=== PATIENT | female | born 1985 | race Caucasian/White ===

== ENCOUNTER → 2024-07-22 | Outpatient (CLI) | payer MEDICAID, SELFPAY ==
[2024-07-22 12:39] LABS: Absolute Lymphocyte Count 2.42 X10^3/uL (0.83-4.51); Absolute Neutrophil Count 2.6 X10^3/uL (2.0-7.7); Basophil# 0.07 X10^3/uL; Basophil% 1.3 % (0-1); Eosinophil# 0.11 X10^3/uL; Hematocrit 40.1 % (37-47); Hemoglobin 13.3 g/dL (12.0-15.0); Lymphocyte # 2.42 X10^3/ul (0.83-4.51); Lymphocyte % 43.4 % (19-41); Mean Corp Hgb Conc 33.2 g/dL (32-36); Mean Corpuscular Hgb 30.5 pg (27.0-32.0); Mean Platelet Vol. 9.9 fl (6.2-12.0); Monocyte# 0.41 X10^3/uL; Monocyte% 7.3 % (0-10); NRBC Flagged by Analyzer 0 % (0-5); Neutrophil # 2.55 X10^3/uL (2.7-7.7); Neutrophil % 45.6 % (47-70); Platelet Count 255 K/mm3 (150-450); RBC Distribution Width SD 40.8 fl (35.1-43.9); Red Blood Count 4.36 M/mm3 (4.2-5.4); White Blood Count 5.6 K/mm3 (4.4-11.0)
[2024-07-22 13:00] LABS: Vitamin D,25 Hydroxy 4.6 ng/mL
[2024-07-22 13:04] LABS: ALB/GLOB Ratio 1.2 RATIO (0.9-2.4); AST(SGOT) 15 U/L (15-37); Alanine Aminotransfer ALT/SGPT 30 U/L (13-56); Albumin, Serum 3.6 g/dL (3.2-5.0); Alkaline Phosphatase 53 U/L (45-117); Anion Gap 3 (5-15); BUN 9 mg/dL (7-18); Calcium,Total 8.6 mg/dL (8.5-10.1); Chloride 108 mmol/L (98-107); Creatinine, Serum 0.69 mg/dL (0.55-1.02); EST Glomerular Filtration Rate 99 mL/min (>60); Est Glom Filt Rate - Afr Amer 120 mL/min (>60); Ferritin 17 ng/mL (8-252); Globulin 3.1 g/dL (2.2-4.2); Glucose 78 mg/dL (74-106); Iron 36 ug/dL (50-170); Iron Binding Capacity,Total 284 ug/dL (250-450); PERCENT IRON SATURATION 12.7 % (15.0-55.0); Potassium 3.7 mmol/L (3.5-5.1); Protein, Total 6.7 g/dL (6.4-8.2); Sodium Level 136 mmol/L (136-145)
== END | disposition home or self-care (01) ==
PROVIDERS: PCP Family Medicine; Referring Provider Family Medicine; Visit Provider Family Medicine
DX: R63.6 Underweight (principal); K31.89 Other diseases of stomach and duodenum; N92.0 Excessive and frequent menstruation with regular cycle; Z13.1 Encounter for screening for diabetes mellitus
CPT/HCPCS: 36415; 80053; 82306; 82728; 83540; 83550; 84443; 85025

== ENCOUNTER → 2024-08-31 | Outpatient (CLI) | payer MEDICAID, SELFPAY | END | disposition home or self-care (01) | PROVIDERS: PCP Family Medicine; Referring Provider Family Medicine; Visit Provider Family Medicine | DX: E03.8 Other specified hypothyroidism (principal) | CPT/HCPCS: 36415; 84443 ==

== ENCOUNTER → 2024-09-24 | Outpatient (CLI) | payer MEDICAID, SELFPAY ==
--- NOTE | 2024-09-24 13:56 | VDUE_ITS ---
Reason For Study Reason For Study: Left hand pain Left Proximal Left jugular vein is spontaneous, widely patent, phasic, with no intraluminal echogenicity noted. Left subclavian vein is spontaneous, widely patent, phasic, with no intraluminal echogenicity noted. Left Arm Left axillary vein is spontaneous, patent, phasic, competent, compressible and demonstrates augmentation. Left brachial vein is compressible. Left cephalic vein is compressible. Left basilic vein is compressible. Left Lower Arm Left radial vein is compressible. Left ulnar vein is compressible. Superficial palmar arch vein noted that measures 0.11 x 0.12 cm is INCOMPETENT for greater than 0.5 seconds. Superficial palmar arch artery measures 0.12 x 0.13 cm, with a velocity of 27.8 cm/sec. VL/Venous Duplex US, Unilateral Interpretation Summary Deep veins of the left upper extremity are patent and compressible segmentally. There is no evidence of deep vein thrombosis. Superficial veins of the left upper extremity are patent and compressible segme ntally. There is no evidence of superficial vein thrombosis. Reflux noted in superficial vein on palmar surface Ordering Physician: Shayla Kauffman Referring Physician: Yokasta Miller Performed By: Yvette Sloan RVT ???
== END | disposition home or self-care (01) ==
LOC: CVS 13:52
PROVIDERS: PCP Family Medicine; Referring Provider Physician Assistant; Visit Provider Physician Assistant
DX: M79.642 Pain in left hand (principal); R22.32 Localized swelling, mass and lump, left upper limb
CPT/HCPCS: 93971

== ENCOUNTER 2025-01-18 11:03 | Outpatient (CLI) | payer MEDICAID, SELFPAY ==
[2025-01-18 13:33] LABS: Cholesterol 173 mg/dL (<=200); High Density Lipoprotein 63 mg/dL; Low Density Lipoprotein Calc. 93 mg/dL; Triglycerides 83 mg/dL; Very Low Density Lipoprotein 17 mg/dL (5-40); Vitamin D,25 Hydroxy 19.2 ng/mL (30-100); cholesterol:hdl ratio screen 2.74
--- OUTSIDE RECORDS SUMMARY | 2025-01-18 22:16 | XMS RPT_ITS | CCD ---
Author Organization [facility] Care Team Providers Care Testboard Operator Name Role Phone Latrice Horner Primary Care Provider [phone] Janell, Ms. Armin Mejia Attending Chloe Maciel, Ms. Armin Mejia Attending Chloe Horner MD, [facility] Primary Care Provider MICHAEL HERNANDEZ Attending Unavailable [facility] Evens RAIN, [facility] Primary Care Provider [phone] Maico RAIN, [facility] Primary Care Provider [phone] Shayla Kauffman Attending Unavailable Maico, Chalon Referring Unavailable Maico, Chalon Primary Care Unavailable Maico, Chalon Primary Care Unavailable Maico, Yokasta Attending Unavailable Maico, Chalon Referring Unavailable Maico, Ginnyon Attending Unavailable Maico, Chalon Referring Unavailable Maico, Chalon Primary Care Unavailable Neptali Murray Consulting Unavailabl e Kauffman, Shayla Attending Unavailable Kauffman, Shayla Referring Unavailable Maico, Chalon Primary Care Unavailable Brent Samuel Attending Unavailable Kauffman, Shayla Referring Unavailable Maico, Chalon Primary Care Unavailable Maico, Chalon Primary Care Unavailable Cassy Rosen Attending Unavailable Maico, Chalon Referring Unavailable NEPTALI MURRAY Attending Unavailabl e MAICO, CHALON Primary Care Unavailable NEPTALI MURRAY Referring Unavailabl e MAICO, CHALON Primary Care Unavailable NEPTALI MURRAY Attending Unavailabl e SELF Referring Unavailable MAICO, CHALON Primary Care Unavailable Allergies Allergy Classification Reported Allergen(s) Allergy Type Date of Onset Reaction(s) Facility (12 sources) Cefadroxil; Translations: [CEFADROXIL] Drug Allergy 6 Hives, Itching, Unknown [facility] [place] (1 source) Azithromycin Drug Allergy 5 [facility] Medications Current Medications Medication Drug Class(es) Dates Sig (Normalized) Sig (Original) 24 hr buPROPion hydrochloride 300 mg extended release oral tablet (1 source) Aminoketone Start: 0 take 1 tablet by mouth once daily in the morning buPROPion (WELLBUTRIN XL) 300 MG extended release tablet Indications: Adjustment reaction with anxiety and depression Take 1 tablet by mouth every morning 30 tablet 13 09/23/2019 Active citalopram 20 mg oral tablet (5 sources) Serotonin Reuptake Inhibitor Start: 2 End: 4 take 1 tablet by mouth once daily citalopram (CeleXA) 20 MG tablet Indications: Adjustment reaction with anxiety and depression Take 1 tablet (20 mg) by mouth daily. 90 tablet 3 08/26/2022 08/26/2023 Active clonazePAM 0.5 mg oral tablet (1 source) Benzodiazepine take 0.25 mg by mouth every twelve hours as needed clonazePAM (KLONOPIN) 0.5 mg tablet Take 0.25 mg by mouth two times a day as needed for anxiety. Active diphenhydrAMINE hydrochloride 25 mg oral capsule (4 sources) Histamine-1 Receptor Antagonist diphenhydrAMINE (BENADryl) 25 MG capsule Take 25 mg by mouth. 0 Active ibuprofen 200 mg oral tablet (4 sources) Nonsteroidal Anti-inflammatory Drug take 1 tablet by mouth every six hours as needed ibuprofen 200 MG tablet Take 200 mg by mouth every 6 hours as needed. 0 Active Magnesium Oxide (4 sources) magnesium oxide (Mag-Ox) 400 mg tablet 400 mg as needed. 0 Active methylPREDNISolone 4 mg oral tablet (1 source) Corticosteroid Start: 0 methylPREDNISolone (MEDROL DOSEPACK) 4 MG tablet Indications: Hand pain, left , Thumb pain, left Take by mouth. 1 kit 0 01/03/2020 Active Completed/Discontinued Medications Medication Drug Class(es) Dates Sig (Normalized) Sig (Original) lamoTRIgine 200 mg oral tablet (14 sources) Mood Stabilizer, Anti-epileptic Agent Start: 06-28-2022 End: 09-23-2023 take 1 tablet by mouth once daily lamoTRIgine (LaMICtal) 200 MG tablet Indications: Adjustment reaction with anxiety and depression Take 1 tablet (200 mg) by mouth daily. 90 tablet 3 08/26/2022 09/26/2022 Discontinued Start: 09-23-2019 take 1 tablet by mandy once daily lamoTRIgine (LAMICTAL) 200 MG tablet Indications: Adjustment reaction with anxiety and depression Take 1 tablet by mouth daily 30 tablet 13 09/23/2019 Active LAMOTRIGINE (PINEDO ICTAL ODT ORAL) Take by mouth. Active Problems Active Problems Problem Classification Problem Date Documented Da te Episodic/Chronic Adjustment disorders (11 sources) Adjustment disorder with mixed anxiety and depressed mood; Translations: [Adjustment disorder with mixed anxiety and depressed mood] Onset: 12-06-2015 12-06-2015 Chronic Other aftercare (3 sources) Other intermodal customer service (current) drug therapy; Translations: [Other intermodal customer service (current) drug therapy] Onset: 01-20-2023 Episodic Other connective tissue disease (1 source) Pain in left hand; Translations: [Pain in left hand] Onset: 10-06-2024 Episodic Other connective tissue disease (1 source) Pain of left hand; Translations: [Pain in left hand] 12-10-2024 Episodic Other connective tissue disease (1 source) Pain of left hand; Translations: [Hand pain, left] Other connective tissue disease (1 source) Pain in left thumb; Translations: [Thumb pain, left] Other nutritional; endocrine; and metabolic disorders (1 source) Underweight; Translations: [Underweight] Onset: 09-06-2024 Episodic Other skin disorders (3 sources) Mass of hand; Translations: [Localized swelling, mass and lump, left upper limb] 09-18-2024 Episodic Other skin disorders (2 sources) Disorder of left upper extremity; Translations: [Localized swelling, mass and lump, left upper limb] 10-07-2024 Episodic Other skin disorders (1 source) Localized swelling, mass and lump, left upper limb; Translations: [Localized swelling, mass, or lump of left upper extremity] Onset: 11-01-2024 Episodic Thyroid disorders (1 source) Other specified hypothyroidism; Translations: [Other specified hypothyroidism] Onset: 09-15-2024 Chronic Unclassified (1 source) New Onset: 09-17-2024 Past or Other Problems Problem Classification Problem Date Documented Da te Episodic/Chronic Blindness and vision defects (6 sources) Myopia; Translations: [Myopia, unspecified eye] Onset: 12-04-2015 12-04-2015 Episodic Unclassified (2 sources) Disorder of left upper extremity 10-07-2024 Results Test Name Value Interpretation Reference Range Leroy Avila 12-10-2024 CNOV Office Visit (AGHWW1 ) SHANNON DUNN ([id number]) 1985 F Date Time Provider Department 12/10/24 1:00 PM NEPTALI MURRAY AGHWW1 During your visit today, we recorded the following information about you: Respiration Weight Height 20/minute 47.2 kg 1.6 m Neptali Murray MD 12/10/2024 4:06 PM Signed Hand Clinic Follow-up Note Prior Hx: 2019 L thenar mass arose 09/24/24 U/S LUE-no DVT, reflux noted in superficial vein on palmar surface 11/06/24 MRI L hand-no obvious soft tissue mass Interval Hx: Mona is a 39-year-old female presenting for evaluation of a left thenar mass. Left Thenar Mass: - Persistent left thenar mass with no change in symptoms. - Describes a pressure pain rather than sharp or stabbing pain. - Aggravated by using the hand, particularly the thumb; worsens with activities such as playing guitar, video games, and floor exercises. - Experiences a pulling sensation at night, affecting sleep. - Notable swelling and pain when holding objects, such as washing dishes. - Avoids using the left hand due to discomfort. - Ultrasound on 09/24/2024 showed no DVT, but noted reflux in a superficial vein. - MRI on 11/06/2024 showed no obvious mass. Exam: - Musculoskeletal: - Left Hand: - Skin intact, able to make a full fist. - No tenderness over the CMC joint, radial styloid, or FCR tendon. - No triggering of the thumb. - No pain with resistive wrist flexion. - Prominent vein over the proximal portion of the thenar eminence, not present on the contralateral side. - Tenderness over the prominent vein on the thenar eminence. Imaging: Imaging: - (11/06/2024) MRI of the left hand: No obvious mass or uptake. - (09/24/2024) Ultrasound of the left hand: No evidence of deep venous thrombosis; mild reflux in the superficial vein. Assessment/Plan: (M79.642) Pain in left hand New and/or prior imaging was reviewed with the pt 1. Pain in left hand (M79.642) - Persistent pain and swelling in the left thenar region, exacerbated by hand use and thumb motion; described as a pressure pain with a pulling sensation at night. - Ultrasound on 09/24/2024 showed no DVT, but noted reflux in a superficial vein. MRI on 11/06/2024 showed no obvious mass. - Physical exam reveals intact skin, full fist formation, no tenderness over CMC, radial styloid, or FCR tendon. No triggering of the thumb. Prominent vein observed over the proximal portion of the thenar eminence, not present on the contralateral side. Tenderness noted upon palpation of the prominent vein. - Discussed potential surgical intervention to ligate and excise the prominent vein, but also considered referral to vascular surgery for further evaluation and potential alternative treatments such as coiling. - Patient agrees with the plan to consult vascular surgery. - Referral to vascular surgery initiated for further evaluation and management. I was very colin with the patient and explained that I have never seen a vein like this in the hand that causes pain with pressure, it is possible, but I cannot guarantee that this is her pain generator That being said on exam, the vein is definitely there and it is more prominent than the contralateral side I do want her to get a second opinion from vascular surgery before we do surgery on the hand ourselves If she does want surgery, at this point it has been 5 years and she has had multiple test, I do think it is reasonable to make a Verna incision over the thenar eminence and ligate the prominent veins, I did explain that this would give her a scar which also may be painful, and I told her that I cannot guarantee that this is going to solve her problem, I would only do the surgery if it was a last resort for her because she cannot get relief from anything else and with the expressed understanding that she knows this may not make her better Return to clinic after vascular Will continue to monitor patient for Pain in left hand, patient to schedule visit as per follow up discussed. Medical Decision Making: Problems: Moderate: 1+ chronic illnesses with change Data: Unique test result(s) reviewed: 2 Risk: Moderate: Moderate risk from testing/treatment Medical Decision Making Level: 4 - Moderate Neptali Murray MD Hand Surgery *The above reflects my independent exam and review. I saw and examined the patient myself personally. Parts of the HPI, ROS, exam, and impression/plan may have been copied from my previous clinical note and remain pertinent. Current changes have been made and documented today. Other parts or date were deleted if not relevant for today. Plan as outlined.* *This note was produced using speech recognition software and may contain errors related to that system including but not limited to punctuation, spelling, grammar, gender, and words (more content not included)... Normal [facility] MRI HAND WO IVCON LTon 11-01 MRI HAND WO IVCON LT * * *Final Report* * * DATE OF EXAM: Nov 01 2024 5:25PM AWM 0200 - MRI HAND WO IVCON LT / PROCEDURE REASON: Localized swelling, mass, or lump of left upper extremity * * * * Physician Interpretation * * * * EXAM: MRI HAND WO IVCON LT HISTORY: Localized swelling, mass, or lump of left upper extremity . Pain on palm at 1st MCP and CMC joint, worsening since 2019, no known injuries TECHNIQUE: MRI HAND WO IVCON LT. Multiplanar multisequence imaging of the left hand was performed without contrast material. COMPARISON: X-ray 09/17/2024. RESULT: Osseous structures: No fracture, stress reaction, avascular necrosis, or focal osseous lesion identified. Joints: Small distal radial ulnar joint effusion. Mild osteoarthropathy of the radial side of the wrist with small osteophytes and some cartilage thinning. There is subchondral cyst within the third metacarpal head 0.5 cm. Mild metacarpal phalangeal and interphalangeal cartilage thinning. Ligaments: No evidence of tear. Tendons: Flexor tendons: No evidence of tear. Trace amount of flexor pollicis tendon tenosynovitis at the proximal phalanx series 3 image 9. Extensor tendons: Normal. No tear. No evidence of tenosynovitis. Abductor/adductor: No evidence of tear or tenosynovitis. Nerves: Normal signal and size of the median nerve within the carpal tunnel. Normal signal and size of the ulnar nerve within Guyon's canal. Soft tissues: Trace amount of superficial susceptibility artifact seen along the thumb at the distal phalanx, palmar aspect series 4 image 7. Findings can be seen with previous trauma, surgery or foreign body or could be along the skin surface. No foreign body seen on the comparison x-ray. No soft tissue mass or cyst. IMPRESSION: 1. Mild osteoarthropathy wrist and hand. 2. Trace susceptibility artifact seen along the distal thumb, palmar aspect. Findings can be seen with previous trauma, surgery or foreign body. No foreign body is seen on the comparison x-ray. This could also represent contamination on the skin surface. This is of doubtful clinical significance. 3. Trace flexor pollicis tendon tenosynovitis at the proximal phalanx. 4. No noncontrast MRI evidence of osseous or soft tissue mass or other acute finding. Environmental Health And Safety Intern: [facility] Transcribe Date/Time: Nov 06 2024 10:24A Dictated by : GUILLERMINA YANCEY MD This examination was interpreted and the report reviewed and electronically signed by: GUILLERMINA YANCEY MD on Nov 06 2024 10:31AM EST [id number] Normal [facility] Venous Duplex US, Unilateral on 09-24-2024 Venous Duplex US, Unilateral [facility] [address] [place] [address] Venous Duplex US, Unilateral 09/24/24 1357 MR#: [id number] Acct: [id number] Name: SHANNON DUNN Rep #: [id number] : 1985 39 From: Brent Samuel MD Attending Dr: ROJELIO Bryan Status: REG CLI Ordering Dr: Shayla Kauffman Date: 09/24/24 Location: [facility] Sex: F C Admitted: Reason For Study Reason For Study: Left hand pain Left Proximal Left jugular vein is spontaneous, widely patent, phasic, with no intraluminal echogenicity noted. Left subclavian vein is spontaneous, widely patent, phasic, with no intraluminal echogenicity noted. Left Arm Left axillary vein is spontaneous, patent, phasic, competent, compressible and demonstrates augmentation. Left brachial vein is compressible. Left cephalic vein is compressible. Left basilic vein is compressible. Left Lower Arm Left radial vein is compressible. Left ulnar vein is compressible. Superficial palmar arch vein noted that measures 0.11 x 0.12 cm is INCOMPETENT for greater than 0.5 seconds. Superficial palmar arch artery measures 0.12 x 0.13 cm, with a velocity of 27.8 cm/sec. VL/Venous Duplex US, Unilateral Interpretation Summary Deep veins of the left upper extremity are patent and compressible segmentally. There is no evidence of deep vein thrombosis. Superficial veins of the left upper extremity are patent and compressible segmentally. There is no evidence of superficial vein thrombosis. Reflux noted in superficial vein on palmar surface Ordering Physician: Shayla Kauffman Referring Physician: Yokasta Miller Performed By: Yvette Sloan Luca ??? 09/28/24 0814 Date Brent Samuel MD CC: ROJELIO Bryan; Dr. Yokasta Millre MD Date Dictated: 09/24/24 1357 Date Transcribed: 09/28/24813 Environmental Health And Safety [facility] (AGHWW1 ) SHANNON DUNN ([id number]) 1985 F Date Time Provider Department 09/17/24 11:00 AM NEPTALI MURRAY AGHWW1 During your visit today, we recorded the following information about you: Temperature Weight Height 98.3 degrees 47.2 kg 1.6 m Adrian Guillory Tech 09/18/2024 11:59 AM Signed REVIEW OF SYSTEMS: GENERAL: Well developed, well nourished. No acute distress PAIN: Negative for pain, history of chronic pain or current treatment for chronic pain conditions CARDIOVASCULAR: Negative for chest pain, leg swelling and palpations. MSK: Negative for joint swelling SKIN: Negative for lesions, rash, itching, metal sensitivity NEURO: Numbness/tingling of extremties ENDOCRINE: Negative for diabetic associated symptoms HEMATOLOGY: Negative for excessive bleeding, clots, bleeding disorders. Neptali Murray MD 09/18/2024 11:59 AM Signed Hand Surgery New Pt Note HPI: 39-year-old female [id number] not working No diabetes, no smoking She thinks that in 2019 this thenar mass arose and it has been worked up at [facility] Never had an MRI Never had an injury Initially did not cause any other pain Now she has a hard time doing some ADLs and playing the guitar and she gets some swelling and tightness it is hard to put pressure over this area No evidence of any other lumps or bumps in the body PMH: History reviewed. No pertinent past medical history. ALLERGIES Allergen Reactions Duracef [Cefadroxil] Unknown Social History Tobacco Use Smoking status: Former Types: Cigarettes Smokeless tobacco: Never Substance Use Topics Alcohol use: Not Currently Drug use: Never Review of Systems: 12 point review of systems was performed and found to be non-contributory Exam: Left hand Skin intact Full finger flexion/extension, FPL/EPL intact SILT m/r/u Fingers wwp It is hard to feel, but there seems to be a 2 x 1 cm mass over the ulnar aspect of the thenar eminence, it almost feels like a vein that is being rolled over, this is not present on the contralateral side though and can feel something, she is slightly tender to palpation when I push year Imaging: XR 3 views left hand No obvious bony pathology Assessment/Plan: (R22.32) Mass of left hand (primary encounter diagnosis) New and/or prior imaging was reviewed with the pt Unclear exactly what this is, it could just be a prominent vein, could be a clotted vein, she is scheduled for vein ultrasound at [facility] and I think she should get this I told her that after she sends me these results, we can decide if this is something that needs a procedure or if I want to get an MRI to obtain more information Return to clinic after she gets the pain ultrasound Will continue to monitor patient for Mass of left hand (primary encounter diagnosis), patient to schedule visit as per follow up discussed. Medical Decision Making: Problems: Moderate: New problem with uncertain prognosis Data: Unique test(s) ordered: 1 Risk: Low: Low risk from testing/treatment Medical Decision Making Level: 3 - Low Neptali Murray MD Hand Surgery *The above reflects my independent exam and review. I saw and examined the patient myself personally. Parts of the HPI, ROS, exam, and impression/plan may have been copied from my previous clinical note and remain pertinent. Current changes have been made and documented today. Other parts or date were deleted if not relevant for today. Plan as outlined. *This note was produced using speech recognition software and may contain errors related to that system including but not limited to punctuation, spelling, grammar, gender, and words or phrases that may be inappropriate.* Allergies As of Date: 09/17/2024 Noted Allergy Reaction DURACEF (CEFADROXIL) 12/04/2015 16 - Unknown Date Reviewed: 09/17/2024 Reviewed by: Adrian Guillory Tech - Fully Assessed Reason for Visit: New [293817] Pain [78] Primary Visit Diagnosis:Mass of left hand [R22.32] Order(s):XR HAND GENERAL 3V PA/LAT/OBL LEFT [[id number]] Order #: [id number] Prescriptions as of 09/18/2024 - LAMOTRIGINE (LAMICTAL ODT ORAL) Take by mouth. Problem List As Of Date 09/17/2024 Noted Resolved Myopia [H52.10] 12/04/2015 Letter Text Encounter Status:Closed by NEPTALI MURRAY on 09/18/24 [facility] 09-09-2024 CNPN Telephone (AGPOB1) SHANNON DUNN ([id number]) 1985 F Date Time Provider Department 09/09/24 NEPTALI MURRAY AGPOB1 During your visit today, we recorded the following information about you: Jolly Merino 09/09/2024 2:26 PM Signed ----- Message from Shayla Segovia sent at 09/09/2024 12:52 PM EST ----- Regarding: Orthopedics / Hand: RFV Not Found / RFV Not Found In Schd Tool // an artery is budging out of left hand palm causing swelling between palm and left thumb Orthopedics / Hand: RFV Not Found / RFV Not Found In Schd Tool // an artery is budging out of left hand palm causing swelling between palm and left thumb Patient has been identified by name and Date of (Y/N): yes Patient: Shannon Dunn Date of : 1985 Previous Provider Seen: n/a Body Part(s) Identified: left hand Diagnosis/Reason For Visit: artery issue Reason for the call/escalation: Dx not in tool If reason for call/escalation is discharge from ED/ER or Hospital, which facility was the patient seen at: patient saw vascular surgeon who referred her to ortho hand doctor Was an appointment scheduled (Y/N): no Person calling if other than patient: no Return call to if other than patient: no Best contact number: [phone] Thank you, Shayla Gunderson September 09, 2024 12:55 PM Jolly Merino 09/09/2024 2:26 PM Signed APPT ,MADE Allergies As of Date: 09/09/2024 Noted Allergy Reaction DURACEF (CEFADROXIL) 12/04/2015 16 - Unknown Date Reviewed: 12/04/2015 Reviewed by: Rochelle Sanchez - Fully Assessed Reason for Visit: Consult [502] Prescriptions as of 09/09/2024 - LAMOTRIGINE (LAMICTAL ODT ORAL) Take by mouth. 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 [address] [place] [address] OFFICE VISIT Date of Service: 08/31/24 MR#: [id number] Acct: [id number] Name: SHANNON DUNN Rep #: [id number] : 1985 Provider: ROJELIO Bryan Age/Sex: 39/F Location: [facility] Status: Signed Intake Vital Signs 08/05/24 10:10 08/31/24 08:40 Height 5 ft 3 in Weight: 104 lb BP 102/62 Blood Pressure Location Lt brachial Position Sitting Respiration 16 Pulse 85 Pulse Source Monitor Temp 97.7 F L Temp Source Temporal Pulse Oximetry (%) 100 Oxygen Delivery Method room air Intake Visit Reasons: Varicose Veins w/ Complications Chief Complaint: abdominal pain Is patient in pain?: No Allergies azithromycin Allergy (Intermediate, Verified 08/31/24 08:42) Rash Medications ???Medication ???Instructions ???Recorded ???Confirmed ???Type clonazepam 2 mg tablet (Klonopin) 2 mg PO QDAY 08/02/24 History lamotrigine 200 mg tablet 200 mg PO QDAY 08/02/24 History (Lamictal) trazodone 50 mg tablet 50 mg PO QDAY 08/02/24 History cholecalciferol (vitamin D3) 1,250 1,250 mcg PO QWEEK 08/05/24 08/05/24 History mcg (50,000 unit) oral wafer Is last menstrual period known: Yes Post menopausal: No Patient : No Have you fallen in the past year?: No PFSH Medical History Stomach irritation Varicose veins with complications Insomnia Bipolar 2 disorder Low weight Family History Grandfather CAD (coronary artery disease) Uncle CAD (coronary artery disease) Cancer Grandmother Hypertension CAD (coronary artery disease) Uncle Diabetes Aunt Diabetes Social History Smoking Status: Never smoker alcohol intake: never HPI HPI HPI: SHANNON DUNN, is a 39 F who presents to the office today for evaluation of L hand pain and swelling with associated prominent/visible vein as referred from her PCP. She reports that she has had this visible vein in the area of her L thenar eminence for about 5 years. Over the last year she has had increasing pain and focal swelling through this area to the point where she cannot apply much pressure to the area and avoids using her hand. This has led her to stop playing guitar and participating in other activities she enjoys, she feels she notes some weakness in this hand as well. She can sometimes see pulsation in this vein. She has not had specific injury to the area and no prior surgeries. She denies any traumatic blood draws or prior IVs in the LUE. She denies any injury/surgery to the rest of her LUE. No prior medports/PICCs, radiation. She was seen by an museum informatics specialist in 2019, at that time reports it was mostly just the visible vein without many symptoms and reports she had a normal XR. She states they consider further testing including contrast but this was never completed. She reports applying heat makes it worse, ice helps some with swelling but not with the pain, and tylenol does not seem to offer much benefit. She denies any other painful varicosities, prior VTE/SVT. ROS General General: Yes fatigue; No weight change, appetite, colon cancer, breast cancer or weakness HEENT HEENT: No difficulty swallowing, eye injury, eye surgery, swollen glands or hoarseness Endo Endocrine: No thyroid disease, diabetes mellitus, thyroid cancer, Hair loss, heat intolerance or cold intolerance Skin Skin: No rash or changing moles Musc Musculoskeletal: No back problems, arthritis, rheumatoid arthritis, gout or joint pain Cardio Cardiovascular: No murmur, pacemaker, heart disease, atrial fibrillation, high blood pressure, heart attack, heart stent, palpitations, shortness of breat with exertion or chest pain Psych Psychiatric: Yes depression and anxiety; No hearing voices Resp Respiratory: No shortness of breath, No sleep apnea, No cough, No COPD, No asthma, No emphysema and No wheezing Gastro Gastrointestinal: Yes abdominal pain, Yes nausea or vomiting, Yes diarrhea, No constipation, No blood in stool, Yes acid reflux, No hemorrhoids, No ulcers, No gallbladder problem and No black,tarry stools Rafa Hematologic: No blood thinners, No blood disorders, No bleeding, No anemia and No blood clots Neuro Neurologic: No system reviewed and no additional complaints, except as documented, No as per HPI, No abnormal gait, No abnormal hearing, No abnormal movements, No abnormal speech, No behavioral changes, Yes burning sensations, No confusion, No convulsions, No disequilibrium, No dizziness, No localized weakness, No frequent falls, No headache(s), No lack of coordination, No loss of vision, No memory loss, No numbnes (more content not included)... Normal [facility] Thyroid Stim Hormone (TSH)on 08-31-2024 TSH 4.020 uIU/mL High 0.358-3.740 [facility] Comment on above: Order Comment: Order Date: 08/09/24 Order Info: 3016-3 - TSH Performed By: #### L 501.9520 #### [facility] [address] [place], [address] Gastroenterology Visit Repor ton 08-05-2024 Gastroenterology Visit Report [facility] [address] [place] [address] OFFICE VISIT Date of Service: 08/05/24 MR#: [id number] Acct: [id number] Name: SHNANON DUNN Rep #: [id number] : 1985 Provider: ROJELIO Kirkpatrick Age/Sex: 39/F Location: [facility] Status: Signed Intake Vital Signs 08/05/24 10:10 Height 5 ft 3 in Weight: 107 lb 2 oz BMI 18.9 Intake Visit Reasons: LOW WEIGHT Chief Complaint: abdominal pain Allergies azithromycin Allergy (Intermediate, Verified 08/02/24 16:28) Rash Medications ???Medication ???Instructions ???Recorded ???Confirmed ???Type clonazepam 2 mg tablet (Klonopin) 2 mg PO QDAY 08/02/24 History lamotrigine 200 mg tablet 200 mg PO QDAY 08/02/24 History (Lamictal) trazodone 50 mg tablet 50 mg PO QDAY 08/02/24 History cholecalciferol (vitamin D3) 1,250 1,250 mcg PO QWEEK 08/05/24 08/05/24 History mcg (50,000 unit) oral wafer omeprazole 40 mg capsule,delayed 40 mg PO QDAY #90 caps 08/05/24 08/05/24 Rx release Have you fallen in the past year?: No Nurse's Note: 08.05.24 Pt here to establish care with [facility] for N/V/C. Reports foods that are acidic, dairy, and greasy make her N/V. Reports a BM weekly. Denies blood in stools, abdominal pain and diarrhea. She has no prior hx of EGD or colonoscopy. [facility] Medical History Stomach irritation Varicose veins with complications Insomnia Bipolar 2 disorder Low weight Family History Grandfather CAD (coronary artery disease) Uncle CAD (coronary artery disease) Cancer Grandmother Hypertension CAD (coronary artery disease) Uncle Diabetes Aunt Diabetes Social History Smoking Status: Never smoker alcohol intake: never HPI HPI Chief Complaint: abdominal pain Details: SHANNON DUNN, is a 39 F who presents to the office today for establishment with [facility]. Pt was referred here to us for 10lbs weight loss over the past 2 years, epigastric pain and n/v. She tells me that this started around two years ago and slowly worsened. She will eat and then have n/v and epigastric burning. SHe has cut out gluten, coffee, dairy and greasy foods which does seem to help. She is nauseas around 3x per week and will vomit at least twice a week. She has not tried any medications at this time. Pt has never had an EGD and still has her gallbladder. ROS Const Constitutional: Positive for fatigue; No fever(s) or weight change ENT ENT: No difficulty swallowing Gastro GI: Positive for abdominal pain, constipation, heartburn, nausea/dyspepsia and vomiting; No belching, bloating, change in bowel habits, change in stool character, coffee ground emesis, cramping, diarrhea, difficulty swallowing, feeling full early, excessive flatus, incontinent of stools, Vomiting blood/hematemesis, Blood in stool, loose stools, Black,tarry stools, pain with swallowing or other Musc Musculoskeletal: No joint pain Skin Skin: Positive for dry skin; No yellowing of the eye or itchy eyes Psych Psychiatric: Positive for anxiety and Positive for depression Endo Endocrine: Positive for fatigue; No weight change Aller/Imm Allergy/Immunologic: No itchy eyes Rafa/Lymp Hematologic/Lymphatic: No easy bleeding or easy bruising Exam Const General: cooperative and comfortable Nutritional Appearance: average body habitus and thin HENMT Head: normal to inspection Ears: hearing grossly normal bilaterally Nose: external nose normal Face and sinus: normal facial exam Eyes General: appearance normal, both eyes and all related structures Neck Neck: normal visual inspection Chest Chest palpation inspection: normal inspection of the chest and normal palpation of entire chest wall Resp Effort Inspection: normal respiratory effort Auscultation: Bilateral: Clear to Auscultation Cardio Palpation: normal PMI Rate: regular rate Rhythm: regular rhythm GI Inspection: normal to inspection Auscultation: normal bowel sounds Percussion: normal to percussion Palpation: no hepatosplenomegaly Skin General: no rashes or lesions noted Neuro General: patient alert Extrem General: normal to inspection Psych Affect: normal affect Assessment and Plan Assessment and Plan (1) Epigastric pain: Status: Acute Plan: This is a 39 yo female pt established care for epigastric pain, n/v and 10 lbs weight loss over the past two years. She has never had an EGD. SHe does feel like the pain is coming from her stomach and esophagus. Will trial omeprazole 40 mg once a day for three months. If she continues to have symptoms, will order an EGD. She would like to try medications first. She was advised if her sy (more content not included)... Normal [facility] Miscellaneous Lab Procedureo n 08-03-2024 [facility] LAB TEST Normal [facility] Comment on above: Order Comment: VIT K #[id number] PLASMA PFL RF Result Comment: TEST RESULTS LIMITS Vitamin K1 0.23 ng/mL 0.10-2.20 TEST[facility] PERFOR[facility] AT [facility]. ORIGINAL REPORT ON FILE IN LAB CONTAINS ADDITIONAL TEST SITE INFORMATION. Performed By: #### L 801.1541 #### [facility] [address] [place], [address] CBC W/Diff, Automatedon 07-04 Absolute Lymph 2.42 X10 3/uL Normal 0.83-4.51 [facility] Comment on above: Order Comment: Order Date: 07/22/24 Order Info: 0184-1 - CBCD Performed By: #### L 503.6550, L506.1000, L503.6030, L501.9520, L100.0100, L500.4050 #### [facility] [address] [place], [address] Absolute Neut 2.6 X10 3/uL Normal 2.0-7.7 [facility] Comment on above: Order Comment: Order Date: 07/22/24 Order Info: 0184-1 - CBCD Performed By: #### L 503.6550, L506.1000, L503.6030, L501.9520, L100.0100, L500.4050 #### [facility] [address] [place], [address] Basophils/100 WBC (Bld) 1.3 % High 0-1 [facility] Comment on above: Order Comment: Order Date: 07/22/24 Order Info: 0184- - CBCD Performed By: #### L 503.6550, L506.1000, L503.6030, L501.9520, L100.0100, L500.4050 #### [facility] [address] [place], [address] Eosinophils/100 WBC (Bld) 2.0 % Normal 0-5 [facility] Comment on above: Order Comment: Order Date: 07/22/24 Order Info: 018- - CBCD Performed By: #### L 503.6550, L506.1000, L503.6030, L501.9520, L100.0100, L500.4050 #### [facility] [address] [place], [address] Erythrocyte distribution width (RBC) [Ratio] 12.0 % Normal 11.6-14.6 [facility] Comment on above: Order Comment: Order Date: 07/22/24 Order Info: 0184- - CBCD Performed By: #### L 503.6550, L506.1000, L503.6030, L501.9520, L100.0100, L500.4050 #### [facility] [address] [place], [address] Hematocrit (Bld) [Volume fraction] 40.1 % Normal 37-47 [facility] Comment on above: Order Comment: Order Date: 07/22/24 Order Info: 0184- - CBCD Performed By: #### L 503.6550, L506.1000, L503.6030, L501.9520, L100.0100, L500.4050 #### [facility] [address] [place], [address] Hemoglobin (Bld) [Mass/Vol] 13.3 g/dL Normal 12.0-15.0 [facility] Comment on above: Order Comment: Order Date: 07/22/24 Order Info: 0184-1 - CBCD Performed By: #### L 503.6550, L506.1000, L503.6030, L501.9520, L100.0100, L500.4050 #### [facility] [address] [place], [address] IG% 0.400 Normal 0.0-0.9 [facility] Comment on above: Order Comment: Order Date: 07/22/24 Order Info: 018- - CBCD Result Comment: IG% - Immature Granulocytes (promyelocytes, myelocytes and metamyelocytes) > 1% indicates that a LEFT SHIFT is Present. Performed By: #### L 503.6550, L506.1000, L503.6030, L501.9520, L100.0100, L500.4050 #### [facility] [address] [place], [address] Lymphocytes/100 WBC (Bld) 43.4 % High 19-41 [facility] Comment on above: Order Comment: Order Date: 07/22/24 Order Info: 0184- - CBCD Performed By: #### L 503.6550, L506.1000, L503.6030, L501.9520, L100.0100, L500.4050 #### [facility] [address] [place], [address] MCH (RBC) [Entitic mass] 30.5 pg Normal 27.0-32.0 [facility] Comment on above: Order Comment: Order Date: 07/22/24 Order Info: 0184-1 - CBCD Performed By: #### L 503.6550, L506.1000, L503.6030, L501.9520, L100.0100, L500.4050 #### [facility] [address] [place], [address] MCHC (RBC) [Mass/Vol] 33.2 g/dL Normal 32-36 [facility] Comment on above: Order Comment: Order Date: 07/22/24 Order Info: 0184-1 - CBCD Performed By: #### L 503.6550, L506.1000, L503.6030, L501.9520, L100.0100, L500.4050 #### [facility] [address] [place], [address] MCV (RBC) [Entitic vol] 92.0 fL Normal 81-99 [facility] Comment on above: Order Comment: Order Date: 07/22/24 Order Info: 018- - CBCD Performed By: #### L 503.6550, L506.1000, L503.6030, L501.9520, L100.0100, L500.4050 #### [facility] [address] [place], [address] Monocytes/100 WBC (Bld) 7.3 % Normal 0-10 [facility] Comment on above: Order Comment: Order Date: 07/22/24 Order Info: 0184- - CBCD Performed By: #### L 503.6550, L506.1000, L503.6030, L501.9520, L100.0100, L500.4050 #### [facility] [address] [place], [address] Neutrophils/100 WBC (Bld) 45.6 % Low 47-70 [facility] Comment on above: Order Comment: Order Date: 07/22/24 Order Info: 0184- - CBCD Performed By: #### L 503.6550, L506.1000, L503.6030, L501.9520, L100.0100, L500.4050 #### [facility] [address] [place], [address] Nucleated RBC (Bld) [#/Vol] 0 10*3/uL Normal 0-5 [facility] Comment on above: Order Comment: Order Date: 07/22/24 Order Info: 0184-1 - CBCD Performed By: #### L 503.6550, L506.1000, L503.6030, L501.9520, L100.0100, L500.4050 #### [facility] [address] [place], [address] Platelet mean volume (Bld) [Entitic vol] 9.9 fL Normal 6.2-12.0 [facility] Comment on above: Order Comment: Order Date: 07/22/24 Order Info: 0184-1 - CBCD Performed By: #### L 503.6550, L506.1000, L503.6030, L501.9520, L100.0100, L500.4050 #### [facility] [address] [place], [address] Platelets (Bld) [#/Vol] 255 10*3/uL Normal 150-450 [facility] Comment on above: Order Comment: Order Date: 07/22/24 Order Info: 0184-1 - CBCD Performed By: #### L 503.6550, L506.1000, L503.6030, L501.9520, L100.0100, L500.4050 #### [facility] [address] [place], [address] RBC (Bld) [#/Vol] 4.36 10*6/uL Normal 4.2-5.[address] [facility] Comment on above: Order Comment: Order Date: 07/22/24 Order Info: 0184-1 - CBCD Performed By: #### L 503.6550, L506.1000, L503.6030, L501.9520, L100.0100, L500.4050 #### [facility] [address] [place], [address] RDW SD 40.8 fl Normal 35.1-43.9 [facility] Comment on above: Order Comment: Order Date: 07/22/24 Order Info: 0184-1 - CBCD Performed By: #### L 503.6550, L506.1000, L503.6030, L501.9520, L100.0100, L500.4050 #### [facility] [address] [place], [address] WBC (Bld) [#/Vol] 5.6 10*3/uL Normal 4.4-11.0 [facility] Comment on above: Order Comment: Order Date: 07/22/24 Order Info: 0184-1 - CBCD Performed By: #### L 503.6550, L506.1000, L503.6030, L501.9520, L100.0100, L500.4050 #### [facility] [address] [place], [address] Comprehensive Metabolic Prof ilon 07-22-2024 Albumin [Mass/Vol] 3.6 g/dL Normal 3.2-5.0 [facility] Comment on above: Order Comment: Order Date: 07/22/24 Order Info: 0786-1 - CMP Order Info: 3016-3 - TSH Order Info: 63658-5 - IB Order Info: 2276-4 - MAXIM Performed By: #### L 503.6550, L506.1000, L503.6030, L501.9520, L100.0100, L500.4050 #### [facility] [address] [place], [address] Albumin/Globulin [Mass ratio] 1.2 {ratio} Normal 0.9-2.4 [facility] Comment on above: Order Comment: Order Date: 07/22/24 Order Info: 0786-1 - CMP Order Info: 3016-3 - TSH Order Info: 44533-6 - IB Order Info: 227-4 - MAXIM Performed By: #### L 503.6550, L506.1000, L503.6030, L501.9520, L100.0100, L500.4050 #### [facility] [address] [place], [address] ALK P 53 U/L Normal 45-117 [facility] Comment on above: Order Comment: Order Date: 07/22/24 Order Info: 785-1 - CMP Order Info: 3015-10 - TSH Order Info: - IBC Order Info: 2275-11 - MAXIM Performed By: #### L 503.6550, L506.1000, L503.6030, L501.9520, L100.0100, L500.4050 #### [facility] [address] [place], [address] ALT [Catalytic activity/Vol] 30 U/L Normal 13-56 [facility] Comment on above: Order Comment: Order Date: 07/22/24 Order Info: 785-08 - CMP Order Info: 3015-10 - TSH Order Info: - IBC Order Info: 2275-11 - MAXIM Performed By: #### L 503.6550, L506.1000, L503.6030, L501.9520, L100.0100, L500.4050 #### [facility] [address] [place], [address] AST [Catalytic activity/Vol] 15 U/L Normal 15-37 [facility] Comment on above: Order Comment: Order Date: 07/22/24 Order Info: 1 - CMP Order Info: 3015-10 - TSH Order Info: - IBC Order Info: 2275-11 - MAXIM Performed By: #### L 503.6550, L506.1000, L503.6030, L501.9520, L100.0100, L500.4050 #### [facility] [address] [place], [address] Bilirubin [Mass/Vol] 0.30 mg/dL Normal 0.20-1.00 [facility] Comment on above: Order Comment: Order Date: 07/22/24 Order Info: 785-1 - CMP Order Info: 3015-10 - TSH Order Info: - IBC Order Info: 2275-11 - MAXIM Result Comment: For patients on eltrombopag therapy, use of Dimension Coggon TBIL is not recommended. Performed By: #### L 503.6550, L506.1000, L503.6030, L501.9520, L100.0100, L500.4050 #### [facility] [address] [place], [address] BUN/CRE 13.0 RATIO Normal 10-20 [facility] Comment on above: Order Comment: Order Date: 07/22/24 Order Info: 785-08 - CMP Order Info: 3 - TSH Order Info: 03970-8 - IBC Order Info: 2275-11 - MAXIM Performed By: #### L 503.6550, L506.1000, L503.6030, L501.9520, L100.0100, L500.4050 #### [facility] [address] [place], [address] CA,Total 8.6 mg/dL Normal 8.5-10.1 [facility] Comment on above: Order Comment: Order Date: 07/22/24 Order Info: 785-08 - CMP Order Info: 3015-10 - TSH Order Info: 81991-6 - IBC Order Info: 2275-11 - MAXIM Performed By: #### L 503.6550, L506.1000, L503.6030, L501.9520, L100.0100, L500.4050 #### [facility] [address] [place], [address] Chloride [Moles/Vol] 108 mmol/L High 98-107 [facility] Comment on above: Order Comment: Order Date: 07/22/24 Order Info: 785-08 - CMP Order Info: 3015-10 - TSH Order Info: 17540-7 - IBC Order Info: 2275-11 - MAXIM Performed By: #### L 503.6550, L506.1000, L503.6030, L501.9520, L100.0100, L500.4050 #### [facility] [address] [place], [address] CO2 [Moles/Vol] 25.0 mmol/L Normal 21.0-32.0 [facility] Comment on above: Order Comment: Order Date: 07/22/24 Order Info: 0786-1 - CMP Order Info: 3 - TSH Order Info: 96443-5 - IBC Order Info: 2275-11 - MAXIM Performed By: #### L 503.6550, L506.1000, L503.6030, L501.9520, L100.0100, L500.4050 #### [facility] [address] [place], [address] Creatinine [Mass/Vol] 0.69 mg/dL Normal 0.55-1.02 [facility] Comment on above: Order Comment: Order Date: 07/22/24 Order Info: 785-08 - CMP Order Info: 3015-10 - TSH Order Info: - IB Order Info: 2275-11 - MAXIM Result Comment: The validity of the calculated GFR GFRAA in patients over 70 years has not been determined. Clinical correlation is essential. Performed By: #### L 503.6550, L506.1000, L503.6030, L501.9520, L100.0100, L500.4050 #### [facility] [address] [place], [address] EST GFR - AA 120 mL/min Normal >60 [facility] Comment on above: Order Comment: Order Date: 07/22/24 Order Info: 0786 - CMP Order Info: 3015-10 - TSH Order Info: 23830-4 - IB Order Info: 2275-11 - MAXIM Result Comment: Afri can Burmese GFR Calc Performed By: #### L 503.6550, L506.1000, L503.6030, L501.9520, L100.0100, L500.4050 #### [facility] [address] [place], [address] GAP 3 Low 5-15 [facility] Comment on above: Order Comment: Order Date: 07/22/24 Order Info: 0786- - CMP Order Info: 3015-10 - TSH Order Info: 43417-0 - IBC Order Info: 4 - MAXIM Performed By: #### L 503.6550, L506.1000, L503.6030, L501.9520, L100.0100, L500.4050 #### [facility] [address] [place], [address] GFR/1.73 sq M.predicted among non-blacks MDRD (S/P/Bld) [Vol rate/Area] 99 mL/min/{1.73_m2} Normal >60 [facility] Comment on above: Order Comment: Order Date: 07/22/24 Order Info: 785-08 - CMP Order Info: 3015-10 - TSH Order Info: 87440-1 - IBC Order Info: 4 - MAXIM Result Comment: Non- GFR Calc Performed By: #### L 503.6550, L506.1000, L503.6030, L501.9520, L100.0100, L500.4050 #### [facility] [address] [place], [address] Globulin (S) [Mass/Vol] 3.1 g/dL Normal 2.2-4.2 [facility] Comment on above: Order Comment: Order Date: 07/22/24 Order Info: 07 - CMP Order Info: 3015-10 - TSH Order Info: 51327-1 - IB Order Info: 4 - MAXIM Performed By: #### L 503.6550, L506.1000, L503.6030, L501.9520, L100.0100, L500.4050 #### [facility] [address] [place], [address] Glucose [Mass/Vol] 78 mg/dL Normal 74-106 [facility] Comment on above: Order Comment: Order Date: 07/22/24 Order Info: 785-08 - CMP Order Info: 3015-10 - TSH Order Info: - IBC Order Info: 2275-11 - MAXIM Performed By: #### L 503.6550, L506.1000, L503.6030, L501.9520, L100.0100, L500.4050 #### [facility] [address] [place], [address] Potassium [Moles/Vol] 3.7 mmol/L Normal 3.5-5.1 [facility] Comment on above: Order Comment: Order Date: 07/22/24 Order Info: 785-08 - CMP Order Info: 3015-10 - TSH Order Info: - IB Order Info: 2275-11 - MAXIM Performed By: #### L 503.6550, L506.1000, L503.6030, L501.9520, L100.0100, L500.4050 #### [facility] [address] [place], [address] Sodium [Moles/Vol] 136 mmol/L Normal 136-145 [facility] Comment on above: Order Comment: Order Date: 07/22/24 Order Info: 785-08 - CMP Order Info: 3015-10 - TSH Order Info: 83188-1 - IBC Order Info: 2275-11 - MAXIM Performed By: #### L 503.6550, L506.1000, L503.6030, L501.9520, L100.0100, L500.4050 #### [facility] [address] [place], [address] T PROT 6.7 g/dL Normal 6.4-8.2 [facility] Comment on above: Order Comment: Order Date: 07/22/24 Order Info: 785-08 - CMP Order Info: 3015-10 - TSH Order Info: 64719-0 - IBC Order Info: 2275-11 - MAXIM Performed By: #### L 503.6550, L506.1000, L503.6030, L501.9520, L100.0100, L500.4050 #### [facility] [address] [place], [address] Urea nitrogen [Mass/Vol] 9 mg/dL Normal 7-18 [facility] Comment on above: Order Comment: Order Date: 07/22/24 Order Info: 07-1 - CMP Order Info: 3 - TSH Order Info: 20176-0 - IBC Order Info: 2275-11 - MAXIM Performed By: #### L 503.6550, L506.1000, L503.6030, L501.9520, L100.0100, L500.4050 #### [facility] [address] [place], [address] Ferritinon 07-22-2024 Ferritin [Mass/Vol] 17 ng/mL Normal 8-[address] [facility] Comment on above: Order Comment: Order Date: 07/22/24Order Info: 785-08 - CMPOrder Info: 3015-10 - TSHOrder Info: 16929-5 - IBCOrder Info: 2275-11 - MAXIM Performed By: #### L 503.6550, L506.1000, L503.6030, L501.9520, L100.0100, L500.4050 ####[facility] [address] [place], [address] Iron+Iron Binding Capacityon 07-22-2024 Iron [Mass/Vol] 36 ug/dL Low 50-170 [facility] Comment on above: Order Comment: Order Date: 07/22/24 Order Info: 07-1 - CMP Order Info: 3 - TSH Order Info: 28086-7 - IBC Order Info: 2275-11 - MAXIM Performed By: #### L 503.6550, L506.1000, L503.6030, L501.9520, L100.0100, L500.4050 #### [facility] [address] [place], [address] IRON SATURATION 12.7 Low 15.0-55.0 [facility] Comment on above: Order Comment: Order Date: 07/22/24 Order Info: 0786- - CMP Order Info: 3 - TSH Order Info: 63050-5 - IB Order Info: 2275-11 - MAXIM Performed By: #### L 503.6550, L506.1000, L503.6030, L501.9520, L100.0100, L500.4050 #### [facility] [address] [place], [address] TIBC 284 ug/dL Normal 250-450 [facility] Comment on above: Order Comment: Order Date: 07/22/24 Order Info: 785-08 - CMP Order Info: 3 - TSH Order Info: 09525-9 - IB Order Info: 2275-11 - MAXIM Performed By: #### L 503.6550, L506.1000, L503.6030, L501.9520, L100.0100, L500.4050 #### [facility] [address] [place], [address] Thyroid Stim Hormone (TSH)on 07-22-2024 TSH 4.140 uIU/mL High 0.358-3.740 [facility] Comment on above: Order Comment: Order Date: 07/22/24 Order Info: 0786 - CMP Order Info: 3 - TSH Order Info: 08908-0 - IB Order Info: 2275-11 - MAXIM Performed By: #### L 503.6550, L506.1000, L503.6030, L501.9520, L100.0100, L500.4050 #### [facility] [address] [place], [address] Vitamin D,25 Hydroxyon 07-22 Vitamin D 25-OH 4.6 ng/mL Normal [facility] Comment on above: Order Comment: Order Date: 07/22/24 Order Info: 76327-1 - VITD25 Result Comment: Annetta min D 25(OH) Status Range Deficiency <20 ng/mL (50nmol/L) Insufficiency 20 - 30 ng/mL (50 - 75 nmol/L) Sufficiency 30 - 100 ng/mL (75 - 250 nmol/L) Toxicity >100 ng/mL (>250 nmol/L) Performed By: #### L 503.6550, L506.1000, L503.6030, L501.9520, L100.0100, L500.4050 #### [facility] [address] [place], [address] Office Visiton 09-23-2023 Follow-up visit [id number] Shannon Dunn 1985 F Date Provider Department Center 09/23/2023 MICHAEL BECERRA [facility] [place] Family History Problem Relation Age of Onset No Known Problems Mother No Known Problems Father Family Status - Relation Status Age at Mother Alive Father Alive Brother Alive Paternal Grandfather Maternal Grandmother Alive Maternal Grandfather Paternal Grandmother Level of Service:77787 LA OFFICE/OUTPATIENT ESTABLISHED LOW MDM 20 MIN Reason for Visit and Comments: Med Refill [602690] Normal [facility] Progress Noteon 09-23-2023 Progress Note - Chronic/stable. - Continue Lamictal and Celexa. - F[place] [facility] Normal [facility] Progress Note [facility] MEDICAL [facility] [address] [facility] [address] [facility] [address] Dept: [phone] Dept Reason for Visit: Med Refill Assessment and Plan 1. Adjustment reaction with anxiety and depression Assessment & Plan: - Chronic/stable. - Continue Lamictal and Celexa. - F/[place] in [place] [facility] Orders: - lamoTRIgine (LaMICtal) 200 MG tablet; Take 1 tablet (200 mg) by mouth daily., Starting Tu09/23/2023, Normal Follow up in about 6 months (around 03/23/2024) for CPE w/ PAP. Subjective Depression Visit Type: follow-up Patient is not experiencing: depressed mood, excessive worry, irritability, nervousness/anxiety, panic, suicidal ideas and thoughts of . Frequency of symptoms: occasionally Severity: moderate Sleep quality: fair Nighttime awakenings: occasional Compliance with medications: 76-100% Review of Systems Constitutional: Negative for irritability. Psychiatric/Behavioral : Positive for depression and dysphoric mood. Negative for suicidal ideas. The patient is not nervous/anxious. Allergies Allergen Reactions Cefadroxil Hives and Itching Duricef * Outpatient Medications Prior to Visit Medication Sig Dispense Refill citalopram (CeleXA) 20 MG tablet Take 1 tablet (20 mg) by mouth daily. 90 tablet 3 diphenhydrAMINE (BENADryl) 25 MG capsule Take 25 mg by mouth. ibuprofen 200 MG tablet Take 200 mg by mouth every 6 hours as needed. magnesium oxide (Mag-Ox) 400 mg tablet 400 mg as needed. lamoTRIgine (LaMICtal) 200 MG tablet TAKE 1 TABLET BY MOUTH DAILY 90 tablet 3 No facility-administered medications prior to visit. History reviewed. No pertinent past medical history. Social History Tobacco Use Smoking status: Former Packs/day: .5 Types: Cigarettes Smokeless tobacco: Never Substance Use Topics Alcohol use: Never Past Surgical History: Procedure Laterality Date NOSE SURGERY 2003 Family History Problem Relation Name Age of Onset No Known Problems Mother No Known Problems Father Objective BP 113/73 Pulse 91 Ht 5' 3 (1.6 m) Wt 119 lb (54 kg) SpO2 99% BMI 21.08 kg/m? Physical Exam Vitals and nursing note reviewed. Constitutional: Appearance: Normal appearance. Cardiovascular: Rate and Rhythm: Normal rate and regular rhythm. Heart sounds: Normal heart sounds. Pulmonary: Effort: Pulmonary effort is normal. Breath sounds: Normal breath sounds. Neurological: Mental Status: She is alert. Psychiatric: Mood and Affect: Mood normal. Behavior: Behavior normal. Thought Content: Thought content normal. Judgment: Judgment normal. Data Reviewed and Summarized Labs: Imaging/Testing: Michael Hernandez PA-C [facility] 36on 09-22-2023 36 Patient scheduled 09/23/23 [facility] 36on 09-19-2023 36 Lmom asking pt to ca ll back to schedule for Rx refill, or to schedule through mychart [facility] 36on 09-18-2023 36 Pt needs an appt for physical Pls call to schedule [facility] GABAPENTIN,URINEon 3 GABAPENTIN,URINE <5.0 Normal [facility] Comment on above: Result Comment: INTE RPRETIVE INFORMATION: Gabapentin, Urine Positive cutoff: 5.0 ug/mL For medical purposes only; not valid for forensic use. The absence of expected drug(s) and/or drug metabolite(s) may indicate non-compliance, inappropriate timing of specimen collection relative to drug administration, poor drug absorption, diluted/adulterated urine, or limitations of testing. The concentration value must be greater than or equal to the cutoff to be reported as a quantitative result. Interpretive questions should be directed to the laboratory. This test was developed and its performance characteristics determined by [email or web address]. It has not been cleared or approved by the [place] Food and Drug Administration. This test was performed in a CLIA certified laboratory and is intended for clinical purposes. Performed By: [email or web address] [address] [place] [address] [employer] Administrator: Prashanth Alfonso MD, PhD Performed By: #### G ABAU #### [facility] [address] [place] [address] T-SPOT TBon 01-22-2023 NIL[NEG]CONTROL SPOT COUNT Passed Normal [facility] Comment on above: Performed By: #### T SPOT #### [facility] [address] [place] [address] PANEL A SPOT COUNT 0 [facility] Comment on above: Performed By: #### T SPOT #### [facility] [address] [place] [address] PANEL B SPOT COUNT 1 Normal [facility] Comment on above: Performed By: #### T SPOT #### [facility] [address] [place] [address] POS CONTROL SPOT COUNT Passed Normal [facility] Comment on above: Performed By: #### T SPOT #### [facility] [address] [place] [address] T-SPOT.TB INTERP Negative Normal Normal Valu e: Negative [facility] Comment on above: Result Comment: A ne gative test result does not exclude the possibility of exposure to or infection with Mycobacterium tuberculosis (M. tuberculosis). Patients with recent exposure to TB infected individuals exhibiting a negative T-SPOT.TB result should be considered for retesting within 6 weeks or if other relevant clinical symptoms indicate. Results from T-SPOT.TB testing must be used in conjunction with each individual's epidemiological history, current medical status, and results of other diagnostic evaluations. The T-SPOT.TB test is qualitative and results are reported as positive, borderline or negative, given that the test controls perform as expected. In line with the Centers for Disease Control and Prevention's 2010 recommendation to report quantitative measurements alongside the qualitative result, the laboratory provides spot counts for informational purposes only. The T-SPOT.TB test should not be interpreted as a quantitative test. Performed By: #### T SPOT #### [facility] [address] [place] [address] BUPRENORPHINE SCREEN TO [facility] IR,URINEon 01-21-2023 BUPRENORPHINE SCREEN,INTERP. See Note Normal [facility] Comment on above: Result Comment: INTE RPRETIVE INFORMATION: The absence of expected drug(s) and/or drug metabolite(s) may indicate non-compliance, inappropriate timing of specimen collection relative to drug administration, poor drug absorption, diluted/adulterated urine, or limitations of testing. The concentration at which the screening test can detect a drug or metabolite varies. Specimens for which drugs or drug classes are detected by the screen are reflexed to a second, more specific technology (GC/MS and/or LC-MS/MS). The concentration value must be greater than or equal to the cutoff to be reported as positive. Interpretive questions should be directed to the laboratory. For medical purposes only; not valid for forensic use. Performed By: [email or web address] [address] [place] [address] [employer] Administrator: Prashanth Alfonso MD, PhD Performed By: #### B UPRS #### [facility] [address] [place] [address] BUPRENORPHINE SCREEN,URINE Negative Normal Cutoff 5 [facility] Comment on above: Performed By: #### B UPRS #### [facility] [address] [place] [address] ALCOHOLon 01-20-2023 Ethanol [Mass/Vol] mg/dL [facility] Comment on above: Result Comment: FOR MEDICAL USE ONLY. . REF VALUES <10 Performed By: #### A LC #### [facility] [address] [place] [address] CBC AND DIFFERENTIALon 01-20 % AUTOMATED IMMATURE GRAN 0.2 % Normal 0.0 - 0.9 [facility] Comment on above: Result Comment: Hannah ture Granulocyte Count (IG) includes promyelocytes, myelocytes and metamyelocytes but does not include bands. Percent differential counts (%) should be interpreted in the context of the absolute cell counts (cells/L). Performed By: #### C BCDF #### [address] [address] Basophils (Bld) [#/Vol] 0.06 10*3/uL Normal 0.00 - 0.10 [facility] Comment on above: Performed By: #### C BCDF #### [address] [address] Basophils/100 WBC (Bld) 1.2 % Normal 0.0 - 2.0 [facility] Comment on above: Performed By: #### C BCDF #### [place] [address] Eosinophils (Bld) [#/Vol] 0.05 10*3/uL Normal 0.00 - 0.70 [facility] Comment on above: Performed By: #### C BCDF #### [place] [address] Eosinophils/100 WBC (Bld) 1.0 % Normal 0.0 - 6.0 [facility] Comment on above: Performed By: #### C BCDF #### [place] [address] Erythrocyte distribution width (RBC) [Ratio] 12.0 % Normal 11.5 - 14.5 [facility] Comment on above: Performed By: #### C BCDF #### [place] [id number] Hematocrit (Bld) [Volume fraction] 41.4 % Normal 36.0 - 46.0 [facility] Comment on above: Performed By: #### C BCDF #### [address] [address] Hemoglobin (Bld) [Mass/Vol] 13.7 g/dL Normal 12.0 - 16.0 [facility] Comment on above: Performed By: #### C BCDF #### [address] [address] Lymphocytes (Bld) [#/Vol] 1.94 10*3/uL Normal 1.20 - 4.80 [facility] Comment on above: Performed By: #### C BCDF #### [address] [address] Lymphocytes/100 WBC (Bld) 39.8 % Normal 13.0 - 44.0 [facility] Comment on above: Performed By: #### C BCDF #### [address] [address] MCHC (RBC) [Mass/Vol] 33.1 g/dL Normal 32.0 - 36.0 [facility] Comment on above: Performed By: #### C BCDF #### [address] [address] MCV (RBC) [Entitic vol] 90 fL Normal 80 - 100 [facility] Comment on above: Performed By: #### C BCDF #### [address] [address] Monocytes (Bld) [#/Vol] 0.33 10*3/uL Normal 0.10 - 1.00 [facility] Comment on above: Performed By: #### C BCDF #### [address] [address] Monocytes/100 WBC (Bld) 6.8 % Normal 2.0 - 10.0 [facility] Comment on above: Performed By: #### C BCDF #### [address] [address] Neutrophils (Bld) [#/Vol] 2.49 10*3/uL Normal 1.20 - 7.70 [facility] Comment on above: Performed By: #### C BCDF #### [address] [address] Neutrophils/100 WBC (Bld) 51.0 % Normal 40.0 - 80.0 [facility] Comment on above: Performed By: #### C BCDF #### [place] [address] Platelets (Bld) [#/Vol] 273 10*3/uL Normal 150 - 450 [facility] Comment on above: Performed By: #### C BCDF #### [place] [address] RBC 4.60 x10E12/L Normal 4.00 - 5.20 [facility] Comment on above: Performed By: #### C BCDF #### [place] [address] WBC (Bld) [#/Vol] 4.9 10*3/uL Normal 4.4 - 11.3 [facility] Comment on above: Performed By: #### C BCDF #### [place] [address] COMPREHENSIVE PANELon 2022 Albumin [Mass/Vol] 4.3 g/dL Normal 3.4 - 5.0 [facility] Comment on above: Performed By: #### C MP #### [place] [address] ALP [Catalytic activity/Vol] 49 U/L Normal 33 - 110 [facility] Comment on above: Performed By: #### C MP #### [place] [address] ALT [Catalytic activity/Vol] 26 U/L Normal 7 - 45 [facility] Comment on above: Result Comment: Kayla ents treated with Sulfasalazine may generate falsely decreased results for ALT. Performed By: #### C MP #### [place] [address] Anion gap [Moles/Vol] 11 mmol/L Normal 10 - 20 [facility] Comment on above: Performed By: #### C MP #### [place] [address] AST [Catalytic activity/Vol] 21 U/L Normal 9 - 39 [facility] Comment on above: Performed By: #### C MP #### [address] [address] Bilirubin [Mass/Vol] 0.5 mg/dL Normal 0.0 - 1.[address] [facility] Comment on above: Performed By: #### C MP #### [address] [address] Calcium [Mass/Vol] 8.9 mg/dL Normal 8.6 - 10.3 [facility] Comment on above: Performed By: #### C MP #### [address] [address] Chloride [Moles/Vol] 106 mmol/L Normal 98 - 107 [facility] Comment on above: Performed By: #### C MP #### [address] [address] Creatinine [Mass/Vol] 0.70 mg/dL Normal 0.50 - 1.05 [facility] Comment on above: Performed By: #### C MP #### [address] [address] eGFR FEMALE >90 Normal >90 [facility] Comment on above: Result Comment: CALC ULATIONS OF ESTIMATED GFR ARE PERFORMED USING THE 2020 CKD-EPI STUDY REFIT EQUATION WITHOUT THE RACE VARIABLE FOR THE IDMS-TRACEABLE CREATININE METHODS. https://jasn.asnjournals.org/content/early//ASN.5605216 988 Performed By: #### C MP #### [address] [address] Glucose [Mass/Vol] 89 mg/dL Normal 74 - 99 [facility] Comment on above: Performed By: #### C MP #### [address] [address] HCO3 (Bld) [Moles/Vol] 26 mmol/L Normal 21 - 32 [facility] Comment on above: Performed By: #### C MP #### [address] [address] Potassium [Moles/Vol] 3.8 mmol/L Normal 3.5 - 5.3 [facility] Comment on above: Performed By: #### C MP #### [address] [address] Protein [Mass/Vol] 6.8 g/dL Normal 6.4 - 8.2 [facility] Comment on above: Performed By: #### C MP #### [address] [address] Sodium [Moles/Vol] 139 mmol/L Normal 136 - 145 [facility] Comment on above: Performed By: #### C MP #### [address] [address] Urea nitrogen [Mass/Vol] 7 mg/dL Normal 6 - 23 [facility] Comment on above: Performed By: #### C MP #### [address] [address] HEPATITIS PANEL,ACUTE (HCFA) on 01-20-2023 HEPATITIS A AB-IGM Non-Reactive Normal NONREACTIVE [facility] Comment on above: Result Comment: Biot in interference may cause falsely decreased results. Patients taking a Biotin dose of up to 5 mg/day should refrain from taking Biotin for 24 hours before sample collection. Providers may contact their local laboratory for further information. Performed By: #### H EPA2 #### [facility] [address] [place] [address] HEPATITIS B CORE AB,IGM Non-Reactive Normal NONREACTIVE [facility] Comment on above: Result Comment: Resu lts from patients taking biotin supplements or receiving high-dose biotin therapy should be interpreted with caution due to possible interference with this test. Providers may contact their local laboratory for further information. Performed By: #### H EPA2 #### [facility] [address] [place] [address] HEPATITIS C AB Non-Reactive Normal NONREACTIVE [facility] Comment on above: Result Comment: Resu lts from patients taking biotin supplements or receiving high-dose biotin therapy should be interpreted with caution due to possible interference with this test. Providers may contact their local laboratory for further information. Performed By: #### H EPA2 #### [facility] [address] [place] [id number] HEP.B SURFACE AG Non-Reactive Normal NONREACTIVE [facility] Comment on above: Result Comment: Biot in interference may cause falsely decreased results. Patients taking a Biotin dose of up to 5 mg/day should refrain from taking Biotin for 24 hours before sample collection. Providers may contact their local laboratory for further information. Performed By: #### H EPA2 #### [facility] [address] [place] [id number] HIV 1/2 ANTIGEN/ANTIBODY SCR EEN WITH REFLEX TO CONFIRMATIONon 01-20-2023 HIV 1/2 AG/AB SCREEN Non-Reactive Normal NONREACTIVE [facility] Comment on above: Result Comment: HIV Ag/Ab screen is performed using the Siemens AMKAI HIV Ag/Ab Combo assay which detects the presence of HIV p24 antigen as well as antibodies to HIV-1 (Group M and O) and HIV-2. . No laboratory evidence of HIV infection. If acute HIV infection is suspected, consider testing for HIV RNA by PCR (viral load). Performed By: #### H IV #### [facility] [address] [place] [id number] SYPHILIS SCREENING WITH REFL EXon 01-20-2023 SYPHILIS TOTAL AB Non-Reactive Normal NONREACTIVE [facility] Comment on above: Result Comment: No s erologic evidence of syphilis infection. If recent exposure is suspected, repeat syphilis testing is recommended in 2 to 4 weeks. Performed By: #### S YPHR #### [facility] [address] [place] [id number] Lab Specimen Source Normal [facility] Comment on above: Performed By: #### S YPHR #### [facility] [address] [place] [address] Performed By: #### H IV #### [facility] [address] [place] [id number] Performed By: #### H EPA2 #### [facility] [address] [place] [id number] DRUG SCREEN,URINEon 01-18-20 23 AMPHETAMINE SCREEN,U Negative Normal NEGATIVE [facility] Comment on above: Result Comment: CUTO FF LEVEL: 500 NG/ML Cross-reactivity has been reported with high concentrations of the following drugs: buproprion, chloroquine, chlorpromazine, ephedrine, mephentermine, fenfluramine, phentermine, phenylpropanolamine, pseudoephedrine, and propranolol. Performed By: #### D RUG3 #### [address] [address] BARBITURATES SCREEN,U Negative Normal NEGATIVE [facility] Comment on above: Result Comment: CUTO FF LEVEL: 200 NG/ML Performed By: #### D RUG3 #### [address] [address] BENZODIAZEPINES SCREEN,U Positive Abnormal NEGATIVE [facility] Comment on above: Result Comment: CUTO FF LEVEL: 200 NG/ML Performed By: #### D RUG3 #### [address] [address] CANNABINOIDS SCREEN,U Negative Normal NEGATIVE [facility] Comment on above: Result Comment: CUTO FF LEVEL: 50 NG/ML Performed By: #### D RUG3 #### [address] [address] COCAINE METABOLITE SCREEN,U Negative Normal NEGATIVE [facility] Comment on above: Result Comment: CUTO FF LEVEL: 150 NG/ML Performed By: #### D RUG3 #### [address] [address] DRUG SCREEN COMMENT SEE BELOW Normal [facility] Comment on above: Result Comment: Drug screen results are presumptive and should not be used to assess compliance with prescribed medication. Contact the performing [facility] laboratory to add-on definitive confirmatory testing if clinically indicated. . Toxicology screening results are reported qualitatively. The concentration must be greater than or equal to the cutoff to be reported as positive. The concentration at which the screening test can detect an individual drug or metabolite varies. The absence of expected drug(s) and/or drug metabolite(s) may indicate non-compliance, inappropriate timing of specimen collection relative to drug administration, poor drug absorption, diluted/adulterated urine, or limitations of testing. For medical purposes only; not valid for forensic use. . Interpretive questions should be directed to the laboratory medical directors. Performed By: #### D RUG3 #### [place] [address] FENTANYL SCREEN,URINE Negative Normal NEGATIVE [facility] Comment on above: Result Comment: CUTO FF LEVEL: 5 NG/ML Performed By: #### D RUG3 #### [place] [address] METHADONE SCREEN,U Negative Normal NEGATIVE [facility] Comment on above: Result Comment: CUTO FF LEVEL: 150 NG/ML The metabolite R-ijabo-jzakcyyyrkuzjw (LAAM) is not detected by this method in concentrations that would be found in the urine of patients on LAAM therapy. Performed By: #### D RUG3 #### [place] [address] OPIATES SCREEN,U Negative Normal NEGATIVE [facility] Comment on above: Result Comment: CUTO FF LEVEL: 300 NG/ML The opiate screen does not detect fentanyl, meperidine, or tramadol. Oxycodone is not consistently detected (refer to Oxycodone Screen, Urine result). Performed By: #### D RUG3 #### [place] [address] OXYCODONE SCREEN,U Negative Normal NEGATIVE [facility] Comment on above: Result Comment: CUTO FF LEVEL: 100 NG/ML This test will accurately detect both oxycodone and oxymorphone. Performed By: #### D RUG3 #### [place] [address] PCP SCREEN,U Negative Normal NEGATIVE [place] Comment on above: Result Comment: CUTO FF LEVEL: 25 NG/ML Cross-reactivity has been reported with dextromethorphan. Performed By: #### D RUG3 #### [place] [id number] [place] [address] CR Hand Complete 3+ Views Le f[place] 01-03-2020 CR Hand Complete 3+ Views Left Patient Name: SHANNON DUNN Diagnostic Radiology Exam Date/Time 01/03/2020 15:54:15 EDT Exam CR Hand Complete 3+ Views Left Ordering Physician [id number] BRUNSON Accession Number [id number] CPT4 Codes 32593 () Reason For Exam pain and swelling Report LEFT HAND CLINICAL INDICATION: Pain and swelling AP, lateral, and oblique plain film views of the left hand were obtained. COMPARISON: None FINDINGS: No fracture or dislocation of the left hand is identified. There is no abnormal soft tissue swelling or radiopaque foreign body seen. IMPRESSION: Negative plain film examination of the left hand. Report Dictated on Final Dictated: 01/03/2020 6:29 pm Dictating Physician: MD FRANCOIS JONATHAN R Signed Date and Time: 01/03/2020 6:30 pm Signed by: MD FRANCOIS JONATHAN R Transcribed Date and Time: 01/03/2020 6:29 Normal [facility] XR HAND LEFT (MIN 3 VIEWS)on 01-03-2020 Patient Name: SHANNON DUNN ---Diagnostic Radiology--- Exam Date/Time 01/03/2020 15:54:15 EDT Exam CR Hand Complete 3+ Views Left Ordering Physician [id number] BRUNSON Accession Number [id number] CPT4 Codes 01666 () Reason For Exam pain and swelling Report LEFT HAND CLINICAL INDICATION: Pain and swelling AP, lateral, and oblique plain film views of the left hand were obtained. COMPARISON: None FINDINGS: No fracture or dislocation of the left hand is identified. There is no abnormal soft tissue swelling or radiopaque foreign body seen. IMPRESSION: Negative plain film examination of the left hand. Report Dictated on --- Final --- Dictated: 01/03/2020 6:29 pm Dictating Physician: MD FRANCOIS JONATHAN R Signed Date and Time: 01/03/2020 6:30 pm Signed by: MD FRANCOIS JONATHAN R Transcribed Date and Time: 01/03/2020 6:29 [facility] [place], [place] Junior, [facility] Incoming Radiology Results From [facility] - 01/03/2020 6:31 PM EDT Patient Name: SHANNON DUNN ---Diagnostic Radiology--- Exam Date/Time 01/03/2020 15:54:15 EDT Exam CR Hand Complete 3+ Views Left Ordering Physician [id number] BOB THURMAN Accession Number [id number] CPT4 Codes 65857 () Reason For Exam pain and swelling Report LEFT HAND CLINICAL INDICATION: Pain and swelling AP, lateral, and oblique plain film views of the left hand were obtained. COMPARISON: None FINDINGS: No fracture or dislocation of the left hand is identified. There is no abnormal soft tissue swelling or radiopaque foreign body seen. IMPRESSION: Negative plain film examination of the left hand. Report Dictated on --- Final --- Dictated: 01/03/2020 6:29 pm Dictating Physician: MD FRANCOIS JONATHAN R Signed Date and Time: 01/03/2020 6:30 pm Signed by: MD FRANCOIS JONATHAN R Transcribed Date and Time: 01/03/2020 6:29 [facility] [place], [place] Vital Signs Date Time Vital Sign Value Performing Clinician Sandra alexandre 12-10-2024 12:53-0400 Body height 160 cm Neptali Murray MD Work Phone: [facility] 12-10-2024 12:53-0400 Body mass index (BMI) [Ratio] 18.42 kg/m2 Neptali Murray MD Work Phone: [facility] 12-10-2024 12:53-0400 Body weight 47.17 kg Neptali Murray MD Work Phone: [facility] 12-10-2024 12:53-0400 Respiratory rate 20 /min Neptali Murray MD Work Phone: [facility] 09-17-2024 10:39-0500 Body height 160 cm Neptali Murray MD Work Phone: [facility] 09-17-2024 10:39-0500 Body mass index (BMI) [Ratio] 18.42 kg/m2 Neptali Murray MD Work Phone: [facility] 09-17-2024 10:39-0500 Body temperature 98.29 [degF] Neptali Murray MD Work Phone: [facility] 09-17-2024 10:39-0500 Body weight 47.17 kg Neptali Murray MD Work Phone: [facility] 09-23-2023 08:39-0500 Body height 160 cm Michael Hernandez PA-C Work Phone: [facility] 09-23-2023 08:39-0500 Body mass index (BMI) [Ratio] 21.08 kg/m2 Michael Hernandez PA-C Work Phone: [facility] 09-23-2023 08:39-0500 Body weight 53.98 kg Michael Hernandez PA-C Work Phone: [employer] 09-23-2023 08:39-0500 Diastolic blood pressure 73 mm[Hg] Michael Hernandez PA-C Work Phone: [employer] 09-23-2023 08:39-0500 Heart rate 91 /min Michael Hernandez PA-C Work Phone: [employer] 09-23-2023 08:39-0500 SaO2% (BldA) [Mass fraction] 99 % Michael Hernandez PA-C Work Phone: [employer] 09-23-2023 08:39-0500 Systolic blood pressure 113 mm[Hg] Michael Hernandez PA-C Work Phone: [employer] 08-26-2022 10:17-0500 Body height 160 cm Latrice Horner MD Work Phone: [employer] 08-26-2022 10:17-0500 Body mass index (BMI) [Ratio] 22.25 kg/m2 Latrice Horner MD Work Phone: [employer] 08-26-2022 10:17-0500 Body temperature 97.9 [degF] Latrice Horner MD Work Phone: [employer] 08-26-2022 10:17-0500 Body weight 56.97 kg Latrice Horner MD Work Phone: [employer] 08-26-2022 10:17-0500 Diastolic blood pressure 74 mm[Hg] Latrice Horner MD Work Phone: [employer] 08-26-2022 10:17-0500 Heart rate 98 /min Latrice Horner MD Work Phone: [employer] 08-26-2022 10:17-0500 SaO2% (BldA) [Mass fraction] 99 % Latrice Horner MD Work Phone: [employer] [facility] 08-26-2022 10:17-0500 Systolic blood pressure 117 mm[Hg] Latrice Horner MD Work Phone: [facility] Encounters Encounter Date Encounter Type Care Provider Facility Start: 12-10-2024 End: 12-10-2024 Patient encounter procedure Neptali Murray MD Work Phone: [facility] Comment on above: Pain in left hand Start: 12-10-2024 End: 12-10-2024 ambulatory NEPTALI MURRAY Facility:[facility] Start: 11-01-2024 ambulatory NEPTALI MURRAY Fa cility:[facility] Start: 11-01-2024 End: 11-01-2024 Subsequent hospital visit by physician Mri Bath (1.5t/Lg Bore 70cm) Work Phone: [facility] Comment on above: Localized swelling, mass, or lump of left upper extremity [R22.32] Start: 10-07-2024 End: 10-07-2024 Orders Only Neptali Murray MD Work Phone: [facility] Comment on above: Mass of left hand (P rimary Dx); Localized swelling, mass, or lump of left upper extremity Start: 10-05-2024 End: 10-05-2024 ambulatory Neptali Murray MD Work Phone: [facility] Comment on above: Vein ultrasound resu lts Start: 09-24-2024 ambulatory Brent Olsburg Facility:[facility] Start: 09-24-2024 End: 09-24-2024 ambulatory Neptali Murray Facility:[facility] Start: 09-17-2024 End: 09-17-2024 Patient encounter procedure Neptali Murray MD Work Phone: [facility] Comment on above: Mass of left hand (P rimary Dx) Start: 09-17-2024 End: 09-17-2024 ambulatory NEPTALI MURRAY Facility:[facility] Start: 09-09-2024 End: 09-09-2024 Telephone encounter Neptali Murray MD Work Phone: [facility] Comment on above: Consult Start: 08-31-2024 End: 08-31-2024 ambulatory Shayla Kauffman Facility:[facility] Start: 08-31-2024 End: 08-31-2024 ambulatory Chalon Maico Facility:[facility] Start: 08-05-2024 End: 08-05-[facility] Start: 07-22-2024 End: 07-22-[facility] Start: 09-23-2023 End: 09-23-2023 ambulatory MICHAEL HERNANDEZ [facility] Start: 09-23-2023 End: 09-23-2023 Office outpatient visit 15 minutes Michael Hernandez PA-C Work Phone: [facility] Comment on above: Adjustment reaction with anxiety and depression Start: 09-18-2023 Refill Latrice huff MD Work Phone: [facility] Comment on above: Adjustment reaction with anxiety and depression Start: 01-20-2023 ambulatory Ms. Funez Ed morel Janell Facility:[id number] Start: 01-17-2023 ambulatory 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) Start: 01-03-2020 End: 01-03-2020 Subsequent hospital visit by physician Bob Dalton Work Phone: [facility] Comment on above: Hand pain, left; Thumb pain, left Procedures Date Procedure Procedure Detail Performing Clinician Start: 01-03-2020 Radex hand minimum 3 views Bob Dalton Work Phone: Plan of Treatment Date Care Activity Detail Author Start: 2044 RSV Immunization age d 60 or older (1 - 1-dose 60+ series) RSV Immunization aged 60 or older (1 - 1-dose 60+ series) [facility] Start: 01-31-2034 Zoster Vaccines (1 o f 2) Zoster Vaccines (1 of 2) [facility] Start: 04-04-2025 Influenza vaccination Influenz a Vaccine (Season Ended) [facility] Start: 12-22-2024 End: 12-22-2024 Patient encounter procedure 12/22/2024 1:00 PM EDT Office Visit [facility] [address] [phone] Jada Gerard DO [address] [phone] New Hospital Discharge F/up - Second opinion regarding hand pain with Dr. Gerard [facility] Comment on above: New Hospital Dischar ge F/up - Second opinion regarding hand pain with Dr. Gerard Start: 12-10-2024 End: 12-10-2024 Patient encounter procedure 12/10/2024 1:00 PM EDT Office Visit [facility] [address] [place] [address] Neptali Murray MD [address] [place] [address] EST - L HAND MASS - MRI F/U 11/01/24 -LG [facility] Comment on above: EST - L HAND MASS - MRI F/U 11/01/24 -LG Start: 09-17-2024 End: 09-17-2024 Patient encounter procedure 09/17/2024 11:00 AM EST Office Visit [facility] [address] [place] [address] Neptali Murray MD [address] [place] [address] L HAND/ARTERY PAIN REF BY VASCULAR [facility] Comment on above: L HAND/ARTERY PAIN R EF BY VASCULAR Start: 04-04-2024 Covid-19 Vaccine ( season) Covid-19 Vaccine ( season) [facility] Start: 04-04-2024 Influenza vaccination Influenza Vacc ine (#1) [facility] Start: 03-22-2024 End: 03-22-2024 Patient encounter procedure 03/22/2024 8:40 AM EDT Office Visit [facility] [facility] [address] [place] [phone] Michael Hernandez PA-C [facility] [place] [address] [facility] Start: 2024 Screening for malign ant neoplasm of breast Mammogram Screening [facility] Start: 09-23-2023 End: 09-23-2023 Patient encounter procedure 09/23/2023 8:40 AM EST Office Visit [facility] [address] [facility] [address] [place] [phone] Michael Hernandez PA-C [facility] [address] [address] [facility] Start: 04-04-2023 Influenza vaccination Influenza Vacc ine (#1) [facility] Start: 04-04-2022 Influenza vaccination Influenza Vacc ine (#1) [facility] Start: 12-10-2020 Screening for malign ant neoplasm of cervix Cervical cancer screen [place], [place] Start: 04-04-2020 Influenza vaccination Flu vacc ine (Season Ended) [place] Start: 01-31-2014 Screening for malign ant neoplasm of cervix [facility] Start: 01-31-2005 Screening for malign ant neoplasm of cervix [facility] Start: 01-31-2003 DTaP/Tdap/Td vaccine (1 - Tdap) DTaP/Tdap/Td vaccine (1 - Tdap) [place] Start: 01-31-2003 DTaP/Tdap/Td Vaccine s (1 - Tdap) DTaP/Tdap/Td Vaccines (1 - Tdap) [facility] Start: 01-31-2003 Hepatitis B Vaccine (1 of 3 - 19+ 3-dose series) Hepatitis B Vaccine (1 of 3 - 19+ 3-dose series) [facility] Start: 01-31-2003 Urine microalbumin profile DTaP,Tdap,Td Vaccine (1 - Tdap) [facility] Start: 01-31-2002 Anxiety Screening Anxiety Screening [facility] Start: 01-31-2002 Depression Screening Depression Scre ening [facility] Start: 01-31-2002 Hepatitis C screening Hepatitis C In reening [facility] Start: 01-31-2002 HIV screening HIV Screening [facility] Start: 01-31-1999 HIV screening HIV screen [place], [place] Start: 1996 Depression Screening Depression Scre ening [facility] Start: 01-31-1985 MMR Vaccines (1 of 1 - Standard series) MMR Vaccines (1 of 1 - Standard series) [facility] Start: 01-31-1985 Varicella vaccination Varicell a Vaccines (1 of 2 - 2-dose childhood series) [facility] Start: 01-31-1985 Varicella vaccine (1 of 2 - 2-dose childhood series) Varicella vaccine (1 of 2 - 2-dose childhood series) [place], [place] Start: 1984 COVID-19 Vaccine (#1) COVID-19 Vacci ne (#1) [facility] Start: 1984 Hepatitis B Vaccines (1 of 3 - 3-dose series) Hepatitis B Vaccines (1 of 3 - 3-dose series) [facility] Start: 1984 HIV screening HIV Screening [facility] End: 11-06-2025 MR Hand - left WO contrast MRI HAND WO IVCON LEFT Radiology Routine Localized swelling, mass, or lump of left upper extremity 1 Occurrences starting 10/07/2024 until 11/06/2025 [facility] Work Phone: Comment on above: 1 Occurrences starti ng 10/07/2024 until 11/06/2025 End: 11-01-2024 MR Hand - left WO contrast [facility] Work Phone: Comment on above: 1 Occurrences starti ng 11/01/2024 until 11/01/2024 XR Hand - left PA an d Lateral and Oblique XR HAND GENERAL 3V PA/LAT/OBL LEFT Radiology Routine Mass of left hand Ordered: 09/18/2024 [facility] Work Phone: Comment on above: Ordered: 09/18/2024 Payers Date Payer Category Payer Self-pay 2023 Medicaid [id number] 2023 Medicaid [id number] 1984 Unknown [id number] 1984 Unknown [id number] 2.16.8 [id number] Unknown [id number] 2.16.8 [id number] Unknown [id number] 2.16.8 [id number] Unknown [id number] 2.16.8 [id number] Unknown [id number] 2.16.8 [id number] Unknown [id number] 2.16.8 [id number] Unknown [id number] 2.16.8 [id number] Social History Date Type Detail Facility Start: 01-03-2020 End: 09-17-2024 Tobacco smoking status NHIS Former smoker [place], [place] History of tobacco use Cigarette Smoker M [place] Start: 01-03-2020 End: 09-17-2024 Cigarettes smoked current (pack per day) - Reported [place] Start: 01-03-2020 Alcohol intake 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 Patient declined [facility] Are you now , , , , never or living with a partner? [facility] How often to you hav e a drink containing alcohol? Never [facility] How hard is it for y ou to pay for the very basics like food, housing, medical care, and heating Not very hard [facility] Do you feel stress - tense, restless, nervous, or anxious, or unable to sleep at night because your mind is troubled all the time - these days [OSQ] Only a little [facility] (I/We) worried wheth er (my/our) food would run out before (I/we) got money to buy more. Never true [facility] In the past 12 month s, was there a time when you were not able to pay the mortgage or rent on time? No [facility] Start: 08-26-2022 History SDOH Alcohol Frequency 1 [facility] Start: 08-26-2022 History SDOH Alcohol Std Drinks 0 [facility] Start: 08-26-2022 History SDOH Social Connections Phone 2 [facility] Start: 08-26-2022 History SDOH Social Connections Christianity 98 [facility] Start: 08-26-2022 History SDOH Social Connections Living 5 [facility] Start: 08-26-2022 History SDOH Physica l Activity MPS 6 [facility] Start: 08-26-2022 History SDOH Financial 4 [facility] Start: 08-16-2022 End: 08-26-2022 Exposure to SARS-CoV-2 (event) Not sure [facility] Start: 12-04-2015 Tobacco smoking stat us [facility] Smokes tobacco daily [facility] Start: 09-17-2024 Tobacco use and exposure Smoke less tobacco non-user [facility] Start: 09-18-2024 End: 12-10-2024 Alcoholic beverage intake Ex-drinker (finding) [facility] Clinical Notes 08-26-2022 to 12-10-2024 Neptali Murray MD - 12/10/2024 4:02 PM Danyelle Cuevas, [facility] - 11/01/2024 5:15 PM Neptali Toussaint MD - 09/18/2024 11:55 AM Adrian Hermosillo [facility] - 09/17/2024 10:35 AM EST Note Date & Type Note Facility 12-10-2024 Note HNO ID: [id number] Author: NEPTALI MURRAY MD Service: ? Author Type: Physician Type: Progress Notes Filed: 12/10/2024 16:06 Note Text: Hand Clinic Follow-up Note Prior Hx: 2019 L thenar mass arose 09/24/24 U/S LUE-no DVT, reflux noted in superficial vein on palmar surface 11/06/24 MRI L hand-no obvious soft tissue mass Interval Hx: Mona is a 39-year-old female presenting for evaluation of a left thenar mass. Left Thenar Mass: - Persistent left thenar mass with no change in symptoms. - Describes a pressure pain rather than sharp or stabbing pain. - Aggravated by using the hand, particularly the thumb; worsens with activities such as playing guitar, video games, and floor exercises. - Experiences a pulling sensation at night, affecting sleep. - Notable swelling and pain when holding objects, such as washing dishes. - Avoids using the left hand due to discomfort. - Ultrasound on 09/24/2024 showed no DVT, but noted reflux in a superficial vein. - MRI on 11/06/2024 showed no obvious mass. Exam: - Musculoskeletal: - Left Hand: - Skin intact, able to make a full fist. - No tenderness over the CMC joint, radial styloid, or FCR tendon. - No triggering of the thumb. - No pain with resistive wrist flexion. - Prominent vein over the proximal portion of the thenar eminence, not present on the contralateral side. - Tenderness over the prominent vein on the thenar eminence. Imaging: Imaging: - (11/06/2024) MRI of the left hand: No obvious mass or uptake. - (09/24/2024) Ultrasound of the left hand: No evidence of deep venous thrombosis; mild reflux in the superficial vein. Assessment/Plan: (M79.642) Pain in left hand New and/or prior imaging was reviewed with the pt 1. Pain in left hand (M79.642) - Persistent pain and swelling in the left thenar region, exacerbated by hand use and thumb motion; described as a pressure pain with a pulling sensation at night. - Ultrasound on 09/24/2024 showed no DVT, but noted reflux in a superficial vein. MRI on 11/06/2024 showed no obvious mass. - Physical exam reveals intact skin, full fist formation, no tenderness over CMC, radial styloid, or FCR tendon. No triggering of the thumb. Prominent vein observed over the proximal portion of the thenar eminence, not present on the contralateral side. Tenderness noted upon palpation of the prominent vein. - Discussed potential surgical intervention to ligate and excise the prominent vein, but also considered referral to vascular surgery for further evaluation and potential alternative treatments such as coiling. - Patient agrees with the plan to consult vascular surgery. - Referral to vascular surgery initiated for further evaluation and management. I was very colin with the patient and explained that I have never seen a vein like this in the hand that causes pain with pressure, it is possible, but I cannot guarantee that this is her pain generator That being said on exam, the vein is definitely there and it is more prominent than the contralateral side I do want her to get a second opinion from vascular surgery before we do surgery on the hand ourselves If she does want surgery, at this point it has been 5 years and she has had multiple test, I do think it is reasonable to make a Verna incision over the thenar eminence and ligate the prominent veins, I did explain that this would give her a scar which also may be painful, and I told her that I cannot guarantee that this is going to solve her problem, I would only do the surgery if it was a last resort for her because she cannot get relief from anything else and with the expressed understanding that she knows this may not make her better Return to clinic after vascular Will continue to monitor patient for Pain in left hand, patient to schedule visit as per follow up discussed. Medical Decision Making: Problems: Moderate: 1+ chronic illnesses with change Data: Unique test result(s) reviewed: 2 Risk: Moderate: Moderate risk from testing/treatment Medical Decision Making Level: 4 - Moderate Neptali Murray MD Hand Surgery *The above reflects my independent exam and review. I saw and examined the patient myself personally. Parts of the HPI, ROS, exam, and impression/plan may have been copied from my previous clinical note and remain pertinent. Current changes have been made and documented today. Other parts or date were deleted if not relevant for today. Plan as outlined.* *This note was produced using speech recognition software and may contain errors related to that system including but not limited to punctuation, spelling, grammar, gender, and words or phrases that may be inappropriate.* *The patient consented to the use of [facility] software for draft documentation of the visit consistent with [facility]?s Notice of Privacy Practices.* [facility] 12-10-2024 History of Presen t illness Narrative Hand Clinic Follow-up Note Prior Hx: 2019 L thenar mass arose 09/24/24 U/S LUE-no DVT, reflux noted in superficial vein on palmar surface 11/06/24 MRI L hand-no obvious soft tissue mass Interval Hx: Mona is a 39-year-old female presenting for evaluation of a left thenar mass. Left Thenar Mass: - Persistent left thenar mass with no change in symptoms. - Describes a pressure pain rather than sharp or stabbing pain. - Aggravated by using the hand, particularly the thumb; worsens with activities such as playing guitar, video games, and floor exercises. - Experiences a pulling sensation at night, affecting sleep. - Notable swelling and pain when holding objects, such as washing dishes. - Avoids using the left hand due to discomfort. - Ultrasound on 09/24/2024 showed no DVT, but noted reflux in a superficial vein. - MRI on 11/06/2024 showed no obvious mass. Exam: - Musculoskeletal: - Left Hand: - Skin intact, able to make a full fist. - No tenderness over the CMC joint, radial styloid, or FCR tendon. - No triggering of the thumb. - No pain with resistive wrist flexion. - Prominent vein over the proximal portion of the thenar eminence, not present on the contralateral side. - Tenderness over the prominent vein on the thenar eminence. Imaging: Imaging: - (11/06/2024) MRI of the left hand: No obvious mass or uptake. - (09/24/2024) Ultrasound of the left hand: No evidence of deep venous thrombosis; mild reflux in the superficial vein. Assessment/Plan: (M79.642) Pain in left hand New and/or prior imaging was reviewed with the pt 1. Pain in left hand (M79.642) - Persistent pain and swelling in the left thenar region, exacerbated by hand use and thumb motion; described as a pressure pain with a pulling sensation at night. - Ultrasound on 09/24/2024 showed no DVT, but noted reflux in a superficial vein. MRI on 11/06/2024 showed no obvious mass. - Physical exam reveals intact skin, full fist formation, no tenderness over CMC, radial styloid, or FCR tendon. No triggering of the thumb. Prominent vein observed over the proximal portion of the thenar eminence, not present on the contralateral side. Tenderness noted upon palpation of the prominent vein. - Discussed potential surgical intervention to ligate and excise the prominent vein, but also considered referral to vascular surgery for further evaluation and potential alternative treatments such as coiling. - Patient agrees with the plan to consult vascular surgery. - Referral to vascular surgery initiated for further evaluation and management. I was very colin with the patient and explained that I have never seen a vein like this in the hand that causes pain with pressure, it is possible, but I cannot guarantee that this is her pain generator That being said on exam, the vein is definitely there and it is more prominent than the contralateral side I do want her to get a second opinion from vascular surgery before we do surgery on the hand ourselves If she does want surgery, at this point it has been 5 years and she has had multiple test, I do think it is reasonable to make a Verna incision over the thenar eminence and ligate the prominent veins, I did explain that this would give her a scar which also may be painful, and I told her that I cannot guarantee that this is going to solve her problem, I would only do the surgery if it was a last resort for her because she cannot get relief from anything else and with the expressed understanding that she knows this may not make her better Return to clinic after vascular Will continue to monitor patient for Pain in left hand, patient to schedule visit as per follow up discussed. Medical Decision Making: Problems: Moderate: 1+ chronic illnesses with change Data: Unique test result(s) reviewed: 2 Risk: Moderate: Moderate risk from testing/treatment Medical Decision Making Level: 4 - Moderate Neptali Murray MD Hand Surgery *The above reflects my independent exam and review. I saw and examined the patient myself personally. Parts of the HPI, ROS, exam, and impression/plan may have been copied from my previous clinical note and remain pertinent. Current changes have been made and documented today. Other parts or date were deleted if not relevant for today. Plan as outlined.* *This note was produced using speech recognition software and may contain errors related to that system including but not limited to punctuation, spelling, grammar, gender, and words or phrases that may be inappropriate.* *The patient consented to the use of [facility] software for draft documentation of the visit consistent with [facility] s Notice of Privacy Practices.* documented in this encounter [facility] 11-01-2024 History of Presen t illness Narrative Radiology Service Progress Note PATIENT NAME: Shannon Dunn DATE OF SERVICE: November 01, 2024 TIME: 5:25 PM PATIENT IDENTITY VERIFICATION COMPLETED USING TWO (2) IDENTIFIERS: Name and Date of confirmed by patient verbally. FALL SCREENING: Has the patient had 2 falls in the last year or 1 fall with injury or currently using an Ambulatory Assistive Device (Walker, Cane, Wheelchair, Crutches, etc.)? No PATIENT GENDER DATA: Assigned female at . status: : No status: NO. PATIENT RELEVANT IMPLANT DATA REVIEWED: Yes PATIENT PRESENTS WITH AN IMPLANTABLE OR ATTACHED ADMINISTRATIVE HEARING OFFICER: No RADIOLOGY DEPARTMENT: MR; Exam(s) Completed: Upper MSK: Hand, left PERIPHERAL IV DATA: Not applicable SIGNED BY: ROSEMARIE Bernal November 01, 2024 5:25 PM documented in this encounter [facility] 11-01-2024 Note HNO ID: [id number] Author: DANYELLE LOPEZ MRI Tech Service: ? Author Type: Technologist Type: Progress Notes Filed: 11/01/2024 17:25 Note Text: Radiology Service Progress Note PATIENT NAME: Shannon Dunn DATE OF SERVICE: November 01, 2024 TIME: 5:25 PM PATIENT IDENTITY VERIFICATION COMPLETED USING TWO (2) IDENTIFIERS: Name and Date of confirmed by patient verbally. FALL SCREENING: Has the patient had 2 falls in the last year or 1 fall with injury or currently using an Ambulatory Assistive Device (Walker, Cane, Wheelchair, Crutches, etc.)? No PATIENT GENDER DATA: Assigned female at . status: : No status: NO. PATIENT RELEVANT IMPLANT DATA REVIEWED: Yes PATIENT PRESENTS WITH AN IMPLANTABLE OR ATTACHED ADMINISTRATIVE HEARING OFFICER: No RADIOLOGY DEPARTMENT: MR; Exam(s) Completed: Upper MSK: Hand, left PERIPHERAL IV DATA: Not applicable SIGNED BY: ROSEMARIE Bernal November 01, 2024 5:25 PM [facility] 09-18-2024 Note HNO ID: [id number] Author: NEPTALI MURRAY MD Service: ? Author Type: Physician Type: Progress Notes Filed: 09/18/2024 11:59 Note Text: Hand Surgery New Pt Note HPI: 39-year-old female [id number]-[id number] not working No diabetes, no smoking She thinks that in 2019 this thenar mass arose and it has been worked up at [facility] Never had an MRI Never had an injury Initially did not cause any other pain Now she has a hard time doing some ADLs and playing the guitar and she gets some swelling and tightness it is hard to put pressure over this area No evidence of any other lumps or bumps in the body PMH: History reviewed. No pertinent past medical history. ALLERGIES Allergen Reactions Duracef [Cefadroxil] Unknown Social History Tobacco Use Smoking status: Former Types: Cigarettes Smokeless tobacco: Never Substance Use Topics Alcohol use: Not Currently Drug use: Never Review of Systems: 12 point review of systems was performed and found to be non-contributory Exam: Left hand Skin intact Full finger flexion/extension, FPL/EPL intact SILT m/r/u Fingers wwp It is hard to feel, but there seems to be a 2 x 1 cm mass over the ulnar aspect of the thenar eminence, it almost feels like a vein that is being rolled over, this is not present on the contralateral side though and can feel something, she is slightly tender to palpation when I push year Imaging: XR 3 views left hand No obvious bony pathology Assessment/Plan: (R22.32) Mass of left hand (primary encounter diagnosis) New and/or prior imaging was reviewed with the pt Unclear exactly what this is, it could just be a prominent vein, could be a clotted vein, she is scheduled for vein ultrasound at [place] and I think she should get this I told her that after she sends me these results, we can decide if this is something that needs a procedure or if I want to get an MRI to obtain more information Return to clinic after she gets the pain ultrasound Will continue to monitor patient for Mass of left hand (primary encounter diagnosis), patient to schedule visit as per follow up discussed. Medical Decision Making: Problems: Moderate: New problem with uncertain prognosis Data: Unique test(s) ordered: 1 Risk: Low: Low risk from testing/treatment Medical Decision Making Level: 3 - Low Neptali Murray MD Hand Surgery *The above reflects my independent exam and review. I saw and examined the patient myself personally. Parts of the HPI, ROS, exam, and impression/plan may have been copied from my previous clinical note and remain pertinent. Current changes have been made and documented today. Other parts or date were deleted if not relevant for today. Plan as outlined. *This note was produced using speech recognition software and may contain errors related to that system including but not limited to punctuation, spelling, grammar, gender, and words or phrases that may be inappropriate.* [facility] 09-18-2024 History of Presen t illness Narrative Hand Surgery New Pt Note HPI: 39-year-old female nsvkr-jeux-cumbcpsc not working No diabetes, no smoking She thinks that in 2019 this thenar mass arose and it has been worked up at [facility] Never had an MRI Never had an injury Initially did not cause any other pain Now she has a hard time doing some ADLs and playing the guitar and she gets some swelling and tightness it is hard to put pressure over this area No evidence of any other lumps or bumps in the body PMH: History reviewed. No pertinent past medical history. ALLERGIES Allergen Reactions Duracef [Cefadroxil] Unknown Social History Tobacco Use Smoking status: Former Types: Cigarettes Smokeless tobacco: Never Substance Use Topics Alcohol use: Not Currently Drug use: Never Review of Systems: 12 point review of systems was performed and found to be non-contributory Exam: Left hand Skin intact Full finger flexion/extension, FPL/EPL intact SILT m/r/u Fingers wwp It is hard to feel, but there seems to be a 2 x 1 cm mass over the ulnar aspect of the thenar eminence, it almost feels like a vein that is being rolled over, this is not present on the contralateral side though and can feel something, she is slightly tender to palpation when I push year Imaging: XR 3 views left hand No obvious bony pathology Assessment/Plan: (R22.32) Mass of left hand (primary encounter diagnosis) New and/or prior imaging was reviewed with the pt Unclear exactly what this is, it could just be a prominent vein, could be a clotted vein, she is scheduled for vein ultrasound at [place] and I think she should get this I told her that after she sends me these results, we can decide if this is something that needs a procedure or if I want to get an MRI to obtain more information Return to clinic after she gets the pain ultrasound Will continue to monitor patient for Mass of left hand (primary encounter diagnosis), patient to schedule visit as per follow up discussed. Medical Decision Making: Problems: Moderate: New problem with uncertain prognosis Data: Unique test(s) ordered: 1 Risk: Low: Low risk from testing/treatment Medical Decision Making Level: 3 - Low Neptali Murray MD Hand Surgery *The above reflects my independent exam and review. I saw and examined the patient myself personally. Parts of the HPI, ROS, exam, and impression/plan may have been copied from my previous clinical note and remain pertinent. Current changes have been made and documented today. Other parts or date were deleted if not relevant for today. Plan as outlined. *This note was produced using speech recognition software and may contain errors related to that system including but not limited to punctuation, spelling, grammar, gender, and words or phrases that may be inappropriate.* REVIEW OF SYSTEMS: GENERAL: Well developed, well nourished. No acute distress PAIN: Negative for pain, history of chronic pain or current treatment for chronic pain conditions CARDIOVASCULAR: Negative for chest pain, leg swelling and palpations. MSK: Negative for joint swelling SKIN: Negative for lesions, rash, itching, metal sensitivity NEURO: Numbness/tingling of extremties ENDOCRINE: Negative for diabetic associated symptoms HEMATOLOGY: Negative for excessive bleeding, clots, bleeding disorders. documented in this encounter [facility] 09-17-2024 Note HNO ID: [id number] Author: ADRIAN GUILLORY Tech Service: ? Author Type: Paramedic Instructor Type: Progress Notes Filed: 09/18/2024 11:59 Note Text: REVIEW OF SYSTEMS: GENERAL: Well developed, well nourished. No acute distress PAIN: Negative for pain, history of chronic pain or current treatment for chronic pain conditions CARDIOVASCULAR: Negative for chest pain, leg swelling and palpations. MSK: Negative for joint swelling SKIN: Negative for lesions, rash, itching, metal sensitivity NEURO: Numbness/tingling of extremties ENDOCRINE: Negative for diabetic associated symptoms HEMATOLOGY: Negative for excessive bleeding, clots, bleeding disorders. [facility] 09-09-2024 Telephone encount er Note APPT ,MADE [facility] 09-09-2024 Telephone encount er Note ----- Message from Shayla Segovia sent at 09/09/2024 12:52 PM EST ----- Regarding: Orthopedics / Hand: RFV Not Found / RFV Not Found In Schd Tool // an artery is budging out of left hand palm causing swelling between palm and left thumb Orthopedics / Hand: RFV Not Found / RFV Not Found In Schd Tool // an artery is budging out of left hand palm causing swelling between palm and left thumb Patient has been identified by name and Date of (Y/N): yes Patient: Shannon Dunn Date of : 1985 Previous Provider Seen: n/a Body Part(s) Identified: left hand Diagnosis/Reason For Visit: artery issue Reason for the call/escalation: Dx not in tool If reason for call/escalation is discharge from ED/ER or Hospital, which facility was the patient seen at: patient saw vascular surgeon who referred her to ortho hand doctor Was an appointment scheduled (Y/N): no Person calling if other than patient: no Return call to if other than patient: no Best contact number: [phone] Thank you, Shayla Jalyn September 09, 2024 12:55 PM [facility] 09-09-2024 Miscellaneous Notes Formattin g of this note might be different from the original. APPT ,MADE ----- Message from Shayla Segovia sent at 09/09/2024 12:52 PM EST ----- Regarding: Orthopedics / Hand: RFV Not Found / RFV Not Found In Schd Tool // an artery is budging out of left hand palm causing swelling between palm and left thumb Orthopedics / Hand: RFV Not Found / RFV Not Found In Schd Tool // an artery is budging out of left hand palm causing swelling between palm and left thumb Patient has been identified by name and Date of (Y/N): yes Patient: Shannon Dunn Date of : 1985 Previous Provider Seen: n/a Body Part(s) Identified: left hand Diagnosis/Reason For Visit: artery issue Reason for the call/escalation: Dx not in tool If reason for call/escalation is discharge from ED/ER or Hospital, which facility was the patient seen at: patient saw vascular surgeon who referred her to ortho hand doctor Was an appointment scheduled (Y/N): no Person calling if other than patient: no Return call to if other than patient: no Best contact number: [phone] Thank you, Shayla Jalyn September 09, 2024 12:55 PM documented in this encounter [facility] 09-23-2023 Evaluation + Plan note Associated Problem(s): 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 - Continue Lamictal and Celexa. - F/u in 6 months at CPE. [facility] 09-23-2023 Miscellaneous Notes Associate d Problem(s): 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 - Continue Lamictal and Celexa. - F/u in 6 months at CPE. documented in this encounter [facility] 09-23-2023 History of Presen t illness Narrative Images from the original note were not included. [facility] [address] [facility] [address] Dept: [phone] Dept Reason for Visit: Med Refill Assessment and Plan 1. Adjustment reaction with anxiety and depression Assessment & Plan: - Chronic/stable. - Continue Lamictal and Celexa. - F/u in 6 months at CPE. Orders: - lamoTRIgine (LaMICtal) 200 MG tablet; Take 1 tablet (200 mg) by mouth daily., Starting 09/23/2023, Normal Follow up in about 6 months (around 03/23/2024) for CPE w/ PAP. Subjective Depression Visit Type: follow-up Patient is not experiencing: depressed mood, excessive worry, irritability, nervousness/anxiety, panic, suicidal ideas and thoughts of . Frequency of symptoms: occasionally Severity: moderate Sleep quality: fair Nighttime awakenings: occasional Compliance with medications: 76-100% Review of Systems Constitutional: Negative for irritability. Psychiatric/Behavioral: Positive for depression and dysphoric mood. Negative for suicidal ideas. The patient is not nervous/anxious. Allergies Allergen Reactions Cefadroxil Hives and Itching Duricef * Outpatient Medications Prior to Visit Medication Sig Dispense Refill citalopram (CeleXA) 20 MG tablet Take 1 tablet (20 mg) by mouth daily. 90 tablet 3 diphenhydrAMINE (BENADryl) 25 MG capsule Take 25 mg by mouth. ibuprofen 200 MG tablet Take 200 mg by mouth every 6 hours as needed. magnesium oxide (Mag-Ox) 400 mg tablet 400 mg as needed. lamoTRIgine (LaMICtal) 200 MG tablet TAKE 1 TABLET BY MOUTH DAILY 90 tablet 3 No facility-administered medications prior to visit. History reviewed. No pertinent past medical history. Social History Tobacco Use Smoking status: Former Packs/day: .5 Types: Cigarettes Smokeless tobacco: Never Substance Use Topics Alcohol use: Never Past Surgical History: Procedure Laterality Date NOSE SURGERY 2002 Family History Problem Relation Name Age of Onset No Known Problems Mother No Known Problems Father Objective BP 113/73 Pulse 91 Ht 5' 3 (1.6 m) Wt 119 lb (54 kg) SpO2 99% BMI 21.08 kg/m Physical Exam Vitals and nursing note reviewed. Constitutional: Appearance: Normal appearance. Cardiovascular: Rate and Rhythm: Normal rate and regular rhythm. Heart sounds: Normal heart sounds. Pulmonary: Effort: Pulmonary effort is normal. Breath sounds: Normal breath sounds. Neurological: Mental Status: She is alert. Psychiatric: Mood and Affect: Mood normal. Behavior: Behavior normal. Thought Content: Thought content normal. Judgment: Judgment normal. Data Reviewed and Summarized Labs: Imaging/Testing: Michael Hernandez PA-C documented in this encounter [facility] 09-22-2023 Telephone encount er Note Patient scheduled 09/23/23 [facility] 09-22-2023 Miscellaneous Notes Formattin g of this note might be different from the original. Patient scheduled 09/23/23 Lmom asking pt to call back to schedule for Rx refill, or to schedule through mychart Pt needs an appt for physical Pls call to schedule documented in this encounter [facility] 09-19-2023 Telephone encount er Note Lmom asking pt to call back to schedule for Rx refill, or to schedule through mychart [facility] 09-18-2023 Telephone encount er Note Pt needs an appt for physical Pls call to schedule [facility] 08-26-2022 Evaluation + Plan note Associated Problem(s): Adjustment reaction with anxiety and depression Chronic, stable Tolerates the lamotrigine and citalopram Checked the labs last year Patient is self pay. Will repeat next year Adjust the dose as indicated [facility] 08-26-2022 Miscellaneous Notes Associate d Problem(s): Adjustment reaction with anxiety and depression Chronic, stable Tolerates the lamotrigine and citalopram Checked the labs last year Patient is self pay. Will repeat next year Adjust the dose as indicated documented in this encounter [facility] 08-26-2022 History of Presen t illness Narrative Subjective Patient ID: Shannon Dunn is a 37 y.o. female who presents for Med Refill (Medications are pending. No questions or concerns when asked. ). BP and weight are good. Tolerates the medicine. No issues. Not currently . Not working. Chart reviewed. Review of Systems Gastrointestinal: Negative for nausea. Neurological: Negative for dizziness, light-headedness and headaches. Psychiatric/Behavioral: Negative for sleep disturbance and suicidal ideas. The patient is not nervous/anxious. Objective Physical Exam Vitals and nursing note reviewed. Constitutional: General: She is not in acute distress. Appearance: She is not ill-appearing or toxic-appearing. Eyes: General: No scleral icterus. Conjunctiva/sclera: Conjunctivae normal. Pupils: Pupils are equal, round, and reactive to light. Cardiovascular: Rate and Rhythm: Normal rate and regular rhythm. Heart sounds: Normal heart sounds. No murmur heard. Pulmonary: Effort: Pulmonary effort is normal. No respiratory distress. Breath sounds: Normal breath sounds. Abdominal: General: Bowel sounds are normal. Tenderness: There is no abdominal tenderness. There is no right CVA tenderness or left CVA tenderness. Musculoskeletal: Right lower leg: No edema. Left lower leg: No edema. Skin: Coloration: Skin is not jaundiced. Neurological: Mental Status: She is alert and oriented to person, place, and time. Psychiatric: Behavior: Behavior normal. Judgment: Judgment normal. Assessment/Plan Problem List Items Addressed This Visit Other Adjustment reaction with anxiety and depression - Primary Chronic, stable Tolerates the lamotrigine and citalopram Checked the labs last year Patient is self pay. Will repeat next year Adjust the dose as indicated Relevant Medications citalopram (CeleXA) 20 MG tablet lamoTRIgine (LaMICtal) 200 MG tablet documented in this encounter [facility] note Diagnosis Adjustment reaction with anxiety and depression Adjustment disorder with mixed anxiety and depressed mood documented in this encounter [facility]* Diagnosis Adjustment reaction with anxiety and depression Adjustment disorder with mixed anxiety and depressed mood documented in this encounter [facility]* Diagnosis Adjustment reaction with anxiety and depression- Primary Adjustment disorder with mixed anxiety and depressed mood documented in this encounter [facility]* Diagnosis Adjustment reaction with anxiety and depression Adjustment disorder with mixed anxiety and depressed mood documented in this encounter [facility]* Diagnosis Mass of left hand- Primary [facility] Diagnosis Mass of left hand- Primary Localized swelling, mass, or lump of left upper extremity [facility] Diagnosis Localized swelling, mass, or lump of left upper extremity [facility] Diagnosis Pain in left hand documented in this encounter [facility] for visit Narrative* MRI/CT (Routine) - Closed Specialty Diagnoses / Procedures Referred By Contac t Referred To Contact MR IMAGING Diagnoses Localized swelling, mass, or lump of left upper extremity Procedures MRI HAND WO IVCON LEFT MRI UPPER EXTREMITY OTH THAN JT W/O CONTR Neptali Freeman MD [address] [facility] [address] [place] [address] Phone: tel: fax: [id number] Referral ID Status Reason Start Date Expiration Date V isits Requested Visits Authorized [id number] Closed Auto-Generate d Referral 10/19/2024 12/18/2024 1 1 [facility] Assessments Diagnosis Hand pain, left Pain in limb Thumb pain, left Advance Directives No Advanced Directives Records FoundDocuments on File Type Date Recorded 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 Advance Directives and Living Will Power of Commercial Marketing Specialist Summary Purpose Family History No Family History Records FoundNo Family History Records FoundNo Family History Records FoundNo Family History Records FoundNo Family History Records Found Additional Source Comments INFORMATION SOURCE (unrecogn ized section and content) DATE CREATED AUTHOR 01/04/2020 [facility] DATE CREATED AUTHOR AUTHOR'S ORGANIZ ATION 01/23/2023 [facility] DATE CREATED AUTHOR AUTHOR'S ORGANIZ ATION 09/23/2023 [facility] DATE CREATED AUTHOR AUTHOR'S ORGANIZ ATION 10/08/2024 [facility] DATE CREATED AUTHOR AUTHOR'S ORGANIZ ATION 12/12/2024 [facility] Reason for Visit (unrecogniz ed section and content) Reason Comments Med Refill Reason Comments Med Refill Medications are pend ing. No questions or concerns when asked. Reason Comments Consult Reason Comments New Pain Reason Comments Pain Established Patient Swelling Care Teams (unrecognized sec tion and content) Testboard Operator Relationship Specialty Start Date End Date Latrice Horner MD [address] [place] [address] [address] [place] [address] PCP - General 11/02/15 Testboard Operator Relationship Specialty Start Date End Date Latrice Horner MD [address] [place] [address] [address] [place] [address] PCP - General 11/02/15 Testboard Operator Relationship Specialty Start Date End Date Latrice Horner MD [address] [facility] [address] [place] [address] PCP - General 11/02/15 Testboard Operator Relationship Specialty Start Date End Date Latrice Horner MD [address] [facility] [place] [address] PCP - General 11/02/15 Testboard Operator Relationship Specialty Start Date End Date Yokasta Miller MD [address] [place] [address] PCP - General Internal Medicine 09/09/24 Testboard Operator Relationship Specialty Start Date End Date Yokasta Miller MD [address] [place] [address] PCP - General Internal Medicine 09/09/24 Testboard Operator Relationship Specialty Start Date End Date Yokasta Miller MD [address] [place] [address] PCP - General Internal Medicine 09/09/24 Testboard Operator Relationship Specialty Start Date End Date Yokasta Miller MD [address] [facility] [address] [place] [address] PCP - General Internal Medicine 09/09/24 Testboard Operator Relationship Specialty Start Date End Date Yokasta Miller MD [address] [facility] [address] [place] [address] PCP - General Internal Medicine 09/09/24 Source Comments (unrecognize d section and content) In the event this informatio n is protected by the Federal Confidentiality of Alcohol and Drug Abuse Patient Records regulations: The Federal rules restrict any use of the information to criminally investigate or prosecute any alcohol or drug abuse patient.[facility] the event this information is protected by the Federal Confidentiality of Alcohol and Drug Abuse Patient Records regulations: The Federal rules restrict any use of the information to criminally investigate or prosecute any alcohol or drug abuse patient.[facility] the event this information is protected by the Federal Confidentiality of Alcohol and Drug Abuse Patient Records regulations: The Federal rules restrict any use of the information to criminally investigate or prosecute any alcohol or drug abuse patient.[facility] the event this information is protected by the Federal Confidentiality of Alcohol and Drug Abuse Patient Records regulations: The Federal rules restrict any use of the information to criminally investigate or prosecute any alcohol or drug abuse patient.[facility] CenterIn the event this information is protected by the Federal Confidentiality of Alcohol and Drug Abuse Patient Records regulations: The Federal rules restrict any use of the information to criminally investigate or prosecute any alcohol or drug abuse patient.[facility] Center[facility] the event this information is protected by the Federal Confidentiality of Alcohol and Drug Abuse Patient Records regulations: The Federal rules restrict any use of the information to criminally investigate or prosecute any alcohol or drug abuse patient.[facility] FOR RECORDS PERTAINING TO PATIENTS WHO ARE OR HAVE BEEN ENROLLED IN A CHEMICAL DEPENDENCY/SUBSTANCEABUSE PROGRAM, SOME INFORMATION MAY BE OMITTED. This clinical summary was aggregated from multiple sources. Caution should be exercised in using it in the provision of clinical care. This summary normalizes information from multiple sources, and as a consequence, information in this document may materially change the coding, format and clinical context of patient data. In addition, data may be omitted in some cases. CLINICAL DECISIONS SHOULD BE BASED ON THE PRIMARY CLINICAL RECORDS. [facility]. provides no warranty or guarantee of the accuracy or completeness of information in this document.
== END 2025-01-18 23:59 | disposition home or self-care (01) ==
LOC: MFPLAB 11:05
PROVIDERS: PCP Family Medicine; Referring Provider Family Medicine; Visit Provider Family Medicine
DX: E03.8 Other specified hypothyroidism (principal); Z13.220 Encounter for screening for lipoid disorders; E55.9 Vitamin D deficiency, unspecified
CPT/HCPCS: 36415; 80061; 82306; 84443

== ENCOUNTER → 2025-01-25 | Outpatient (CLI) | payer MEDICAID, SELFPAY ==
--- NOTE | 2025-01-25 13:42 | BI_ITS ---
EXAM: SCRN MAMM (CAD)W/LIZA BILAT DATE: 01/25/2025 CLINICAL HISTORY: F, Age 39 y/o , SCREENING TECHNIQUE: SCRN MAMM (CAD)W/LIZA BILAT COMPARISON: None available FINDINGS: TISSUE DENSITY: The breast tissue is heterogeneously dense, which may obscure small masses. Bilateral Breast Mammographic Findings: Left breast: There is questionable architectural distortion in the central left breast mid depth on the CC view. There is an asymmetry in the inner left breast mid depth on the CC view. Right breast: No suspicious masses, calcifications or other abnormalities are identified. BI/SCRN MAMM (CAD)W/LIZA BILAT IMPRESSION: Additional diagnostic imaging is recommended of the left breast with diagnostic left breast mammogram and ultrasound. No mammographic evidence of malignancy in the right breast. OVERALL FINAL ASSESSMENT BI-RADS 0: INCOMPLETE - NEED ADDITIONAL IMAGING EVALUATION. RECOMMENDATION: Additional Views/call backs A letter with findings and recommendations will be mailed to the patient. Reading Location: [id number]
== END | disposition home or self-care (01) ==
LOC: OPBI 13:41
PROVIDERS: PCP Family Medicine; Referring Provider Family Medicine; Visit Provider Family Medicine
DX: Z12.31 Encounter for screening mammogram for malignant neoplasm of breast (principal)
CPT/HCPCS: 77063; 77067

== ENCOUNTER → 2025-02-01 | Outpatient (CLI) | payer MEDICAID, SELFPAY ==
--- OUTSIDE RECORDS SUMMARY | 2025-02-01 22:48 | XMS RPT_ITS | CCD ---
Author Organization [facility] Care Team Providers Care Dressing Room Attendant Name Role Phone Latrice Horner Primary Care Provider [phone] Ms. Armin Maciel Attending Chloe Maciel, Ms. Armin Mejia Attending Chloe Horner MD, [facility] Primary Care Provider [phone] MICHAEL HERNANDEZ Attending Unavailable NATALIE HORNERA Primary Care Unavailable Evens RAIN, Latrice S Primary Care Provider [phone] Maico RAIN, Yokasta Primary Care Provider NEPTALI MURRAY Attending Unavailabl e MAICO, CHALON Primary Care Unavailable NEPTALI MURRAY Referring Unavailabl e MAICO, CHALON Primary Care Unavailable NEPTALI MURRAY Attending Unavailabl e SELF Referring Unavailable MAICO, CHALON Primary Care Unavailable Maico RAIN, Yokasta Primary Care Provider Yokasta Miller MD Attending Provider Yokasta Miller MD Referring Provider [phone] Yokasta Miller Attending Unavailable Maico, Chalon Referring Unavailable Maico, Chalon Primary Care Unavailable Kauffman, Shayla Attending Unavailable Kauffman, Shayla Referring Unavailable Maico, Chalon Primary Care Unavailable Neptali Murray Consulting Unavailabl e Cassy Rosen Attending Unavailable Maico, Chalon Referring Unavailable Maico, Chalon Primary Care Unavailable Brent Samuel Attending Unavailable Maico, Chalon Primary Care Unavailable Kauffman, Shayla Referring Unavailable Kauffman, Shayla Attending Unavailable Maico, Chalon Referring Unavailable Maico, Chalon Primary Care Unavailable Maico, Chalon Attending Unavailable Maico, Chalon Referring Unavailable Maico, Chalon Primary Care Unavailable Maico, Chalon Attending Unavailable Maico, Chalon Referring Unavailable Maico, Chalon Primary Care Unavailable Yokasta Miller Attending Unavailable Yokasta Miller Referring Unavailable Yokasta Miller Primary Care Unavailable Allergies Allergy Classification Reported Allergen(s) Allergy Type Date of Onset Reaction(s) Facility (12 sources) Cefadroxil; Translations: [CEFADROXIL] Drug Allergy 6 Hives, Itching, Unknown [place] (2 sources) Azithromycin Drug Allergy 5 [facility] (1 source) Azithromycin Drug Allergy 5 [facility] Medications Current Medications Medication Drug Class(es) Dates Sig (Normalized) Sig (Original) 24 hr buPROPion hydrochloride 300 mg extended release oral tablet (1 source) Aminoketone Start: 09-23-2019 take 1 tablet by mouth once daily in the morning buPROPion (WELLBUTRIN XL) 300 MG extended release tablet Indications: Adjustment reaction with anxiety and depression Take 1 tablet by mouth every morning 30 tablet 13 09/23/2019 Active Cholecalciferol (Vitamin D3) (2 sources) Vitamin D Start: 08-05-2024 take 1250 ug by mouth every week Cholecalciferol (Vitamin D3) 1,250 mcg (50,000 unit) wafer Active 1250 ug PO EVERY WEEK August 05, 2024 1:00am citalopram 20 mg oral tablet (5 sources) Serotonin Reuptake Inhibitor Start: 12-29-2021 End: 08-26-2023 take 1 tablet by mouth once daily citalopram (CeleXA) 20 MG tablet Indications: Adjustment reaction with anxiety and depression Take 1 tablet (20 mg) by mouth daily. 90 tablet 3 08/26/2022 08/26/2023 Active clonazePAM 2 mg oral tablet (3 sources) Benzodiazepine Start: 08-02-2024 take 1 tablet by mouth once daily Clonazepam (Klonopin) 2 mg tablet Active 2 mg PO daily August 02, 2024 1:00am take 0.25 mg by mout h every twelve hours as needed clonazePAM (KLONOPIN) [...] every 6 hours as needed. 0 Active lamoTRIgine 200 mg oral tablet (16 sources) Mood Stabilizer, Anti-epileptic Agent Start: take 1 tablet by mouth once daily Lamotrigine (Lamictal) 200 mg tablet Active 200 mg PO daily August 02, 2024 1:00am Start: 06-28-2022 End: 09-23-2023 take 1 tablet by mouth once daily lamoTRIgine (LaMICtal) 200 MG tablet Indications: Adjustment reaction with anxiety and depression Take 1 tablet (200 mg) by mouth daily. 90 tablet 3 08/26/2022 09/26/2022 Discontinued Start: 09-23-2019 take 1 tablet by mandy th once daily lamoTRIgine (LAMICTAL) 200 MG tablet Indications: Adjustment reaction with anxiety and depression Take 1 tablet by mouth daily 30 tablet 13 09/23/2019 Active LAMOTRIGINE (PINEDO ICTAL ODT ORAL) Take by mouth. Active Magnesium Oxide (4 sources) magnesium oxide (Mag-Ox) 400 mg tablet 400 mg as needed. 0 Active methylPREDNISolone 4 mg oral tablet (1 source) Corticosteroid Start: 2019 methylPREDNISolone (MEDROL DOSEPACK) 4 MG tablet Indications: Hand pain, left , Thumb pain, left Take by mouth. 1 kit 0 01/03/2020 Active traZODone hydrochloride 50 mg oral tablet (2 sources) Serotonin Reuptake Inhibitor Start: 2023 take 1 tablet by mouth once daily Trazodone 50 mg tablet Active 50 mg PO daily August 02, 2024 1:00am Completed/Discontinued Medications Medication Drug Class(es) Dates Sig (Normalized) Sig (Original) omeprazole 40 mg delayed release oral capsule (2 sources) Proton Pump Inhibitor Start: 08-05-2024 End: 08-31-2024 take 1 capsule by mouth once daily Omeprazole 40 mg capsule,delayed release(DR/EC) Discontinued 40 mg PO daily 90 1 August 05, 2024 1:00am August 31, 2024 9:42am Problems Active Problems Problem Classification Problem Date Documented Da te Episodic/Chronic Abdominal pain (2 sources) Epigastric pain; Translations: [Epigastric pain] 08-05-2024 Episodic Adjustment disorders (11 sources) Adjustment disorder with mixed anxiety and depressed mood; Translations: [Adjustment disorder with mixed anxiety and depressed mood] Onset: 12-06-2015 12-06-2015 Chronic Nausea and vomiting (2 sources) Nausea and vomiting; Translations: [Nausea with vomiting, unspecified] 08-05-2024 Episodic Other aftercare (3 sources) Other termite treater (current) drug therapy; Translations: [Other jail (current) drug therapy] Onset: 01-20-2023 Episodic Other connective tissue disease (1 source) Pain of left hand; Translations: [Pain in left hand] 12-10-2024 Episodic Other connective tissue disease (2 sources) Hand pain; Translations: [Pain in left hand] 08-31-2024 Episodic Other connective tissue disease (1 source) Pain of left hand; Translations: [Hand pain, left] Other connective tissue disease (1 source) Pain in left thumb; Translations: [Thumb pain, left] Other screening for suspected conditions (not mental disorders or infectious disease) (1 source) Encounter for screening mammogram for malignant neoplasm of breast; Translations: [Encounter for screening mammogram for malignant neoplasm of breast] Onset: 01-31-2025 Episodic Other skin disorders (3 sources) Mass [...] of left upper extremity] Onset: 11-01-2024 Episodic Other skin disorders (2 sources) Localized swelling of left hand; Translations: [Localized swelling, mass and lump, left upper limb] 08-31-2024 Episodic Thyroid disorders (1 source) Other specified hypothyroidism; Translations: [Other specified hypothyroidism] Onset: 01-23-2025 Chronic Unclassified (1 source) New Onset: 09-17-2024 Past or Other Problems Problem Classification Problem Date Documented Da te Episodic/Chronic Blindness and vision defects (6 sources) Myopia; Translations: [Myopia, unspecified eye] Onset: 12-04-2015 12-04-2015 Episodic Other connective tissue disease (1 source) Pain in left hand; Translations: [Pain in left hand] Onset: 10-06-2024 Episodic Other nutritional; endocrine; and metabolic disorders (1 source) Underweight; Translations: [Underweight] Onset: 09-06-2024 Episodic Unclassified (2 sources) Disorder of left upper extremity 10-07-2024 Results Test Name Value Interpretation Reference Range Facility Calculated very low density lipoprotein (VLDL) cholesterol measurementOrdered By: Yokasta Miller on 01-18-2025 Calculated very low density lipoprotein (VLDL) cholesterol measurement 17 mg/dL 5-40 [facility] LDL calc ser/plasOrdered By: Yokasta Miller on 01-18-2025 Cholesterol in LDL [Mass/Vol] 93 mg/dL [facility] Comment on above: Atxyszoemt=232-233 m g/dL & Higher Qtpk=505 mg/dL or greater Lipid Profileon 01-18-2025 CHOL:HDL 2.74 Normal [facility] Comment on above: Order Comment: Order Date: 01/18/25 Order Info: [id number] - LIPID Order Info: 3016-3 - TSH Performed By: #### L 500.4100, L501.9520 #### [facility] [address] [place], [place], [id number] Cholesterol [Mass/Vol] 173 mg/dL Normal <=200 [facility] Comment on above: Order Comment: Order Date: 01/18/25 Order Info: [id number] - LIPID Order Info: 3016-3 - TSH Result Comment: Chol esterol level, Desirable <200 mg/dL Borderline high cholesterol 200-239 mg/dL High cholesterol >=240 mg/dL Recommendations of the NCEP Adult Treatment Panel for the following risk-cutoff thresholds for the [place] population. Performed By: #### L 500.4100, L501.9520 #### [facility] [address] [place], [place], [id number] Cholesterol in HDL [Mass/Vol] 63 mg/dL Normal [facility] Comment on above: Order Comment: Order Date: 01/18/25 Order Info: [id number] - LIPID Order Info: [id number] - TSH Result Comment: [place]ic[place] onal Cholesterol Education Program (NCEP) guidelines: <40 mg/dL: Low HDL-cholesterol (major risk factor for CHD) >= 60 mg/dL: High HDL-cholesterol (negative risk factor for CHD) HDL-cholesterol is affected by a number of factors, e.g. smoking, exercise, hormones, sex and age. Performed By: #### L 500.4100, L501.9520 #### [facility] [address] [place], [address] Cholesterol in LDL [Mass/Vol] 93 mg/dL Normal [facility] Comment on above: Order Comment: Order Date: 01/18/25 Order Info: [id number] - LIPID Order Info: [id number] - TSH Result Comment: Bord ppwtwz=763-516 mg/dL Higher Dnow=256 mg/dL or greater Performed By: #### L 500.4100, L501.9520 #### [facility] [address] [place], [address] Cholesterol in VLDL [Mass/Vol] 17 mg/dL Normal 5-40 [facility] Comment on above: Order Comment: Order Date: 01/18/25 Order Info: [id number] - LIPID Order Info: [id number] - TSH Performed By: #### L 500.4100, L501.9520 #### [facility] [address] [place], [address] Triglyceride [Mass/Vol] 83 mg/dL Normal [facility] Comment on above: Order Comment: Order Date: 01/18/25 Order Info: [id number] - LIPID Order Info: [id number] - TSH Result Comment: The drugs N-Acetylcysteine and Metamizole may falsely depress this assay. Normal range: <150 mg/dL Borderline High: 150-199 mg/dL High: 200-499 mg/dL Very High: >500 mg/dL Performed By: #### L 500.4100, L501.9520 #### [facility] [address] [place], [address] Screening total cholesterol/ high density lipoprotein (HDL) cholesterol ratioOrdered By: Yokasta Miller on 01-18-2025 Cholesterol.total/Chol esterol in HDL [Mass ratio] 2.74 {ratio} [facility] Serum or plasma cholesterol in HDL measurement (mass/volume)Ordered By: Yokasta Miller on 01-18-2025 Cholesterol in HDL [Mass/Vol] 63 mg/dL >40 [facility] Comment on above: National Cholesterol Education Program (NCEP) guidelines:<40 mg/dL: Low HDL-cholesterol (major risk factor for CHD)>= 60 mg/dL: High HDL-cholesterol (negative risk factor for CHD)HDL-cholesterol is affected by a number of factors, e.g. smoking, exercise, hormones, sex and age. Serum or plasma cholesterol measurement (mass/volume)Ordered By: Yokasta Miller on 01-18-2025 Cholesterol [Mass/Vol] 173 mg/dL <201 [facility] Comment on above: Cholesterol level, D esirable <200 mg/dLBorderline high cholesterol 200-239 mg/dLHigh cholesterol >=240 mg/dLRecommendations of the NCEP Adult Treatment Panel for the following risk-cutoff thresholds for the [place] population. TSH DL <= 0.005 mIU/L QnOrde red By: Yokasta Miller on 01-18-2025 TSH Qn 3.630 uIU/mL 0.300-4.200 [facility] Thyroid Stim Hormone (TSH)on 01-18-2025 TSH 3.630 uIU/mL Normal 0.300-4.200 [facility] Comment on above: Order Comment: Order Date: 01/18/25 Order Info: [id number] - LIPID Order Info: [id number] - TSH Performed By: #### L 500.4100, L501.9520 #### [facility] [address] [place], [place], [id number] Triglycerides measurementOrd ered By: Yokasta Miller on 01-18-2025 Triglyceride [Mass/Vol] 83 mg/dL <199 [facility] Comment on above: The drugs N-Acetylcy steine and Metamizole may falsely depress this assay. Normal range: <150 mg/dLBorderline High: 150-199 mg/dLHigh: 200-499 mg/dLVery High: >500 mg/dL Vitamin D,25 Hydroxyon 01-18 Vitamin D 25-OH 19.2 ng/mL Low 30-100 [facility] Comment on above: Order Comment: Order Date: 01/18/25 Order Info: [id number] - LIPID Order Info: [id number] - TSH Result Comment: Annetta min D Status Deficiency: <20 ng/mL (50nmol/L) Insufficiency: 20-30 ng/mL (50-75 nmol/L) Sufficiency: 30-100 ng/mL (75-250 nmol/L) Toxicity: >100 ng/mL (>250 nmol/L) Performed By: #### L 506.1001 #### [facility] [address] [place], [address] CNOVon 12-10-2024 CNOV Office Visit (AGHWW1 ) SHANNON DUNN ([id number]) 1985 F Date Time Provider Department 12/10/24 1:00 PM NEPTALI MURRAY AGHWW1 During your visit today, we recorded the following information about you: Respiration Weight Height 20/minute 47.2 kg 1.6 m Neptali Murray MD 12/10/2024 4:06 PM Signed Hand Clinic Follow-up Note Prior Hx: 2020 L thenar mass arose 09/24/24 U/S LUE-no [...] and words (more content not included)... Normal [facility] MRI HAND WO IVCON LTon 11-01 MRI [...] soft tissue mass or other acute finding. Silk Screen Printer Helper: PSCB Transcribe Date/Time: Nov 06 2024 10:24A Dictated by : GUILLERMINA YANCEY MD This examination was interpreted and the report reviewed and electronically signed by: GUILLERMINA YANCEY MD on Nov 06 2024 10:31AM EST [id number] Normal [facility] Venous Duplex US, Unilateral on 09-24-2024 Venous Duplex US, Unilateral [facility] [address] [place] [address] Venous Duplex US, Unilateral 09/24/24 1357 MR#: [id number] Acct: [id number] Name: SHANNON DUNN Rep #: [id number] : 1985 39 From: Brent Samuel MD [...] Physician: Yokasta Miller Performed By: Yvette Sloan RVT ??? 09/28/24813 Date Brent Samuel MD CC: ROJELIO Bryan; Dr. Yokasta Miller MD Date Dictated: 09/24/24 1357 Date Transcribed: 09/28/2414 Silk Screen Printer Helper: Signed Normal [facility] CNOVon 09-17-2024 [facility] Office Visit (AGHWW1 ) SHANNON DUNN ([id number]) 1985 F Date Time Provider Department 09/17/24 [...] Surgery New Pt Note HPI: 39-year-old female umsrj-jhel-njpxwdxo not working No diabetes, no smoking She thinks that in 2019 this thenar mass arose and it has been worked up at [facility] Never had an MRI Never had an [...] she is scheduled for vein ultrasound at [place] and I think she should get this [...] - Fully Assessed Reason for Visit: New [699556] Pain [78] Primary Visit Diagnosis:Mass of left hand [R22.32] Order(s):XR HAND GENERAL 3V PA/LAT/OBL LEFT [8571602] Order #: [id number] Prescriptions as of 09/18/2024 - LAMOTRIGINE (LAMICTAL ODT ORAL) Take by mouth. Problem List As Of Date 09/17/2024 Noted Resolved Myopia [H52.10] 12/04/2015 Letter Text Encounter Status:Closed by NEPTALI MURRAY on 09/18/24 [facility] 09-09-2024 CNPN Telephone (AGPOB1) SHANNON DUNN ([id number]) 1985 F Date Time Provider Department 09/09/24 NEPTALI MURRAY AGPOB1 During your visit today, we recorded the following information about you: Jacquelyn Mcgraws Jolly Dobson 09/09/2024 2:26 PM Signed ----- Message from [...] other than patient: no Best contact number: [phone] Thank you, Shayla Gunderson September 09, 2024 [...] Resolved Myopia [H52.10] 12/04/2015 Encounter Status:Closed by JOLLY MERINO on 09/09/24 [facility] MR/BMSGómez 08-31-2024 MR/BMSBONNY [facility] Vascular Surgery [address] [place] [address]. [address] [place] [address] OFFICE VISIT Date of Service: 08/31/24 MR#: [id number] Acct: [id number] Name: SHANNON DUNN Rep #: [id number] : 1985 Provider: ROJELIO Bryan Age/Sex: 39/F Location: [facility] Status: Signed Intake Vital Signs 08/05/24 [...] medports/PICCs, radiation. She was seen by an sight effects specialist in 2020, at that time reports it was mostly [...] No numbnes (more content not included)... Normal [facility] Thyroid Stim Hormone (TSH)on 08-31-2024 TSH 4.020 uIU/mL High 0.358-3.740 [facility] Comment on above: Order Comment: Order Date: 08/09/24 Order Info: 3016-3 - TSH Performed By: #### L 501.9520 #### [facility] [address], [address] Gastroenterology Visit Repor ton 08-05-2024 Gastroenterology Visit Report [facility] Gastroenterology [address] [address] OFFICE VISIT Date of Service: 08/05/24 MR#: [id number] Acct: [id number] Name: SHANNON DUNN Rep #: [id number] : 1985 Provider: ROJELIO Kirkpatrick Age/Sex: 39/F Location: [facility] Status: Signed Intake Vital Signs 08/05/24 10:10 [...] no prior hx of EGD or colonoscopy. FOR[facility]LY [facility], [facility] Medical History Stomach irritation Varicose veins [...] to the office today for establishment with [facility]. Pt was referred here to us for [...] her sy (more content not included)... [facility] TEST Normal [facility] Comment on above: Order Comment: VIT K #[id number] PLASMA PFL RF Result Comment: TEST RESULTS LIMITS Vitamin K1 0.23 ng/mL 0.10-2.20 TESTING PERFORMED AT [facility]. ORIGINAL REPORT ON FILE IN LAB CONTAINS ADDITIONAL TEST SITE INFORMATION. Performed By: #### L 801.1541 #### [facility] [address] [place], [address] CBC W/Diff, Automatedon 07-04 Absolute Lymph 2.42 X10 3/uL Normal 0.83-4.51 [facility] Comment on above: Order Comment: Order Date: 07/22/24 Order Info: 0184-1 - CBCD Performed By: #### L 500.4050, L503.6550, L506.1000, L503.6030, L501.9520, L100.0100 #### [facility] [address] [place], [address] Absolute Neut 2.6 X10 3/uL Normal 2.0-7.7 [facility] Comment on above: Order Comment: Order Date: 07/22/24 Order Info: 018- - CBCD Performed By: #### L 500.4050, L503.6550, L506.1000, L503.6030, L501.9520, L100.0100 #### [facility] [address] [place], [address] Basophils/100 WBC (Bld) 1.3 % High 0-1 [facility] Comment on above: Order Comment: Order Date: 07/22/24 Order Info: 018- - CBCD Performed By: #### L 500.4050, L503.6550, L506.1000, L503.6030, L501.9520, L100.0100 #### [facility] [address] [place], [address] Eosinophils/100 WBC (Bld) 2.0 % Normal 0-5 [facility] Comment on above: Order Comment: Order Date: 07/22/24 Order Info: 018- - CBCD Performed By: #### L 500.4050, L503.6550, L506.1000, L503.6030, L501.9520, L100.0100 #### [facility] [address] [place], [address] Erythrocyte distribution width (RBC) [Ratio] 12.0 % Normal 11.6-14.6 [facility] Comment on above: Order Comment: Order Date: 07/22/24 Order Info: 018- - CBCD Performed By: #### L 500.4050, L503.6550, L506.1000, L503.6030, L501.9520, L100.0100 #### [facility] [address] [place], [address] Hematocrit (Bld) [Volume fraction] 40.1 % Normal 37-47 [facility] Comment on above: Order Comment: Order Date: 07/22/24 Order Info: 0184-1 - CBCD Performed By: #### L 500.4050, L503.6550, L506.1000, L503.6030, L501.9520, L100.0100 #### [facility] [address] [place], [address] Hemoglobin (Bld) [Mass/Vol] 13.3 g/dL Normal 12.0-15.0 [facility] Comment on above: Order Comment: Order Date: 07/22/24 Order Info: 0184-1 - CBCD Performed By: #### L 500.4050, L503.6550, L506.1000, L503.6030, L501.9520, L100.0100 #### [facility] [address] [place], [address] IG% 0.400 Normal 0.0-0.9 [facility] Comment on above: Order Comment: Order Date: 07/22/24 Order Info: 0184-1 - CBCD Result Comment: IG% - Immature Granulocytes (promyelocytes, myelocytes and metamyelocytes) > 1% indicates that a LEFT SHIFT is Present. Performed By: #### L 500.4050, L503.6550, L506.1000, L503.6030, L501.9520, L100.0100 #### [facility] [address] [place], [address] Lymphocytes/100 WBC (Bld) 43.4 % High 19-41 [facility] Comment on above: Order Comment: Order Date: 07/22/24 Order Info: 0184-1 - CBCD Performed By: #### L 500.4050, L503.6550, L506.1000, L503.6030, L501.9520, L100.0100 #### [facility] [address] [place], [address] MCH (RBC) [Entitic mass] 30.5 pg Normal 27.0-32.0 [facility] Comment on above: Order Comment: Order Date: 07/22/24 Order Info: 018- - CBCD Performed By: #### L 500.4050, L503.6550, L506.1000, L503.6030, L501.9520, L100.0100 #### [facility] [address] [place], [address] MCHC (RBC) [Mass/Vol] 33.2 g/dL Normal 32-36 [facility] Comment on above: Order Comment: Order Date: 07/22/24 Order Info: 0184- - CBCD Performed By: #### L 500.4050, L503.6550, L506.1000, L503.6030, L501.9520, L100.0100 #### [facility] [address] [place], [address] MCV (RBC) [Entitic vol] 92.0 fL Normal 81-99 [facility] Comment on above: Order Comment: Order Date: 07/22/24 Order Info: 018- - CBCD Performed By: #### L 500.4050, L503.6550, L506.1000, L503.6030, L501.9520, L100.0100 #### [facility] [address] [place], [address] Monocytes/100 WBC (Bld) 7.3 % Normal 0-10 [facility] Comment on above: Order Comment: Order Date: 07/22/24 Order Info: 0184-1 - CBCD Performed By: #### L 500.4050, L503.6550, L506.1000, L503.6030, L501.9520, L100.0100 #### [facility] [address] [place], [address] Neutrophils/100 WBC (Bld) 45.6 % Low 47-70 [facility] Comment on above: Order Comment: Order Date: 07/22/24 Order Info: 0184-1 - CBCD Performed By: #### L 500.4050, L503.6550, L506.1000, L503.6030, L501.9520, L100.0100 #### [facility] [address] [place], [address] Nucleated RBC (Bld) [#/Vol] 0 10*3/uL Normal 0-5 [facility] Comment on above: Order Comment: Order Date: 07/22/24 Order Info: 0184- - CBCD Performed By: #### L 500.4050, L503.6550, L506.1000, L503.6030, L501.9520, L100.0100 #### [facility] [address] [place], [address] Platelet mean volume (Bld) [Entitic vol] 9.9 fL Normal 6.2-12.0 [facility] Comment on above: Order Comment: Order Date: 07/22/24 Order Info: 0184- - CBCD Performed By: #### L 500.4050, L503.6550, L506.1000, L503.6030, L501.9520, L100.0100 #### [facility] [address] [place], [address] Platelets (Bld) [#/Vol] 255 10*3/uL Normal 150-450 [facility] Comment on above: Order Comment: Order Date: 07/22/24 Order Info: 0184-1 - CBCD Performed By: #### L 500.4050, L503.6550, L506.1000, L503.6030, L501.9520, L100.0100 #### [facility] [address] [place], [address] RBC (Bld) [#/Vol] 4.36 10*6/uL Normal 4.2-5.4 [facility] Comment on above: Order Comment: Order Date: 07/22/24 Order Info: 0184-1 - CBCD Performed By: #### L 500.4050, L503.6550, L506.1000, L503.6030, L501.9520, L100.0100 #### [facility] [address] [place], [address] RDW SD 40.8 fl Normal 35.1-43.9 [facility] Comment on above: Order Comment: Order Date: 07/22/24 Order Info: 0184- - CBCD Performed By: #### L 500.4050, L503.6550, L506.1000, L503.6030, L501.9520, L100.0100 #### [facility] [address] [place], [address] WBC (Bld) [#/Vol] 5.6 10*3/uL Normal 4.4-11.0 [facility] Comment on above: Order Comment: Order Date: 07/22/24 Order Info: 0184- - CBCD Performed By: #### L 500.4050, L503.6550, L506.1000, L503.6030, L501.9520, L100.0100 #### [facility] [address] [place], [address] Comprehensive Metabolic Prof ilon 07-22-2024 Albumin [Mass/Vol] 3.6 g/dL Normal 3.2-5.0 [facility] Comment on above: Order Comment: Order Date: 07/22/24Order Info: 0786-1 - CMPOrder Info: 3016-3 - TSHOrder Info: 71047-2 - IBCOrder Info: 2276-4 - MAXIM Performed By: #### L 500.4050, L503.6550, L506.1000, L503.6030, L501.9520, L100.0100 ####[facility] [address] [place], [address] Albumin/Globulin [Mass ratio] 1.2 {ratio} Normal 0.9-2.4 [facility] Comment on above: Order Comment: Order Date: 07/22/24Order Info: 86-1 - CMPOrder Info: 3015-3 - TSHOrder Info: [id number] - IBCOrder Info: 2275-4 - MAXIM Performed By: #### L 500.4050, L503.6550, L506.1000, L503.6030, L501.9520, L100.0100 ####[facility] [address] [place], [address] ALK P 53 U/L Normal 45-117 [facility] Comment on above: Order Comment: Order Date: 07/22/24Order Info: 785- - CMPOrder Info: 3 - TSHOrder Info: [id number] - IBCOrder Info: 2275-4 - MAXIM Performed By: #### L 500.4050, L503.6550, L506.1000, L503.6030, L501.9520, L100.0100 ####[facility] [address] [place], [address] ALT [Catalytic activity/Vol] 30 U/L Normal 13-56 [facility] Comment on above: Order Comment: Order Date: 07/22/24Order Info: 07 - CMPOrder Info: 3015-10 - TSHOrder Info: 35743-8 - IBCOrder Info: 2275-4 - MAXIM Performed By: #### L 500.4050, L503.6550, L506.1000, L503.6030, L501.9520, L100.0100 ####[facility] [address] [place], [address] AST [Catalytic activity/Vol] 15 U/L Normal 15-37 [facility] Comment on above: Order Comment: Order Date: 07/22/24Order Info: 785- - CMPOrder Info: 3015-10 - TSHOrder Info: 30904-0 - IBCOrder Info: 2275-11 - MAXIM Performed By: #### L 500.4050, L503.6550, L506.1000, L503.6030, L501.9520, L100.0100 ####[facility] [address] [place], [address] Bilirubin [Mass/Vol] 0.30 mg/dL Normal 0.20-1.00 [facility] Comment on above: Order Comment: Order Date: 07/22/24Order Info: 0786- - CMPOrder Info: 3015-10 - TSHOrder Info: [id number] - IBCOrder Info: 2275-11 - MAXIM Result Comment: For patients on eltrombopag therapy, use of Dimension [place] TBIL is not recommended. Performed By: #### L 500.4050, L503.6550, L506.1000, L503.6030, L501.9520, L100.0100 ####[facility] [address] [place], [address] BUN/CRE 13.0 RATIO Normal 10-20 [facility] Comment on above: Order Comment: Order Date: 07/22/24Order Info: 0786- - CMPOrder Info: 3015-10 - TSHOrder Info: [id number] - IBCOrder Info: 2275-11 - MAXIM Performed By: #### L 500.4050, L503.6550, L506.1000, L503.6030, L501.9520, L100.0100 ####[facility] [address] [place], [address] CA,Total 8.6 mg/dL Normal 8.5-10.1 [facility] Comment on above: Order Comment: Order Date: 07/22/24Order Info: 0786- - CMPOrder Info: 3 - TSHOrder Info: 70501-2 - IBCOrder Info: 2275-11 - MAXIM Performed By: #### L 500.4050, L503.6550, L506.1000, L503.6030, L501.9520, L100.0100 ####[facility] [address] [place], [address] Chloride [Moles/Vol] 108 mmol/L High 98-107 [facility] Comment on above: Order Comment: Order Date: 07/22/24Order Info: 0786-1 - CMPOrder Info: 6-3 - TSHOrder Info: 44979-5 - IBCOrder Info: 2275-11 - MAXIM Performed By: #### L 500.4050, L503.6550, L506.1000, L503.6030, L501.9520, L100.0100 ####[facility] [address] [place], [address] CO2 [Moles/Vol] 25.0 mmol/L Normal 21.0-32.0 [facility] Comment on above: Order Comment: Order Date: 07/22/24Order Info: 785-1 - CMPOrder Info: 3 - TSHOrder Info: [id number] - IBCOrder Info: 4 - MAXIM Performed By: #### L 500.4050, L503.6550, L506.1000, L503.6030, L501.9520, L100.0100 ####[facility] [address] [place], [address] Creatinine [Mass/Vol] 0.69 mg/dL Normal 0.55-1.02 [facility] Comment on above: Order Comment: Order Date: 07/22/24Order Info: 07-1 - CMPOrder Info: 3015-3 - TSHOrder Info: 94828-0 - IBCOrder Info: 2275-4 - MAXIM Result Comment: The validity of the calculated GFR GFRAA in patients over 70 years has not been determined. Clinical correlation is essential. Performed By: #### L 500.4050, L503.6550, L506.1000, L503.6030, L501.9520, L100.0100 ####[facility] [address] [place], [address] EST GFR - AA 120 mL/min Normal >60 [facility] Comment on above: Order Comment: Order Date: 07/22/24Order Info: 07-1 - CMPOrder Info: 3 - TSHOrder Info: 40152-5 - IBCOrder Info: 2275-11 - MAXIM Result Comment: Afri can Bulgarian GFR Calc Performed By: #### L 500.4050, L503.6550, L506.1000, L503.6030, L501.9520, L100.0100 ####[facility] [address] [place], [address] GAP 3 Low 5-15 [facility] Comment on above: Order Comment: Order Date: 07/22/24Order Info: 07- - CMPOrder Info: 3015-10 - TSHOrder Info: [id number] - IBCOrder Info: 2275-11 - MAXIM Performed By: #### L 500.4050, L503.6550, L506.1000, L503.6030, L501.9520, L100.0100 ####[facility] [address] [place], [address] GFR/1.73 sq M.predicted among non-blacks MDRD (S/P/Bld) [Vol rate/Area] 99 mL/min/{1.73_m2} Normal >60 [facility] Comment on above: Order Comment: Order Date: 07/22/24Order Info: 785-08 - CMPOrder Info: 3015-10 - TSHOrder Info: 30266-6 - IBCOrder Info: 2275-11 - MAXIM Result Comment: Non- GFR Calc Performed By: #### L 500.4050, L503.6550, L506.1000, L503.6030, L501.9520, L100.0100 ####[facility] [address] [place], [address] Globulin (S) [Mass/Vol] 3.1 g/dL Normal 2.2-4.2 [facility] Comment on above: Order Comment: Order Date: 07/22/24Order Info: 785- - CMPOrder Info: 3015-10 - TSHOrder Info: [id number] - IBCOrder Info: 2275-11 - MAXIM Performed By: #### L 500.4050, L503.6550, L506.1000, L503.6030, L501.9520, L100.0100 ####[facility] [address] [place], [address] Glucose [Mass/Vol] 78 mg/dL Normal 74-106 [facility] Comment on above: Order Comment: Order Date: 07/22/24Order Info: 785- - CMPOrder Info: 3015-10 - TSHOrder Info: [id number] - IBCOrder Info: 2275- - MAXIM Performed By: #### L 500.4050, L503.6550, L506.1000, L503.6030, L501.9520, L100.0100 ####[facility] [address] [place], [address] Potassium [Moles/Vol] 3.7 mmol/L Normal 3.5-5.1 [facility] Comment on above: Order Comment: Order Date: 07/22/24Order Info: 785- - CMPOrder Info: 3015-10 - TSHOrder Info: 24480-7 - IBCOrder Info: 2275-11 - MAXIM Performed By: #### L 500.4050, L503.6550, L506.1000, L503.6030, L501.9520, L100.0100 ####[facility] [address] [place], [address] Sodium [Moles/Vol] 136 mmol/L Normal 136-145 [facility] Comment on above: Order Comment: Order Date: 07/22/24Order Info: 785- - CMPOrder Info: 3015-10 - TSHOrder Info: 85664-3 - IBCOrder Info: 2275-11 - MAXIM Performed By: #### L 500.4050, L503.6550, L506.1000, L503.6030, L501.9520, L100.0100 ####[facility] [address] [place], [address] T PROT 6.7 g/dL Normal 6.4-8.2 [facility] Comment on above: Order Comment: Order Date: 07/22/24Order Info: 86-1 - CMPOrder Info: 3 - TSHOrder Info: [id number] - IBCOrder Info: 2275-11 - MAXIM Performed By: #### L 500.4050, L503.6550, L506.1000, L503.6030, L501.9520, L100.0100 ####[facility] [address] [place], [address] Urea nitrogen [Mass/Vol] 9 mg/dL Normal 7-18 [facility] Comment on above: Order Comment: Order Date: 07/22/24Order Info: 785-08 - CMPOrder Info: 3015-10 - TSHOrder Info: [id number] - IBCOrder Info: 2275-11 - MAXIM Performed By: #### L 500.4050, L503.6550, L506.1000, L503.6030, L501.9520, L100.0100 ####[facility] [address] [place], [address] Ferritinon 07-22-2024 Ferritin [Mass/Vol] 17 ng/mL Normal 8-252 [facility] Comment on above: Order Comment: Order Date: 07/22/24Order Info: 785- - CMPOrder Info: 3015-10 - TSHOrder Info: [id number] - IBCOrder Info: 2275-11 - MAXIM Performed By: #### L 500.4050, L503.6550, L506.1000, L503.6030, L501.9520, L100.0100 ####[facility] [address] [place], [place], [address] Iron+Iron Binding Capacityon 07-22-2024 Iron [Mass/Vol] 36 ug/dL Low 50-170 [facility] Comment on above: Order Comment: Order Date: 07/22/24Order Info: 0786- - CMPOrder Info: 3 - TSHOrder Info: 18935-0 - IBCOrder Info: 2275-11 - MAXIM Performed By: #### L 500.4050, L503.6550, L506.1000, L503.6030, L501.9520, L100.0100 ####[facility] [address] [place], [place], [address] IRON SATURATION 12.7 Low 15.0-55.0 [facility] Comment on above: Order Comment: Order Date: 07/22/24Order Info: 785-08 - CMPOrder Info: 3015-10 - TSHOrder Info: 51491-5 - IBCOrder Info: 2275-11 - MAXIM Performed By: #### L 500.4050, L503.6550, L506.1000, L503.6030, L501.9520, L100.0100 ####[facility] [address] [place], [place], [address] TIBC 284 ug/dL Normal 250-450 [facility] Comment on above: Order Comment: Order Date: 07/22/24Order Info: 0786 - CMPOrder Info: 3015-10 - TSHOrder Info: 75818-2 - IBCOrder Info: 2275-11 - MAXIM Performed By: #### L 500.4050, L503.6550, L506.1000, L503.6030, L501.9520, L100.0100 ####[facility] [address] [place], [place], [address] Thyroid Stim Hormone (TSH)on 07-22-2024 TSH 4.140 uIU/mL High 0.358-3.740 [facility] Comment on above: Order Comment: Order Date: 07/22/24Order Info: 0786-1 - CMPOrder Info: 3016-3 - TSHOrder Info: 18539-4 - IBCOrder Info: 2276-4 - MAXIM Performed By: #### L 500.4050, L503.6550, L506.1000, L503.6030, L501.9520, L100.0100 ####[facility] [address] [place], [address] Vitamin D,25 Hydroxyon 07-22 Vitamin D 25-OH 4.6 ng/mL Normal [facility] Comment on above: Order Comment: Order Date: 07/22/24 Order Info: [id number] - VITD25 Result Comment: Annetta min D 25(OH) Status Range Deficiency <20 ng/mL (50nmol/L) Insufficiency 20 - 30 ng/mL (50 - 75 nmol/L) Sufficiency 30 - 100 ng/mL (75 - 250 nmol/L) Toxicity >100 ng/mL (>250 nmol/L) Performed By: #### L 500.4050, L503.6550, L506.1000, L503.6030, L501.9520, L100.0100 #### [facility] [address] [place], [place], [address] Office Visiton 09-23-2023 Follow-up visit [id number] Shannon Dunn 1985 F Date Provider Department Center 09/23/2023 20895-OMYBCMICHAEL JIMENEZ [facility] Family History Problem Relation Age of Onset No Known Problems Mother No Known Problems Father Family Status - Relation Status Age at Mother Alive Father Alive Brother Alive Paternal Grandfather Maternal Grandmother Alive Maternal Grandfather Paternal Grandmother Level of Service:73726 [place] OFFICE/OUTPATIENT ESTABLISHED LOW MDM 20 MIN Reason for Visit and Comments: Med Refill [358252] Normal [facility] Progress Noteon 09-23-2023 Progress Note - Chronic/stable. - Continue Lamictal and Celexa. - F/u in 6 months at CPE. Normal [facility] Progress Note [facility] [address] [facility] [address] Dept: [phone] Dept Reason for Visit: Med Refill Assessment [...] and Summarized Labs: Imaging/Testing: Michael Hernandez PA-C [facility] 36on 09-22-2023 36 Patient scheduled 09/23/23 [place] [address]on 09-19-2023 36 Lmom asking pt to ca ll back to schedule for Rx refill, or to schedule through [employer] 36on 09-18-2023 36 Pt needs an appt for physical Pls call to schedule [facility] GABAPENTIN,URINEon 3 GABAPENTIN,URINE <5.0 [facility] Comment on above: Result Comment: INTE RPRETIVE [...] developed and its performance characteristics determined by [facility]. It has not been cleared or approved by the [place] Food and Drug Administration. This test was performed in a CLIA certified laboratory and is intended for clinical purposes. Performed By: [facility] [address] [place] [address] Copy Messenger: Prashanth Alfonso MD, PhD Performed By: #### G ABAU #### [facility] [address] [place] [address] T-SPOT TBon 01-22-2023 NIL[NEG]CONTROL SPOT COUNT Passed Normal [facility] Comment on above: Performed By: #### T SPOT #### [facility] [address] [place] [address] PANEL A SPOT COUNT 0 Normal [facility] Comment on above: Performed By: #### T SPOT #### [facility] [address] [place] [address] PANEL B SPOT COUNT 1 Normal [facility] Comment on above: Performed By: #### T SPOT #### [facility] [address] [place] [address] POS CONTROL SPOT COUNT Passed Normal [facility] Comment on above: Performed By: #### T SPOT #### [facility] [address] [place] [address] T-SPOT.TB INTERP Negative Normal Normal Valu e: Negative [facility] Comment on above: Result Comment: A ne [...] test. Performed By: #### T SPOT #### [facility] [address] [place] [address] BUPRENORPHINE SCREEN TO CONF IRM,URINEon 01-21-2023 BUPRENORPHINE SCREEN,INTERP. See Note Normal [facility] Comment on above: Result Comment: INTE RPRETIVE [...] not valid for forensic use. Performed By: [facility] [address] [place] [address] Copy Messenger: Prashanth Alfonso MD, PhD Performed By: #### B UPRS #### [facility] [address] [place] [address] BUPRENORPHINE SCREEN,URINE Negative Normal Cut[place] 5 [facility] Comment on above: Performed By: #### B UPRS #### [facility] [address] [place] [address] ALCOHOLon 01-20-2023 Ethanol [Mass/Vol] mg/dL Normal [place] [facility] Comment on above: Result Comment: FOR MEDICAL USE ONLY. . REF VALUES <10 Performed By: #### A LC #### [address] [address] CBC AND DIFFERENTIALon 01-20 % AUTOMATED IMMATURE GRAN 0.2 % Normal 0.0 - 0.9 [facility] Comment on above: Result Comment: Hannah ture Granulocyte Count (IG) includes promyelocytes, myelocytes and metamyelocytes but does not include bands. Percent differential counts (%) should be interpreted in the context of the absolute cell counts (cells/L). Performed By: #### C BCDF #### [address] [address] Basophils (Bld) [#/Vol] 0.06 10*3/uL Normal 0.00 - 0.10 [facility] Comment on above: Performed By: #### C BCDF #### [address] [address] Basophils/100 WBC (Bld) 1.2 % Normal 0.0 - 2.0 [facility] Comment on above: Performed By: #### C BCDF #### [address] [address] Eosinophils (Bld) [#/Vol] 0.05 10*3/uL Normal 0.00 - 0.70 [facility] Comment on above: Performed By: #### C BCDF #### [address] [address] Eosinophils/100 WBC (Bld) 1.0 % Normal 0.0 - 6.0 [facility] Comment on above: Performed By: #### C BCDF #### [address] [address] Erythrocyte distribution width (RBC) [Ratio] 12.0 % Normal 11.5 - 14.5 [facility] Comment on above: Performed By: #### C BCDF #### [address] [address] Hematocrit (Bld) [Volume fraction] 41.4 % Normal 36.0 - 46.0 [facility] Comment on above: Performed By: #### C BCDF #### [address] [address] Hemoglobin (Bld) [Mass/Vol] 13.7 g/dL Normal 12.0 - 16.0 [facility] Comment on above: Performed By: #### C BCDF #### [place] [address] Lymphocytes (Bld) [#/Vol] 1.94 10*3/uL Normal 1.20 - 4.80 [facility] Comment on above: Performed By: #### C BCDF #### [address] [address] Lymphocytes/100 WBC (Bld) 39.8 % Normal 13.0 - 44.0 [facility] Comment on above: Performed By: #### C BCDF #### [address] [address] MCHC (RBC) [Mass/Vol] 33.1 g/dL Normal 32.0 - 36.0 [facility] Comment on above: Performed By: #### C BCDF #### [address] [address] MCV (RBC) [Entitic vol] 90 fL Normal 80 - 100 [facility] Comment on above: Performed By: #### C BCDF #### [address] [address] Monocytes (Bld) [#/Vol] 0.33 10*3/uL Normal 0.10 - 1.00 [facility] Comment on above: Performed By: #### C BCDF #### [address] [address] Monocytes/100 WBC (Bld) 6.8 % Normal 2.0 - 10.0 [facility] Comment on above: Performed By: #### C BCDF #### [address] [address] Neutrophils (Bld) [#/Vol] 2.49 10*3/uL Normal 1.20 - 7.70 [facility] Comment on above: Performed By: #### C BCDF #### [address] [address] Neutrophils/100 WBC (Bld) 51.0 % Normal 40.0 - 80.0 [facility] Comment on above: Performed By: #### C BCDF #### [address] [address] Platelets (Bld) [#/Vol] 273 10*3/uL Normal 150 - 450 [facility] Comment on above: Performed By: #### C BCDF #### [address] [address] RBC 4.60 x10E12/L Normal 4.00 - 5.20 [facility] Comment on above: Performed By: #### C BCDF #### [address] [address] WBC (Bld) [#/Vol] 4.9 10*3/uL Normal 4.4 - 11.3 [place] [facility] Comment on above: Performed By: #### C BCDF #### [address] [address] COMPREHENSIVE PANELon 2022 Albumin [Mass/Vol] 4.3 g/dL Normal 3.4 - 5.0 [place] [facility] Comment on above: Performed By: #### C MP #### [address] [address] ALP [Catalytic activity/Vol] 49 U/L Normal 33 - 110 [facility] Comment on above: Performed By: #### C MP #### [address] [address] ALT [Catalytic activity/Vol] 26 U/L Normal 7 - 45 [facility] Comment on above: Result Comment: Kayla ents treated with Sulfasalazine may generate falsely decreased results for ALT. Performed By: #### C MP #### [address] [address] Anion gap [Moles/Vol] 11 mmol/L Normal 10 - 20 [facility] Comment on above: Performed By: #### C MP #### [address] [address] AST [Catalytic activity/Vol] 21 U/L Normal 9 - 39 [facility] Comment on above: Performed By: #### C MP #### [address] [address] Bilirubin [Mass/Vol] 0.5 mg/dL Normal 0.0 - 1.2 [facility] Comment on above: Performed By: #### C MP #### [address] [address] Calcium [Mass/Vol] 8.9 mg/dL Normal 8.6 - 10.3 [place] [facility] Comment on above: Performed By: #### C MP #### [address] [address] Chloride [Moles/Vol] 106 mmol/L Normal 98 - 107 [place] [facility] Comment on above: Performed By: #### C MP #### [address] [address] Creatinine [Mass/Vol] 0.70 mg/dL Normal 0.50 - 1.05 [facility] Comment on above: Performed By: #### C MP #### [address] [address] eGFR FEMALE >90 Normal >90 [facility] Comment on above: Result Comment: CALC ULATIONS OF ESTIMATED GFR ARE PERFORMED USING THE 2020 CKD-EPI STUDY REFIT EQUATION WITHOUT THE RACE VARIABLE FOR THE IDMS-TRACEABLE CREATININE METHODS. https://jasn.asnjournals.org/content//ASN.51231 66183 Performed By: #### C MP #### [address] [address] Glucose [Mass/Vol] 89 mg/dL Normal 74 - 99 [place] [facility] Comment on above: Performed By: #### C MP #### [address] [address] HCO3 (Bld) [Moles/Vol] 26 mmol/L Normal 21 - 32 [facility] Comment on above: Performed By: #### C MP #### [address] [address] Potassium [Moles/Vol] 3.8 mmol/L Normal 3.5 - 5.3 [facility] Comment on above: Performed By: #### C MP #### [address] [address] Protein [Mass/Vol] 6.8 g/dL Normal 6.4 - 8.2 [place] [facility] Comment on above: Performed By: #### C MP #### [address] [address] Sodium [Moles/Vol] 139 mmol/L Normal 136 - 145 [place] [facility] Comment on above: Performed By: #### C MP #### [address] [address] Urea nitrogen [Mass/Vol] 7 mg/dL Normal 6 - 23 [facility] Comment on above: Performed By: #### C MP #### [address] [address] HEPATITIS PANEL,ACUTE (HCFA) on 01-20-2023 HEPATITIS A AB-IGM Non-Reactive Normal NONREACTIVE [facility] Comment on above: Result Comment: Biot in interference may cause falsely decreased results. Patients taking a Biotin dose of up to 5 mg/day should refrain from taking Biotin for 24 hours before sample collection. Providers may contact their local laboratory for further information. Performed By: #### H EPA2 #### [facility] [address] [place] [address] HEPATITIS B CORE AB,IGM Non-Reactive Normal NONREACTIVE [facility] Comment on above: Result Comment: Resu lts from patients taking biotin supplements or receiving high-dose biotin therapy should be interpreted with caution due to possible interference with this test. Providers may contact their local laboratory for further information. Performed By: #### H EPA2 #### [facility] [address] [place] [address] HEPATITIS C AB Non-Reactive Normal NONREACTIVE [facility] Comment on above: Result Comment: Resu lts from patients taking biotin supplements or receiving high-dose biotin therapy should be interpreted with caution due to possible interference with this test. Providers may contact their local laboratory for further information. Performed By: #### H EPA2 #### [facility] [address] [place] [address] HEP.B SURFACE AG Non-Reactive Normal NONREACTIVE [facility] Comment on above: Result Comment: Biot in interference may cause falsely decreased results. Patients taking a Biotin dose of up to 5 mg/day should refrain from taking Biotin for 24 hours before sample collection. Providers may contact their local laboratory for further information. Performed By: #### H EPA2 #### [facility] [address] [place] [address] HIV 1/2 ANTIGEN/ANTIBODY SCR EEN WITH REFLEX TO CONFIRMATIONon 01-20-2023 HIV 1/2 AG/AB SCREEN Non-Reactive Normal NONREACTIVE R [facility] Comment on above: Result Comment: HIV Ag/Ab screen is performed using the Siemens Life800 HIV Ag/Ab Combo assay which detects the presence of HIV p24 antigen as well as antibodies to HIV-1 (Group M and O) and HIV-2. . No laboratory evidence of HIV infection. If acute HIV infection is suspected, consider testing for HIV RNA by PCR (viral load). Performed By: #### H IV #### [facility] [address] [place] [address] SYPHILIS SCREENING WITH REFL EXon 01-20-2023 SYPHILIS TOTAL AB Non-Reactive Normal NONREACTIVE [facility] Comment on above: Result Comment: No s erologic evidence of syphilis infection. If recent exposure is suspected, repeat syphilis testing is recommended in 2 to 4 weeks. Performed By: #### S YPHR #### [facility] [address] [place] [address] Lab Specimen Source Normal [facility] Comment on above: Performed By: #### S YPHR #### [facility] [address] [place] [address] Performed By: #### H IV #### [facility] [address] [place] [address] Performed By: #### H EPA2 #### [facility] [address] [place] [address] DRUG SCREEN,URINEon 01-18-20 AMPHETAMINE SCREEN,U Negative Normal NEGATIVE [place] Comment on above: Result Comment: CUTO FF LEVEL: 500 NG/ML Cross-reactivity has been reported with high concentrations of the following drugs: buproprion, chloroquine, chlorpromazine, ephedrine, mephentermine, fenfluramine, phentermine, phenylpropanolamine, pseudoephedrine, and propranolol. Performed By: #### D RUG3 #### [address] [address] BARBITURATES SCREEN,U Negative Normal NEGATIVE [place] [facility] Comment on above: Result Comment: CUTO FF LEVEL: 200 NG/ML Performed By: #### D RUG3 #### [address] [address] BENZODIAZEPINES SCREEN,U Positive Abnormal NEGATIVE [place] Comment on above: Result Comment: CUTO FF LEVEL: 200 NG/ML Performed By: #### D RUG3 #### [address] [address] CANNABINOIDS SCREEN,U Negative Normal NEGATIVE [place] [facility] Comment on above: Result Comment: CUTO FF LEVEL: 50 NG/ML Performed By: #### D RUG3 #### [address] [address] COCAINE METABOLITE SCREEN,U Negative Normal NEGATIVE [place] Comment on above: Result Comment: CUTO FF LEVEL: 150 NG/ML Performed By: #### D RUG3 #### [address] [address] DRUG SCREEN COMMENT SEE BELOW Normal [place] son/[facility] Comment on above: Result Comment: Drug screen results are presumptive and should not be used to assess compliance with prescribed medication. Contact the performing [facility] laboratory to add-on definitive confirmatory testing if [...] directors. Performed By: #### D RUG3 #### [address] [address] FENTANYL SCREEN,URINE Negative Normal NEGATIVE [place] [facility] Comment on above: Result Comment: CUTO FF LEVEL: 5 NG/ML Performed By: #### D RUG3 #### [address] [address] METHADONE SCREEN,U Negative Normal NEGATIVE [place]/[facility] Comment on above: Result Comment: CUTO FF LEVEL: 150 NG/ML The metabolite Y-lawoe-qllmynmmnhdsay (LAAM) is not detected by this method in concentrations that would be found in the urine of patients on LAAM therapy. Performed By: #### D RUG3 #### [address] [address] OPIATES SCREEN,U Negative Normal NEGATIVE [place] [facility] Comment on above: Result Comment: CUTO FF LEVEL: 300 NG/ML The opiate screen does not detect fentanyl, meperidine, or tramadol. Oxycodone is not consistently detected (refer to Oxycodone Screen, Urine result). Performed By: #### D RUG3 #### [address] [address] OXYCODONE SCREEN,U Negative Normal NEGATIVE [place]/[facility] Comment on above: Result Comment: CUTO FF LEVEL: 100 NG/ML This test will accurately detect both oxycodone and oxymorphone. Performed By: #### D RUG3 #### [address] [address] PCP SCREEN,U Negative Normal NEGATIVE [place] Comment on above: Result Comment: CUTO FF LEVEL: 25 NG/ML Cross-reactivity has been reported with dextromethorphan. Performed By: #### D RUG3 #### [address] [address] CR Hand Complete 3+ Views [facility] 01-03-2020 CR Hand Complete 3+ Views Left Patient Name: SHANNON DUNN Diagnostic Radiology Exam Date/Time 01/03/2020 15:54:15 EDT Exam CR Hand Complete 3+ Views Left Ordering Physician [id number] BOB THURMAN Accession Number [id number] CPT4 Codes 96879 () Reason For Exam pain and swelling [...] Transcribed Date and Time: 01/03/2020 6:29 Normal [facility] XR HAND LEFT (MIN 3 VIEWS)on 01-03-2020 Patient Name: SHANNON DUNN ---Diagnostic Radiology--- Exam Date/Time 01/03/2020 15:54:15 EDT Exam CR Hand Complete 3+ Views Left Ordering Physician [id number] BRUNSON Accession Number [id number] CPT4 Codes 29009 () Reason For Exam pain and swelling [...] R Transcribed Date and Time: 01/03/2020 6:29 [facility], [place] Junior, [facility] Incoming Radiology Results From [facility] - 01/03/2020 6:31 PM EDT Patient Name: SHANNON DUNN ---Diagnostic Radiology--- Exam Date/Time 01/03/2020 15:54:15 EDT Exam CR Hand Complete 3+ Views Left Ordering Physician [id number] BRUNSON Accession Number [id number] CPT4 Codes 53239 () Reason For Exam pain and swelling [...] R Transcribed Date and Time: 01/03/2020 6:29 [facility], [place] Vital Signs Date Time Vital Sign Value Performing Clinician [facility] 12-10-2024 12:53-0400 Body height 160 cm Neptali Murray MD Work Phone: [facility] 12-10-2024 12:53-0400 Body mass index (BMI) [Ratio] 18.42 kg/m2 Neptali Murray MD Work Phone: [facility] 12-10-2024 12:53-0400 Body weight 47.17 kg Neptali Murray MD Work Phone: [facility] 12-10-2024 12:53-0400 Respiratory rate 20 /min Neptali Murray MD Work Phone: [facility] 09-17-2024 10:39-0500 Body height 160 cm Neptali Murray MD Work Phone: [facility] 09-17-2024 10:39-0500 Body mass index (BMI) [Ratio] 18.42 kg/m2 Neptali Murray MD Work Phone: [facility] 09-17-2024 10:39-0500 Body temperature 98.29 [degF] Neptali Murray MD Work Phone: [facility] 09-17-2024 10:39-0500 Body weight 47.17 kg Neptali Murray MD Work Phone: [facility] 09-23-2023 08:39-0500 Body height 160 cm Michael Hernandez PA-C Work Phone: [facility] 09-23-2023 08:39-0500 Body mass index (BMI) [Ratio] 21.08 kg/m2 Michael Hernandez PA-C Work Phone: [facility] 09-23-2023 08:39-0500 Body weight 53.98 kg Michael Werneron PA-C Work Phone: [facility] 09-23-2023 08:39-0500 Diastolic blood pressure 73 mm[Hg] Michael Werneron PA-C Work Phone: [facility] 09-23-2023 08:39-0500 Heart rate 91 /min Michael Werneron PA-C Work Phone: [facility] 09-23-2023 08:39-0500 SaO2% (BldA) [Mass fraction] 99 % Michael Werneron PA-C Work Phone: [facility] 09-23-2023 08:39-0500 Systolic blood pressure 113 mm[Hg] Michael Werneron PA-C Work Phone: [facility] 08-26-2022 10:17-0500 Body height 160 cm Latrice Horner MD Work Phone: [facility] 08-26-2022 10:17-0500 Body mass index (BMI) [Ratio] 22.25 kg/m2 Latrice Horner MD Work Phone: [facility] 08-26-2022 10:17-0500 Body temperature 97.9 [degF] Latrice Horner MD Work Phone: [facility] 08-26-2022 10:17-0500 Body weight 56.97 kg Latrice Horner MD Work Phone: [facility] 08-26-2022 10:17-0500 Diastolic blood pressure 74 mm[Hg] Latrice Horner MD Work Phone: [facility] 08-26-2022 10:17-0500 Heart rate 98 /min Latrice Horner MD Work Phone: [facility] 08-26-2022 10:17-0500 SaO2% (BldA) [Mass fraction] 99 % Latrice Horner MD Work Phone: [facility] 08-26-2022 10:170500 Systolic blood pressure 117 mm[Hg] Latrice Horner MD Work Phone: [facility] Encounters Encounter Date Encounter Type Care Provider Facility Start: 01-25-2025 End: 01-25-2025 ambulatory Yokasta Miller MD Work Phone: -[facility]patient [facility] Start: 01-25-2025 End: 01-25-[address] Yokasta Miller MD -Outpatient Breast Imaging Work Phone: Start: 01-25-2025 End: 01-25-2025 ambulatory Yokasta Miller Facility:[facility] Start: 01-18-2025 End: 01-18-2025 ambulatory Yokasta Miller MD Work Phone: [facility] Work Phone: Start: 01-18-2025 End: 01-18-[address] Yokasta Miller MD -Laboratory [facility] Start: 01-18-2025 End: 01-18-2025 ambulatory Yokasta Miller Facility:[facility] Start: 12-10-2024 End: 12-10-2024 Patient encounter procedure Neptali Murray MD Work Phone: [facility] Comment on above: Pain in left hand Start: 12-10-2024 End: 12-10-2024 ambulatory NEPTALI MURRAY Facility:[facility] Start: 11-01-2024 ambulatory NEPTALI MURRAY Fa cility:[facility] Start: 11-01-2024 End: 11-01-2024 Subsequent hospital visit by physician Mri Bath (1.5t/Lg Bore 70cm) Work Phone: [facility] Comment on above: Localized swelling, mass, or lump of left upper extremity [R22.32] Start: 10-07-2024 End: 10-07-2024 Orders Only Neptali Murray MD Work Phone: [facility] Comment on above: Mass of left hand (P rimary Dx); Localized swelling, mass, or lump of left upper extremity Start: 10-05-2024 End: 10-05-2024 ambulatory Neptali Murray MD Work Phone: [facility] Comment on above: Vein ultrasound resu lts Start: 09-24-2024 ambulatory Brent Samuel Facility:[facility] Start: 09-24-2024 End: 09-24-2024 ambulatory Shayla Kauffman Facility:[facility] Start: 09-17-2024 End: 09-17-2024 Patient encounter procedure Neptali Murray MD Work Phone: [facility] Comment on above: Mass of left hand (P rimary Dx) Start: 09-17-2024 End: 09-17-2024 ambulatory NEPTALI MURRAY Facility:[facility] Start: 09-09-2024 End: 09-09-2024 Telephone encounter Neptali Murray MD Work Phone: [facility] Comment on above: Consult Start: 08-31-2024 End: 08-31-2024 ambulatory Shayla Kauffman Facility:[facility] Start: 08-31-2024 End: 08-31-2024 ambulatory Chalon [facility] Facility:[facility] Start: 08-05-2024 End: 08-05-2024 ambulatory Cassy Rosen Facility:[facility] Start: 07-22-2024 End: 07-22-2024 ambulatory [facility] Facility:[facility] Start: 09-23-2023 End: 09-23-2023 ambulatory MICHAEL HERNANDEZ [facility] Start: 09-23-2023 End: 09-23-2023 Office outpatient visit 15 minutes Michael Hernandez PA-C Work Phone: [facility] Comment on above: Adjustment reaction with anxiety and depression Start: 09-18-2023 Refill Latrice huff MD Work Phone: [facility] Comment on above: Adjustment reaction with anxiety and depression Start: 01-20-2023 ambulatory Ms. Funez Ed [facility] Facility:[id number] Start: 06-16-2023 ambulatory Ms. Armin Estrada [facility] Facility:[id number] Start: 09-26-2022 Refill Latrice huff MD Work Phone: [facility] Comment on above: Adjustment reaction with anxiety and depression Start: 08-26-2022 End: 08-26-2022 Office outpatient visit 15 minutes Latrice Horner MD Work Phone: [facility] Comment on above: Adjustment reaction with anxiety and depression (Primary Dx) Start: 01-03-2020 End: 01-03-2020 Subsequent hospital visit by physician Bob Dalton Work Phone: [facility] Comment on above: Hand pain, left; Thumb pain, left Procedures Date Procedure Procedure Detail Performing Clinician Start: 01-18-2025 Vitamin D, 25-hydrox y measurement Yokasta Miller MD Work Phone: Comment on above: Vitamin D StatusDefi ciency: <20 ng/mL (50nmol/L)Insufficiency: 20-30 ng/mL (50-75 nmol/L)Sufficiency: 30-100 ng/mL (75-250 nmol/L)Toxicity: >100 ng/mL (>250 nmol/L) Start: 01-03-2020 Radex hand minimum 3 views Bob Dalton Work Phone: Plan of Treatment Date Care Activity Detail Author Start: 2044 RSV Immunization age d 60 or older (1 - 1-dose 60+ series) RSV Immunization aged 60 or older (1 - 1-dose 60+ series) [facility] Start: 01-31-2034 Zoster Vaccines (1 o f 2) Zoster Vaccines (1 of 2) [facility] Start: 04-04-2025 Influenza vaccination Influenz a Vaccine (Season Ended) [facility] Start: 01-25-2025 MG Breast - bilatera l Screening [facility] Start: 01-25-2025 Screening mammography SCRN GISSELL M (CAD)W/LIZA BILAT [facility] Start: 12-22-2024 End: 12-22-2024 Patient encounter procedure 12/22/2024 1:00 PM EDT Office Visit [facility] [address] [place], [place] [id number] Jada Gerard DO [address] [place], [place] [id number] New Hospital Discharge F/up - Second opinion regarding hand pain with Dr. Gerard [facility] Comment on above: New Hospital Dischar ge F/up - Second opinion regarding hand pain with Dr. Gerard Start: 12-10-2024 End: 12-10-2024 Patient encounter procedure 12/10/2024 1:00 PM EDT Office Visit [facility] [address] [place], [place] [address] Neptali Murray MD [address] [place], [place] [phone] EST - L HAND MASS - MRI F/U 11/01/24 -LG [facility] Comment on above: EST - L HAND MASS - MRI F/U 11/01/24 -LG Start: 09-17-2024 End: 09-17-2024 Patient encounter procedure 09/17/2024 11:00 AM EST Office Visit [facility] [address] [place], [place] [phone] Neptali Murray MD [address] [place], [place] [phone] L HAND/ARTERY PAIN REF BY VASCULAR [facility] Comment on above: L HAND/ARTERY PAIN R EF BY VASCULAR Start: 04-04-2024 Covid-19 Vaccine ( season) Covid-19 Vaccine ( season) [facility] Start: 04-04-2024 Influenza vaccination Influenza Vacc ine (#1) [facility] Start: 03-22-2024 End: 03-22-2024 Patient encounter procedure 03/22/2024 8:40 AM EDT Office Visit [facility] [address] [place] [id number] Michael Hernandez PA-C [address] [place] [address] [facility] Start: 2024 Screening for malign ant neoplasm of breast Mammogram Screening [facility] Start: 09-23-2023 End: 09-23-2023 Patient encounter procedure 09/23/2023 8:40 AM EST Office Visit [facility] [address] [place] [phone] Michael Hernandez PA-C [address] [place] [address] [facility] Start: 04-04-2023 Influenza vaccination Influenza Vacc ine (#1) [facility] Start: 04-04-2022 Influenza vaccination Influenza Vacc ine (#1) [facility] Start: 12-10-2020 Screening for malign ant neoplasm of cervix Cervical cancer screen [place] Start: 04-04-2020 Influenza vaccination Flu vacc ine (Season Ended) [place] Start: 01-31-2014 Screening for malign ant neoplasm of cervix [facility] Start: 01-31-2005 Screening for malign ant neoplasm of cervix [facility] Start: 01-31-2003 DTaP/Tdap/Td vaccine (1 - Tdap) DTaP/Tdap/Td vaccine (1 - Tdap) [place] Start: 01-31-2003 DTaP/Tdap/Td Vaccine s (1 - Tdap) DTaP/Tdap/Td Vaccines (1 - Tdap) [facility] Start: 01-31-2003 Hepatitis B Vaccine (1 of 3 - 19+ 3-dose series) Hepatitis B Vaccine (1 of 3 - 19+ 3-dose series) [facility] Start: 01-31-2003 Urine microalbumin profile DTaP,Tdap,Td Vaccine (1 - Tdap) [facility] Start: 01-31-2002 Anxiety Screening Anxiety Screening [facility] Start: 01-31-2002 Depression Screening Depression Scre ening [facility] Start: 01-31-2002 Hepatitis C screening Hepatitis C Sc reening [facility] Start: 01-31-2002 HIV screening HIV Screening [facility] Start: 01-31-1999 HIV screening HIV screen Altagracia [place], [place] Start: 1996 Depression Screening Depression Scre ening [facility] Start: 01-31-1985 MMR Vaccines (1 of 1 - Standard series) MMR Vaccines (1 of 1 - Standard series) [facility] Start: 01-31-1985 Varicella vaccination Varicell a Vaccines (1 of 2 - 2-dose childhood series) [facility] Start: 01-31-1985 Varicella vaccine (1 of 2 - 2-dose childhood series) Varicella vaccine (1 of 2 - 2-dose childhood series) [place] Start: 1984 COVID-19 Vaccine (#1) COVID-19 Vacci ne (#1) [facility] Start: 1984 Hepatitis B Vaccines (1 of 3 - 3-dose series) Hepatitis B Vaccines (1 of 3 - 3-dose series) [facility] Start: 1984 HIV screening HIV Screening [facility] End: 11-06-2025 MR Hand - left WO contrast MRI HAND WO IVCON LEFT Radiology Routine Localized swelling, mass, or lump of left upper extremity 1 Occurrences starting 10/07/2024 until 11/06/2025 [facility] Work Phone: Comment on above: 1 Occurrences starti ng 10/07/2024 until 11/06/2025 End: 11-01-2024 MR Hand - left WO contrast [facility] Work Phone: Comment on above: 1 Occurrences starti ng 11/01/2024 until 11/01/2024 XR Hand - left PA an d Lateral and Oblique XR HAND GENERAL 3V PA/LAT/OBL LEFT Radiology Routine Mass of left hand Ordered: 09/18/2024 [facility] Work Phone: Comment on above: Ordered: 09/18/2024 Payers Date Payer Category Payer Self-pay 2023 Medicaid [id number] 2023 Medicaid [id number] 1984 Unknown [id number] [id number] 1984 Unknown [id number] 2.16.8 [id number] Unknown [id number] 2.16.8 [id number] Unknown [id number] 2.16.8 [id number] Unknown [id number] 2.16.8 [id number] Unknown [id number] 2.16.8 [id number] Unknown [id number] 2.16.8 [id number] Unknown [id number] 2.16.8 [id number] Unknown [id number] 2.16.8 [id number] Unknown [id number] 2.16.8 [id number] Social History Date Type Detail Facility Start: 01-03-2020 End: 09-17-2024 Tobacco smoking status NHIS Former smoker [place] History of tobacco use Cigarette Smoker [place] Start: 01-03-2020 End: 09-17-2024 Cigarettes smoked current (pack per day) - Reported [place] Start: 01-03-2020 Alcohol intake 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 Patient declined [facility] Are you now , , , , never or living with a partner? [facility] How often to you hav e a drink containing alcohol? Never [facility] How hard is it for y ou to pay for the very basics like food, housing, medical care, and heating Not very hard [facility] Do you feel stress - tense, restless, nervous, or anxious, or unable to sleep at night because your mind is troubled all the time - these days [OSQ] Only a little [facility] (I/We) worried [facility] (my/our) food would run out before (I/we) got money to buy more. Never true [facility] In the past 12 month s, was there a time when you were not able to pay the mortgage or rent on time? No [facility] Start: 08-26-2022 History SDOH Alcohol Frequency 1 [facility] Start: 08-26-2022 History SDOH Alcohol Std Drinks 0 [facility] Start: 08-26-2022 History SDOH Social Connections Phone 2 [facility] Start: 08-26-2022 History SDOH Social Connections Religious 98 [facility] Start: 08-26-2022 History SDOH Social Connections Living 5 [facility] Start: 08-26-2022 History SDOH Physica l Activity MPS 6 [facility] Start: 08-26-2022 History SDOH Financial 4 [facility] Start: 08-16-2022 End: 08-26-2022 Exposure to SARS-CoV-2 (event) Not sure [facility] Start: 12-04-2015 [facility] Start: 09-17-2024 Tobacco use and exposure Smoke less tobacco non-user [facility] Start: 09-18-2024 End: 12-10-2024 Alcoholic beverage intake Ex-drinker (finding) [facility] Start: 08-02-2024 [facility] Never smoked tobacco (finding) [facility] Start: 1985 Sex Assigned At Female [facility] Clinical Notes 08-26-2022 to 12-10-2024 Neptali Murray MD - 12/10/2024 4:02 PM Danyelle Cuevas, rescue boat operator - 11/01/2024 5:15 PM Neptali Toussaint MD - 09/18/2024 11:55 AM ThomAdrian delarosa, Tech - 09/17/2024 10:35 AM EST Note Date & Type Note Facility 12-10-2024 Note HNO ID: [id number] Author: NEPTALI MURRAY MD Service: ? Author [...] *The patient consented to the use of [employer] software for draft documentation of the visit consistent with [facility]?s Notice of Privacy Practices.* 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 09-18-2024 Note HNO ID: [id number] Author: NEPTALI MURRAY MD Service: ? Author Type: Physician Type: Progress Notes Filed: 09/18/2024 11:59 Note Text: Hand Surgery New Pt Note HPI: 39-year-old female [id number] not working No diabetes, no smoking She thinks that in 2019 this thenar mass arose and it has been worked up at [facility] Never had an MRI Never had an [...] she is scheduled for vein ultrasound at [facility] and I think she should get this [...] words or phrases that may be inappropriate.* [facility] 09-18-2024 History of Presen t illness Narrative Hand Surgery New Pt Note HPI: 39-year-old female pjphe-igpc-[id number] not working No diabetes, no smoking She thinks that in 2019 this thenar mass arose and it has been worked up at [facility] Never had an MRI Never had an [...] she is scheduled for vein ultrasound at [facility] and I think she should get this [...] clots, bleeding disorders. documented in this encounter [facility] 09-17-2024 Note HNO ID: [id number] Author: ADRIAN GUILLORY Tech Service: ? Author Type: Band Master Type: Progress Notes Filed: 09/18/2024 11:59 Note [...] Negative for excessive bleeding, clots, bleeding disorders. [facility] 09-09-2024 Telephone encount er Note APPT ,MADE [facility] 09-09-2024 Telephone encount er Note ----- Message [...] other than patient: no Best contact number: [phone] Thank you, Shayla Gunderson September 09, 2024 12:55 PM [facility] 09-09-2024 Miscellaneous Notes Formattin g of [...] other than patient: no Best contact number: [phone] Thank you, Shayla Gunderson September 09, 2024 12:55 PM documented in this encounter [facility] 09-23-2023 Evaluation + Plan note Associated Problem(s): 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 - Continue Lamictal and Celexa. - F/u in 6 months at [facility]. [facility] 09-23-2023 Miscellaneous Notes Associate d Problem(s): 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 - Continue Lamictal and Celexa. - F/u in 6 months at [facility]. documented in this encounter [facility] 09-23-2023 History of Presen t illness Narrative Images from the original note were not included. [facility] [address] [place] [address] [address] [facility] [address] Dept: [phone] Dept Reason for Visit: Med Refill Assessment and Plan 1. Adjustment reaction with anxiety and depression Assessment & Plan: - Chronic/stable. - Continue Lamictal and Celexa. - F/u in 6 months at [facility]. Orders: - lamoTRIgine (LaMICtal) 200 MG tablet; Take 1 tablet (200 mg) by mouth daily., Starting Fri09/23/2023, Normal Follow up in about 6 months [...] Michael Hernandez PA-C documented in this encounter [facility] 09-22-2023 Telephone encount er Note Patient scheduled 09/23/23 [facility] 09-22-2023 Miscellaneous Notes Formattin g of this note might be different from the original. Patient scheduled 09/23/23 Lmom asking pt to call back to schedule for Rx refill, [facility] Pt needs an appt for physical Pls call to schedule documented in this encounter [facility] 09-19-2023 Telephone encount er Note Lmom asking pt to call back to schedule for Rx refill, or to schedule through [facility] 09-18-2023 Telephone encount er Note Pt needs an appt for physical Pls call to schedule [facility] 08-26-2022 Evaluation + Plan note Associated Problem(s): Adjustment reaction with anxiety and depression Chronic, stable Tolerates the lamotrigine and citalopram Checked the labs last year Patient is self pay. Will repeat next year Adjust the dose as indicated [facility] 08-26-2022 Miscellaneous Notes Associate d Problem(s): Adjustment reaction with anxiety and depression Chronic, stable Tolerates the lamotrigine and citalopram Checked the labs last year Patient is self pay. Will repeat next year Adjust the dose as indicated documented in this encounter [facility] 08-26-2022 History of Presen t illness Narrative [...] 200 MG tablet documented in this encounter [facility] Evaluation note Diagnosis Adjustment reaction with anxiety and depression Adjustment disorder with mixed anxiety and depressed mood [facility] Diagnosis Adjustment reaction with anxiety and depression Adjustment disorder with mixed anxiety and depressed mood [facility]* Diagnosis Adjustment reaction with anxiety and depression- Primary Adjustment disorder with mixed anxiety and depressed mood documented [facility]* Diagnosis Adjustment reaction with anxiety and depression Adjustment disorder with mixed anxiety and depressed mood [facility]* Diagnosis Mass of left hand- Primary documented in this encounter [facility] note* Diagnosis Mass of left hand- Primary Localized swelling, mass, or lump of left upper extremity [facility] Diagnosis Localized swelling, mass, or lump of left upper extremity [facility]* Diagnosis Pain in left hand [facility] noteNo assessment information availableWCincinnati [facility]'s [facility] Work Phone: Reason for referral (narrative)No reason for referral information availableWCincinnati Children's [facility] Work Phone: Reason for visit Narrative* MRI/CT (Routine) - Closed Specialty Diagnoses / Procedures Referred By Contac t Referred To Contact MR IMAGING Diagnoses Localized swelling, mass, or lump of left upper extremity Procedures MRI HAND WO IVCON LEFT MRI UPPER EXTREMITY OTH THAN JT W/O CONTR MATRL Neptali Murray MD [address] [facility] [address] [place] [address] Phone: tel: fax: [place] [id number] Referral ID Status Reason Start Date Expiration Date V isits Requested Visits Authorized [id number] Closed Auto-Generate d Referral 10/19/2024 12/18/2024 1 1 [facility] Assessments Diagnosis Hand pain, left Pain in limb Thumb pain, left Advance Directives No Advanced Directives Records FoundDocuments on File Type Date Recorded 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 Advance Directives and Living Will Power of 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 Summary Purpose Family History No Family History Records Found Relationship Condition Age at Onset Recorded Date/T izabela grandfather Coronary artery disease Unknown uncle Coronary artery disease Unknown Malignant neoplasm Unknown grandmother Hypertension Unknown Coronary artery disease Unknown uncle Diabetes mellitus Unknown aunt Diabetes mellitus Unknown Chief Complaint and Reason for Visit Chief Complaint Admit Date SCREENING January 25, 2025 1:40 pm Additional Source Comments INFORMATION SOURCE (unrecogn ized section and content) DATE CREATED AUTHOR 01/04/2020 [employer] DATE CREATED AUTHOR AUTHOR'S ORGANIZ ATION 01/23/2023 [facility] DATE CREATED AUTHOR AUTHOR'S ORGANIZ ATION 09/23/2023 [employer] [facility] DATE CREATED AUTHOR AUTHOR'S ORGANIZ ATION 12/12/2024 [facility] DATE CREATED AUTHOR AUTHOR'S ORGANIZ ATION 01/31/2025 [facility] Reason for Visit (unrecogniz ed section and content) Reason Comments Med Refill Reason Comments Med Refill Medications are pend ing. No questions or concerns when asked. Reason Comments Consult Reason Comments New Pain Reason Comments Pain Established Patient Swelling Care Teams (unrecognized sec tion and content) Dressing Room Attendant Relationship Specialty Start Date End Date Latrice Horner MD [address] [place] [address] [address] [place] [address] PCP - General 11/02/15 Dressing Room Attendant Relationship Specialty Start Date End Date Latrice Horner MD [address] [place] [address] [address] [place] [address] PCP - General 11/02/15 Dressing Room Attendant Relationship Specialty Start Date End Date Latrice Horner MD [facility], [address] [place] [address] PCP - General 11/02/15 Dressing Room Attendant Relationship Specialty Start Date End Date Latrice Horner MD [facility], [address] [place] [address] PCP - General 11/02/15 Dressing Room Attendant Relationship Specialty Start Date End Date Yokasta Miller MD [address] [facility] [address] [place] [address] PCP - General Internal Medicine 09/09/24 Dressing Room Attendant Relationship Specialty Start Date End Date Yokasta Miller MD [address] [facility] [address] [place] [address] PCP - General Internal Medicine 09/09/24 Dressing Room Attendant Relationship Specialty Start Date End Date Yokasta Miller MD [address] [facility] [address] [place] [address] PCP - General Internal Medicine 09/09/24 Dressing Room Attendant Relationship Specialty Start Date End Date Yokasta Miller MD [address] [facility] [address] [place] [address] PCP - General Internal Medicine 09/09/24 Dressing Room Attendant Relationship Specialty Start Date End Date Yokasta Miller MD [address] [facility] [address] [place] [address] PCP - General Internal Medicine 09/09/24 Team Status: Active Member Role Status Manish Miller MD Primary Care Provider Active Team Status: Inactive Member Role Status Manish Miller MD Primary Care Provider Active St art: January 18, 2025 End: January 18, 2025 Yokasta Miller MD Attending Provider Active Start : January 18, 2025 End: January 18, 2025 Yokasta Miller MD Referring Provider Active Start : January 18, 2025 End: January 18, 2025 Team Status: Active Member Role/Relationship Status Manish Miller MD Primary Care Provider Active Team Status: Inactive Member Role/Relationship Status Manish Miller MD Primary Care Provider Active St art: January 18, 2025 End: January 18, 2025 Yokasta Miller MD Attending Provider Active Start : January 18, 2025 End: January 18, 2025 Yokasta Miller MD Referring Provider Active Start : January 18, 2025 End: January 18, 2025 Team Status: Inactive Member Role/Relationship Status Manish Miller MD Primary Care Provider Active St art: January 25, 2025 End: January 25, 2025 Yokasta Miller MD Attending Provider Active Start : January 25, 2025 End: January 25, 2025 Yokasta Miller MD Referring Provider Active Start : January 25, 2025 End: January 25, 2025 Source Comments (unrecognize d section and content) In the event this informatio n is protected by the Federal Confidentiality of Alcohol and Drug Abuse Patient Records regulations: The Federal rules restrict any use of the information to criminally investigate or prosecute any alcohol or drug abuse patient.[facility] the event this information is protected by the Federal Confidentiality of Alcohol and Drug Abuse Patient Records regulations: The Federal rules restrict any use of the information to criminally investigate or prosecute any alcohol or drug abuse patient.[facility] the event this information is protected by the Federal Confidentiality of Alcohol and Drug Abuse Patient Records regulations: The Federal rules restrict any use of the information to criminally investigate or prosecute any alcohol or drug abuse patient.[facility] Hospital[facility] the event this information is protected by the Federal Confidentiality of Alcohol and Drug Abuse Patient Records regulations: The Federal rules restrict any use of the information to criminally investigate or prosecute any alcohol or drug abuse patient.[facility] Hospital[facility] the event this information is protected by the Federal Confidentiality of Alcohol and Drug Abuse Patient Records regulations: The Federal rules restrict any use of the information to criminally investigate or prosecute any alcohol or drug abuse patient.[facility] the event this information is protected by the Federal Confidentiality of Alcohol and Drug Abuse Patient Records regulations: The Federal rules restrict any use of the information to criminally investigate or prosecute any alcohol or drug abuse patient.[facility] Goals (unrecognized section and content) Goals may be documented in a n alternate sectionGoals may be documented in an alternate section FOR RECORDS PERTAINING TO PATIENTS WHO ARE [...] BE BASED ON THE PRIMARY CLINICAL RECORDS. [facility] [employer] [facility]. provides no warranty or guarantee of the accuracy or completeness of information in this document.
[2025-02-07 16:08] LABS: HPV APTIMA, High Risk Negative (Negative)
== END | disposition home or self-care (01) ==
LOC: LABSPEC 14:07
PROVIDERS: PCP Family Medicine
DX: Z12.4 Encounter for screening for malignant neoplasm of cervix (principal)
CPT/HCPCS: 87624; 88175; G0145

== ENCOUNTER → 2025-02-10 | Outpatient (CLI) | payer MEDICAID, SELFPAY ==
--- NOTE | 2025-02-10 09:20 | BI_ITS ---
EXAM: DIAG MAMM W/CAD, UNILAT 02/10/2025 CLINICAL HISTORY: F, Age 40 y/o , UNCLEAR IMAGE ON LEFT BREAST MAMMOGRAM TECHNIQUE: DIAG MAMM W/CAD, UNILAT. 90 degree lateral and compression views were obtained. COMPARISON: Prior exam(s) dated January 25, 2025. FINDINGS: TISSUE DENSITY: The breasts are extremely dense, which lowers the sensitivity of mammography. Bilateral Breast Mammographic Findings: No significant masses, calcifications or other abnormalities are identified. No suspicious masses, areas of developing architectural distortion, or suspicious calcifications. There has been no significant interval change. BI/DIAG MAMM W/CAD, UNILAT IMPRESSION: No suspicious abnormality is seen. OVERALL FINAL ASSESSMENT BI-RADS 0: INCOMPLETE - NEED ADDITIONAL IMAGING EVALUATION. RECOMMENDATION: Ultrasound Recommended A letter with findings and recommendations will be mailed to the patient. Reading Location: [place] [address]
--- NOTE | 2025-02-10 09:58 | US_ITS ---
PROCEDURE: BREAST LIMITED UNILATERAL 02/10/2025 REASON FOR EXAM: F, Age 40 y/o , ABNORMAL MAMMOGRAM LEFT BREAST COMPARISON: Prior mammogram done earlier in the day.. TECHNIQUE: BREAST LIMITED UNILATERAL FINDINGS: There is a 1 cm x 0.6 cm x 0.3 cm benign-appearing lymph node at the 8 o'clock position of the breast at 3-4 cm from the nipple. US/Breast Limited Unilateral IMPRESSION: Mammographic finding corresponds to a 1 cm x 0.6 cm x 0.3 cm benign-appearing l ymph node at the 8 o'clock position of the breast at 3-4 cm from the nipple. BI-RADS 2: BENIGN RECOMMEND ANNUAL MAMMOGRAPHIC SCREENING. RECOMMENDATION: Routine annual follow-up in 1 Year Reading Location: [place] [address]
--- OUTSIDE RECORDS SUMMARY | 2025-02-10 10:34 | XMS RPT_ITS | CCD ---
Author Organization [facility] Care Team Providers Care Instructor Of Spanish Name Role Phone Latrice Horner Primary Care Provider Janell, Ms. Armin Mejia Attending Chloe Maciel, Ms. Armin Mejia Attending Chloe Horner MD, [facility] Primary Care Provider HEIDI HERNANDEZ Attending Unavailable LATRICE HORNER [facility] Care Unavailable Evens RAIN, Latrice S Primary Care Provider Maico RAIN, Yokasta Primary Care Provider [phone] NEPTALI MURRAY Attending Unavailabl e MAICO, CHALON Primary Care Unavailable NEPTALI MURRAY Referring Unavailabl e MAICO, CHALON Primary Care Unavailable NEPTALI MURRAY Attending Unavailabl e SELF Referring Unavailable MAICO, CHALON Primary Care Unavailable Maico RAIN, Yokasta Primary Care Provider Yokasta Miller MD Attending Provider Maico RAIN, Yokasta Referring Provider [phone] Maico, Chalon Primary Care Unavailable Cassy Rosen Attending Unavailable Maico, Chalon Referring Unavailable Maico, Chalon Primary Care Unavailable Kauffman, Shayla Referring Unavailable Brent Samuel Attending Unavailable KauffmanSkyler haywoodison Attending Unavailable Maico, Chalon Primary Care Unavailable Maico, Chalon Referring Unavailable [employer] FLOOR ATTENDANT, Sherman Referring Unavailable [employer] FLOOR ATTENDANT, Sherman Attending Unavailable Maico, Chalon Primary Care Unavailable Maico, Chalon Attending Unavailable Maico, Chalon Referring Unavailable Maico, Chalon Primary Care Unavailable Maico, Chalon Primary Care Unavailable Maico, Chalon Attending Unavailable Maico, Chalon Referring Unavailable Maico, Chalon Primary Care Unavailable Maico, Chalon Attending Unavailable Maico, Chalon Referring Unavailable Maico, Chalon Primary Care Unavailable Ginny Milleron Attending Unavailable Maico, Chalon Referring Unavailable Maico, Chalon Primary Care Unavailable Maico, Ginnyon Attending Unavailable Maico, Chalon Referring Unavailable Kauffman, Shayla Attending Unavailable Kauffman, Shayla Referring Unavailable Maico, Chalon Primary Care Unavailable Neptali Murray Consulting Unavailabl e Allergies Allergy Classification Reported Allergen(s) Allergy Type Date of Onset Reaction(s) Facility (12 sources) Cefadroxil; Translations: [CEFADROXIL] Drug Allergy 6 Hives, Itching, Unknown [facility] [place] (2 sources) Azithromycin Drug Allergy 5 [facility] (1 source) Azithromycin Drug Allergy 5 [facility] Repository Medications Current Medications Medication Drug [...] (16 sources) Mood Stabilizer, Anti-epileptic Agent Start: 024 take 1 tablet by mouth once daily [...] release(DR/EC) Discontinued 40 mg PO daily 90 August 05, 2024 1:00am August 31, 2024 [...] 08-05-2024 Episodic Other aftercare (3 sources) Other oysterman (current) drug therapy; Translations: [Other oysterman (current) drug therapy] Onset: 01-20-2023 Episodic Other [...] Test Name Value Interpretation Reference Range Facility SCRN MAMM (CAD)W/LIZA BILATo n 01-25-2025 SCRN MAMM (CAD)W/LIZA BILAT [facility] Imaging Services [address] [place] [id number] SCRN MAMM (CAD)W/LIZA BILAT MR#: [id number] Acct: [id number] Name: SHANNON DNUN Rep #: [id number] : 1985 F 39 From: Carol Jewell i, MD PCP: Dr. Yokasta Miller MD Status: DEP CLI Study: SCRN MAMM (CAD)W/LIZA BILAT Date of Exam: 01/03 11/26 Exam# [id number] Ordering Dr: Yokasta Miller MD ADDENDUM by Dr. Carol Roth MD on 02/01/25 at 1234 Additional diagnostic imaging is recommended of the left breast with diagnostic left breast mammogram and ultrasound. No mammographic evidence of malignancy in the right breast. OVERALL FINAL ASSESSMENT BI-RADS 0: INCOMPLETE - NEED ADDITIONAL IMAGING EVALUATION. RECOMMENDATION: Additional Views/call backs Reading Location: WOP-ADQVLX-VI-Betty 02/01/25 1323 Date cc: Dr. Yokasta Miller MD * Signed EXAM: SCRN MAMM (CAD)W/LIZA BILAT DATE: 01/25/2025 CLINICAL HISTORY: F, Age 39 y/o , SCREENING TECHNIQUE: SCRN MAMM (CAD)W/LIZA BILAT COMPARISON: None available FINDINGS: TISSUE DENSITY: The breast tissue is heterogeneously dense, which may obscure small masses. Bilateral Breast Mammographic Findings: Left breast: There is questionable architectural distortion in the central left breast mid depth on the CC view. There is an asymmetry in the inner left breast mid depth on the CC view. Right breast: No suspicious masses, calcifications or other abnormalities are identified. BI/SCRN MAMM (CAD)W/LIZA BILAT IMPRESSION: Additional diagnostic imaging is recommended of the left breast with diagnostic left breast mammogram and ultrasound. No mammographic evidence of malignancy in the right breast. OVERALL FINAL ASSESSMENT BI-RADS 0: INCOMPLETE - NEED ADDITIONAL IMAGING EVALUATION. RECOMMENDATION: Additional Views/call backs A letter with findings and recommendations will be mailed to the patient. Reading Location: [id number] CC: Dr. Yokasta Miller MD Academic Counselor: Signed Normal [facility] Calculated very low density lipoprotein (VLDL) cholesterol measurementOrdered By: Yokasta Miller on 01-18-2025 Calculated very low density lipoprotein (VLDL) cholesterol measurement 17 mg/dL 5-40 [facility] LDL calc ser/plasOrdered By: Yokasta Miller on 01-18-2025 Cholesterol in LDL [Mass/Vol] 93 mg/dL [facility] Comment on above: Pwyuumfuzs=408-716 m g/dL & Higher Hoaq=955 mg/dL or greater Lipid Profileon 01-18-2025 CHOL:HDL 2.74 Normal [facility] Comment on above: Order Comment: Order Date: 01/18/25 Order Info: [id number] - LIPID Order Info: 3016-3 - TSH Performed By: #### L 500.4100, L501.9520 #### [facility] [address] [facility] [place], [place], [address] Cholesterol [Mass/Vol] 173 mg/dL Normal <=200 [facility] Comment on above: Order Comment: Order Date: 01/18/25 Order Info: [id number] - LIPID Order Info: 3016-3 - TSH Result Comment: Chol esterol level, Desirable <200 mg/dL Borderline high cholesterol 200-239 mg/dL High cholesterol >=240 mg/dL Recommendations of the NCEP Adult Treatment Panel for the following risk-cutoff thresholds for the [place] population. Performed By: #### L 500.4100, L501.9520 #### [facility] [address] [place], [address] Cholesterol in HDL [Mass/Vol] 63 mg/dL Normal [facility] Comment on above: Order Comment: Order Date: 01/18/25 Order Info: [id number] - LIPID Order Info: 3016-3 - TSH Result Comment: Maricruz onal Cholesterol Education Program (NCEP) guidelines: <40 mg/dL: Low HDL-cholesterol (major risk factor for CHD) >= 60 mg/dL: High HDL-cholesterol (negative risk factor for CHD) HDL-cholesterol is affected by a number of factors, e.g. smoking, exercise, hormones, sex and age. Performed By: #### L 500.4100, L501.9520 #### [facility] [address] [place], [address] Cholesterol in LDL [Mass/Vol] 93 mg/dL Normal [facility] Comment on above: Order Comment: Order Date: 01/18/25 Order Info: [id number] - LIPID Order Info: 3016-3 - TSH Result Comment: Bord hrqfng=918-997 mg/dL Higher Ogaa=719 mg/dL or greater Performed By: #### L 500.4100, L501.9520 #### [facility] [address] [place], [address] Cholesterol in VLDL [Mass/Vol] 17 mg/dL Normal 5-40 [facility] Comment on above: Order Comment: Order Date: 01/18/25 Order Info: [id number] - LIPID Order Info: 3016-3 - TSH Performed By: #### L 500.4100, L501.9520 #### [facility] [address] [place], [address] Triglyceride [Mass/Vol] 83 mg/dL Normal [facility] Comment on above: Order Comment: Order Date: 01/18/25 Order Info: [id number] - LIPID Order Info: 3016-3 - TSH Result Comment: The drugs N-Acetylcysteine and Metamizole may falsely depress this assay. Normal range: <150 mg/dL Borderline High: 150-199 mg/dL High: 200-499 mg/dL Very High: >500 mg/dL Performed By: #### L 500.4100, L501.9520 #### [facility] [address] [place], [address] Screening total cholesterol/ high density lipoprotein (HDL) cholesterol ratioOrdered By: Yokasta Miller on 01-18-2025 Cholesterol.total/Chol esterol in HDL [Mass ratio] 2.74 {ratio} [facility] Serum or plasma cholesterol in HDL measurement (mass/volume)Ordered By: Yokasta Miller on 01-18-2025 Cholesterol in HDL [Mass/Vol] 63 mg/dL >40 [facility] Comment on above: National Cholesterol Education Program (NCEP) guidelines:<40 mg/dL: Low HDL-cholesterol (major risk factor for CHD)>= 60 mg/dL: High HDL-cholesterol (negative risk factor for CHD)HDL-cholesterol is affected by a number of factors, e.g. smoking, exercise, hormones, sex and age. Serum or plasma cholesterol measurement (mass/volume)Ordered By: Yokasta Miller on 01-18-2025 Cholesterol [Mass/Vol] 173 mg/dL <201 [facility] Comment on above: Cholesterol level, D esirable <200 mg/dLBorderline high cholesterol 200-239 mg/dLHigh cholesterol >=240 mg/dLRecommendations of the NCEP Adult Treatment Panel for the following risk-cutoff thresholds for the [place] population. TSH DL <= 0.005 mIU/L QnOrde red By: Yokasta Miller on 01-18-2025 TSH Qn 3.630 uIU/mL 0.300-4.200 [facility] Thyroid Stim Hormone (TSH)on 01-18-2025 TSH 3.630 uIU/mL Normal 0.300-4.200 [facility] Comment on above: Order Comment: Order Date: 01/18/25 Order Info: [id number] - LIPID Order Info: 3016-3 - TSH Performed By: #### L 500.4100, L501.9520 #### [facility] [address] [place], [place], [address] Triglycerides measurementOrd ered By: Yokasta Miller on 01-18-2025 Triglyceride [Mass/Vol] 83 mg/dL <199 [facility] Comment on above: The drugs N-Acetylcy steine and Metamizole may falsely depress this assay. Normal range: <150 mg/dLBorderline High: 150-199 mg/dLHigh: 200-499 mg/dLVery High: >500 mg/dL Vitamin D,25 Hydroxyon 01-18 Vitamin D 25-OH 19.2 ng/mL Low 30-100 [facility] Comment on above: Order Comment: Order Date: 01/18/25 Order Info: [id number] - LIPID Order Info: 3016-3 - TSH Result Comment: Annetta min D Status Deficiency: <20 ng/mL (50nmol/L) Insufficiency: 20-30 ng/mL (50-75 nmol/L) Sufficiency: 30-100 ng/mL (75-250 nmol/L) Toxicity: >100 ng/mL (>250 nmol/L) Performed By: #### L 506.1001 #### [facility] [address] [place], [address] CNOVon 12-10-2024 CNOV Office Visit (AGHWW1 ) SHANNON DUNN ([id number]) 1985 F Date Time Provider Department 12/10/24 1:00 PM [facility] During your visit today, we recorded the [...] and words (more content not included)... Normal [facility] MRI HAND WO IVCON LTon 11-01 [...] soft tissue mass or other acute finding. Academic Counselor: PSCB Transcribe Date/Time: Nov 06 2024 10:24A Dictated by : GUILLERMINA YANCEY MD This examination was interpreted and the report reviewed and electronically signed by: GUILLERMINA YANCEY MD on Nov 06 2024 10:31AM EST [id number] Normal [facility] Venous Duplex US, Unilateral on 09-24-2024 Venous Duplex US, Unilateral [facility] [address] [place] [address] Venous Duplex US, Unilateral 09/24/24 1357 MR#: [id number] Acct: [id number] Name: SHANNON DUNN Rep #: [id number] : 1985 39 From: Brent Samuel MD [...] Referring Physician: Yokasta Miller Performed By: Yvette Sloan, T ??? 09/28/24813 Date Brent Samuel MD CC: ROJELIO Bryan; Dr. Yokasta Miller MD Date Dictated: 09/24/24 1357 Date Transcribed: 09/28/24813 Academic Counselor: Signed [facility] 09-17-2024 [facility] Office Visit (AGHWW1 ) SHANNON DUNN ([id number]) 1985 F Date Time Provider Department 09/17/24 [...] Surgery New Pt Note HPI: 39-year-old female qnlwj-xpzw-qqjpobzz not working No diabetes, no smoking She thinks that in 2019 this thenar mass arose and it has been worked up at [facility] Never had an MRI Never had an [...] she is scheduled for vein ultrasound at [place] and I think she should get this [...] - Fully Assessed Reason for Visit: New [474966] Pain [78] Primary Visit Diagnosis:Mass of left hand [R22.32] Order(s):XR HAND GENERAL 3V PA/LAT/OBL LEFT [4235092] Order #: [id number] Prescriptions as of 09/18/2024 - LAMOTRIGINE (LAMICTAL ODT ORAL) Take by mouth. Problem List As Of Date 09/17/2024 Noted Resolved Myopia [H52.10] 12/04/2015 Letter Text Encounter Status:Closed by NEPTALI MURRAY on 09/18/24 [facility] Veronika 09-09-2024 [facility] Telephone (AGPOB1) SHANNON DUNN ([id number]) 1985 F Date Time Provider Department 09/09/24 NEPTALI MURRAY AGPOB1 During your visit today, we recorded the following information about you: Jacquelyn Typist Jolly Dobson 09/09/2024 2:26 PM Signed ----- [...] other than patient: no Best contact number: [phone] Thank you, Shayla Gunderson September 09, 2024 [...] Encounter Status:Closed by JOLLY MERINO on 09/09/24 [facility] MR/Sesar 08-31-2024 MR/DHRUV.VANI [facility] [address] [place] [address] OFFICE VISIT Date of Service: 08/31/24 MR#: [id number] Acct: [id number] Name: SHANNON DUNN Rep #: [id number] : 1985 Provider: ROJELIO Bryan Age/Sex: 39/F Location: [facility] [place] Status: Signed Intake Vital Signs 08/05/24 10:10 [...] medports/PICCs, radiation. 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 Normal [facility] Thyroid Stim Hormone (TSH)on 08-31-2024 TSH 4.020 uIU/mL High 0.358-3.740 [facility] Comment on above: Order Comment: Order Date: 08/09/24 Order Info: 3016-3 - TSH Performed By: #### L 501.9520 #### [facility] [address] [place], [address] Gastroenterology Visit Repor ton 08-05-2024 Gastroenterology Visit Report [facility] [address] [place] [address] OFFICE VISIT Date of Service: 08/05/24 MR#: [id number] Acct: [id number] Name: SHANNON DUNN Rep #: [id number] : 1985 Provider: ROJELIO Kirkpatrick Age/Sex: 39/F Location: [facility] [place].[facility]I Status: Signed Intake Vital Signs 08/05/24 [...] no prior hx of EGD or colonoscopy. [facility] Medical History Stomach irritation Varicose veins [...] to the office today for establishment with [facility]. Pt was referred here to us [...] her sy (more content not included)... [facility] [place] [facility] [place] Normal [facility] Comment on above: Order Comment: VIT K #[id number] PLASMA PFL RF Result Comment: TEST RESULTS LIMITS Vitamin K1 0.23 ng/mL 0.10-2.20 TESTING PERFORMED AT [facility]. ORIGINAL REPORT ON FILE IN LAB CONTAINS ADDITIONAL TEST SITE INFORMATION. Performed By: #### L 801.1541 #### [facility] [address] [place], [address] CBC W/Diff, Automatedon 12 Absolute Lymph 2.42 X10 3/uL Normal 0.83-4.51 [facility] Comment on above: Order Comment: Order Date: 07/22/24 Order Info: 018- - CBCD Performed By: #### L 500.4050, L503.6550, L506.1000, L503.6030, L501.9520, L100.0100 #### [facility] [address] [place], [address] Absolute Neut 2.6 X10 3/uL Normal 2.0-7.7 [facility] Comment on above: Order Comment: Order Date: 07/22/24 Order Info: 018- - CBCD Performed By: #### L 500.4050, L503.6550, L506.1000, L503.6030, L501.9520, L100.0100 #### [facility] [address] [place], [address] Basophils/100 WBC (Bld) 1.3 % High 0-1 [facility] Comment on above: Order Comment: Order Date: 07/22/24 Order Info: 018- - CBCD Performed By: #### L 500.4050, L503.6550, L506.1000, L503.6030, L501.9520, L100.0100 #### [facility] [address] [place], [address] Eosinophils/100 WBC (Bld) 2.0 % Normal 0-5 [facility] Comment on above: Order Comment: Order Date: 07/22/24 Order Info: 018- - CBCD Performed By: #### L 500.4050, L503.6550, L506.1000, L503.6030, L501.9520, L100.0100 #### [facility] [address] [place], [place], [address] Erythrocyte distribution width (RBC) [Ratio] 12.0 % Normal 11.6-14.6 [facility] Comment on above: Order Comment: Order Date: 07/22/24 Order Info: 0184-1 - CBCD Performed By: #### L 500.4050, L503.6550, L506.1000, L503.6030, L501.9520, L100.0100 #### [facility] [address] [place], [place], [address] Hematocrit (Bld) [Volume fraction] 40.1 % Normal 37-47 [facility] Comment on above: Order Comment: Order Date: 07/22/24 Order Info: 0184- - CBCD Performed By: #### L 500.4050, L503.6550, L506.1000, L503.6030, L501.9520, L100.0100 #### [facility] [address] [place], [place], [address] Hemoglobin (Bld) [Mass/Vol] 13.3 g/dL Normal 12.0-15.0 [facility] Comment on above: Order Comment: Order Date: 07/22/24 Order Info: 0184-1 - CBCD Performed By: #### L 500.4050, L503.6550, L506.1000, L503.6030, L501.9520, L100.0100 #### [facility] [address] [place], [place], [address] IG% 0.400 Normal 0.0-0.9 [facility] Comment on above: Order Comment: Order Date: 07/22/24 Order Info: 0184-1 - CBCD Result Comment: IG% - Immature Granulocytes (promyelocytes, myelocytes and metamyelocytes) > 1% indicates that a LEFT SHIFT is Present. Performed By: #### L 500.4050, L503.6550, L506.1000, L503.6030, L501.9520, L100.0100 #### [facility] [address] [place], [address] Lymphocytes/100 WBC (Bld) 43.4 % High 19-41 [facility] Comment on above: Order Comment: Order Date: 07/22/24 Order Info: 018- - CBCD Performed By: #### L 500.4050, L503.6550, L506.1000, L503.6030, L501.9520, L100.0100 #### [facility] [address] [place], [address] MCH (RBC) [Entitic mass] 30.5 pg Normal 27.0-32.0 [facility] Comment on above: Order Comment: Order Date: 07/22/24 Order Info: 018- - CBCD Performed By: #### L 500.4050, L503.6550, L506.1000, L503.6030, L501.9520, L100.0100 #### [facility] [address] [place], [address] MCHC (RBC) [Mass/Vol] 33.2 g/dL Normal 32-36 [facility] Comment on above: Order Comment: Order Date: 07/22/24 Order Info: 018- - CBCD Performed By: #### L 500.4050, L503.6550, L506.1000, L503.6030, L501.9520, L100.0100 #### [facility] [address] [place], [address] MCV (RBC) [Entitic vol] 92.0 fL Normal 81-99 [facility] Comment on above: Order Comment: Order Date: 07/22/24 Order Info: 018- - CBCD Performed By: #### L 500.4050, L503.6550, L506.1000, L503.6030, L501.9520, L100.0100 #### [facility] [address] [place], [address] Monocytes/100 WBC (Bld) 7.3 % Normal 0-10 [facility] Comment on above: Order Comment: Order Date: 07/22/24 Order Info: 0184-1 - CBCD Performed By: #### L 500.4050, L503.6550, L506.1000, L503.6030, L501.9520, L100.0100 #### [facility] [address] [place], [address] Neutrophils/100 WBC (Bld) 45.6 % Low 47-70 [facility] Comment on above: Order Comment: Order Date: 07/22/24 Order Info: 0184- - CBCD Performed By: #### L 500.4050, L503.6550, L506.1000, L503.6030, L501.9520, L100.0100 #### [facility] [address] [place], [address] Nucleated RBC (Bld) [#/Vol] 0 10*3/uL Normal 0-5 [facility] Comment on above: Order Comment: Order Date: 07/22/24 Order Info: 0184- - CBCD Performed By: #### L 500.4050, L503.6550, L506.1000, L503.6030, L501.9520, L100.0100 #### [facility] [address] [place], [address] Platelet mean volume (Bld) [Entitic vol] 9.9 fL Normal 6.2-12.0 [facility] Comment on above: Order Comment: Order Date: 07/22/24 Order Info: 0184-1 - CBCD Performed By: #### L 500.4050, L503.6550, L506.1000, L503.6030, L501.9520, L100.0100 #### [facility] [address] [place], [address] Platelets (Bld) [#/Vol] 255 10*3/uL Normal 150-450 [facility] Comment on above: Order Comment: Order Date: 07/22/24 Order Info: 0184-1 - CBCD Performed By: #### L 500.4050, L503.6550, L506.1000, L503.6030, L501.9520, L100.0100 #### [facility] [address] [place], [address] RBC (Bld) [#/Vol] 4.36 10*6/uL Normal 4.2-5.4 [facility] Comment on above: Order Comment: Order Date: 07/22/24 Order Info: 0184-1 - CBCD Performed By: #### L 500.4050, L503.6550, L506.1000, L503.6030, L501.9520, L100.0100 #### [facility] [address] [place], [address] RDW SD 40.8 fl Normal 35.1-43.9 [facility] Comment on above: Order Comment: Order Date: 07/22/24 Order Info: 0184-1 - CBCD Performed By: #### L 500.4050, L503.6550, L506.1000, L503.6030, L501.9520, L100.0100 #### [facility] [address] [place], [address] WBC (Bld) [#/Vol] 5.6 10*3/uL Normal 4.4-11.0 [facility] Comment on above: Order Comment: Order Date: 07/22/24 Order Info: 0184-1 - CBCD Performed By: #### L 500.4050, L503.6550, L506.1000, L503.6030, L501.9520, L100.0100 #### [facility] [address] [place], [address] Comprehensive Metabolic Prof ilon 07-22-2024 Albumin [Mass/Vol] 3.6 g/dL Normal 3.2-5.0 [facility] Comment on above: Order Comment: Order Date: 07/22/24Order Info: 785- - CMPOrder Info: 3015-10 - TSHOrder Info: 02871-5 - IBCOrder Info: 2275-11 - MAXIM Performed By: #### L 500.4050, L503.6550, L506.1000, L503.6030, L501.9520, L100.0100 ####[facility] [address] [place], [address] Albumin/Globulin [Mass ratio] 1.2 {ratio} Normal 0.9-2.4 [facility] Comment on above: Order Comment: Order Date: 07/22/24Order Info: 785- - CMPOrder Info: 3015-10 - TSHOrder Info: 48462-0 - IBCOrder Info: 2275-11 - MAXIM Performed By: #### L 500.4050, L503.6550, L506.1000, L503.6030, L501.9520, L100.0100 ####[facility] [address] [place], [address] ALK P 53 U/L Normal 45-117 [facility] Comment on above: Order Comment: Order Date: 07/22/24Order Info: 785-08 - CMPOrder Info: 3015-10 - TSHOrder Info: 62481-8 - IBCOrder Info: 2275-11 - MAXIM Performed By: #### L 500.4050, L503.6550, L506.1000, L503.6030, L501.9520, L100.0100 ####[facility] [address] [place], [address] ALT [Catalytic activity/Vol] 30 U/L Normal 13-56 [facility] Comment on above: Order Comment: Order Date: 07/22/24Order Info: 785- - CMPOrder Info: 3015-10 - TSHOrder Info: [id number] - IBCOrder Info: 2275-11 - MAXIM Performed By: #### L 500.4050, L503.6550, L506.1000, L503.6030, L501.9520, L100.0100 ####[facility] [address] [place], [address] AST [Catalytic activity/Vol] 15 U/L Normal 15-37 [facility] Comment on above: Order Comment: Order Date: 07/22/24Order Info: 86-1 - CMPOrder Info: 3 - TSHOrder Info: [id number] - IBCOrder Info: 2275-11 - MAXIM Performed By: #### L 500.4050, L503.6550, L506.1000, L503.6030, L501.9520, L100.0100 ####[facility] [address] [place], [address] Bilirubin [Mass/Vol] 0.30 mg/dL Normal 0.20-1.00 [facility] Comment on above: Order Comment: Order Date: 07/22/24Order Info: 785-1 - CMPOrder Info: 3015-10 - TSHOrder Info: [id number] - IBCOrder Info: 2275-11 - MAXIM Result Comment: For patients on eltrombopag therapy, use of Dimension Fluker TBIL is not recommended. Performed By: #### L 500.4050, L503.6550, L506.1000, L503.6030, L501.9520, L100.0100 ####[facility] [address] [place], [address] BUN/CRE 13.0 RATIO Normal 10-20 [facility] Comment on above: Order Comment: Order Date: 07/22/24Order Info: 785-1 - CMPOrder Info: 3 - TSHOrder Info: [id number] - IBCOrder Info: 4 - MAXIM Performed By: #### L 500.4050, L503.6550, L506.1000, L503.6030, L501.9520, L100.0100 ####[facility] [address] [place], [address] CA,Total 8.6 mg/dL Normal 8.5-10.1 [facility] Comment on above: Order Comment: Order Date: 07/22/24Order Info: [id number] - CMPOrder Info: [id number] - TSHOrder Info: [id number] - IBCOrder Info: 2275-4 - MAXIM Performed By: #### L 500.4050, L503.6550, L506.1000, L503.6030, L501.9520, L100.0100 ####[facility] [address] [place], [address] Chloride [Moles/Vol] 108 mmol/L High 98-107 [facility] Comment on above: Order Comment: Order Date: 07/22/24Order Info: 07 - CMPOrder Info: 3 - TSHOrder Info: [id number] - IBCOrder Info: 2275-4 - MAXIM Performed By: #### L 500.4050, L503.6550, L506.1000, L503.6030, L501.9520, L100.0100 ####[facility] [address] [place], [address] CO2 [Moles/Vol] 25.0 mmol/L Normal 21.0-32.0 [facility] Comment on above: Order Comment: Order Date: 07/22/24Order Info: [id number] - CMPOrder Info: 3 - TSHOrder Info: [id number] - IBCOrder Info: 227-4 - MAXIM Performed By: #### L 500.4050, L503.6550, L506.1000, L503.6030, L501.9520, L100.0100 ####[facility] [address] [place], [address] Creatinine [Mass/Vol] 0.69 mg/dL Normal 0.55-1.02 [facility] Comment on above: Order Comment: Order Date: 07/22/24Order Info: [id number] - CMPOrder Info: 3 - TSHOrder Info: [id number] - IBCOrder Info: 2275-11 - MAXIM Result Comment: The validity of the calculated GFR GFRAA in patients over 70 years has not been determined. Clinical correlation is essential. Performed By: #### L 500.4050, L503.6550, L506.1000, L503.6030, L501.9520, L100.0100 ####[facility] [address] [place], [address] EST GFR - AA 120 mL/min Normal >60 [facility] Comment on above: Order Comment: Order Date: 07/22/24Order Info: [id number] - CMPOrder Info: 3 - TSHOrder Info: [id number] - IBCOrder Info: 2275-11 - MAXIM Result Comment: Afri can [place] GFR Calc Performed By: #### L 500.4050, L503.6550, L506.1000, L503.6030, L501.9520, L100.0100 ####[facility] [address] [place], [address] GAP 3 Low 5-15 [facility] Comment on above: Order Comment: Order Date: 07/22/24Order Info: 0786-1 - CMPOrder Info: 3015-10 - TSHOrder Info: [id number] - IBCOrder Info: 2275-11 - MAXIM Performed By: #### L 500.4050, L503.6550, L506.1000, L503.6030, L501.9520, L100.0100 ####[facility] [address] [place], [address] GFR/1.73 sq M.predicted among non-blacks MDRD (S/P/Bld) [Vol rate/Area] 99 mL/min/{1.73_m2} Normal >60 [facility] Comment on above: Order Comment: Order Date: 07/22/24Order Info: 0786-1 - CMPOrder Info: 3015-10 - TSHOrder Info: [id number] - IBCOrder Info: 2275-11 - MAXIM Result Comment: Non- GFR Calc Performed By: #### L 500.4050, L503.6550, L506.1000, L503.6030, L501.9520, L100.0100 ####[facility] [address] [place], [address] Globulin (S) [Mass/Vol] 3.1 g/dL Normal 2.2-4.2 [facility] Comment on above: Order Comment: Order Date: 07/22/24Order Info: 785-08 - CMPOrder Info: [id number] - TSHOrder Info: [id number] - IBCOrder Info: 2275-11 - MAXIM Performed By: #### L 500.4050, L503.6550, L506.1000, L503.6030, L501.9520, L100.0100 ####[facility] [address] [place], [address] Glucose [Mass/Vol] 78 mg/dL Normal 74-106 [facility] Comment on above: Order Comment: Order Date: 07/22/24Order Info: 07 - CMPOrder Info: 3015-10 - TSHOrder Info: [id number] - IBCOrder Info: 2275-11 - MAXIM Performed By: #### L 500.4050, L503.6550, L506.1000, L503.6030, L501.9520, L100.0100 ####[facility] [address] [place], [address] Potassium [Moles/Vol] 3.7 mmol/L Normal 3.5-5.1 [facility] Comment on above: Order Comment: Order Date: 07/22/24Order Info: 07- - CMPOrder Info: 3015-10 - TSHOrder Info: [id number] - IBCOrder Info: 2275-11 - MAXIM Performed By: #### L 500.4050, L503.6550, L506.1000, L503.6030, L501.9520, L100.0100 ####[facility] [address] [place], [address] Sodium [Moles/Vol] 136 mmol/L Normal 136-145 [facility] Comment on above: Order Comment: Order Date: 07/22/24Order Info: 785-1 - CMPOrder Info: 3 - TSHOrder Info: [id number] - IBCOrder Info: 2275-11 - MAXIM Performed By: #### L 500.4050, L503.6550, L506.1000, L503.6030, L501.9520, L100.0100 ####[facility] [address] [place], [address] T PROT 6.7 g/dL Normal 6.4-8.2 [facility] Comment on above: Order Comment: Order Date: 07/22/24Order Info: 785- - CMPOrder Info: 3015-10 - TSHOrder Info: [id number] - IBCOrder Info: 2275-11 - MAXIM Performed By: #### L 500.4050, L503.6550, L506.1000, L503.6030, L501.9520, L100.0100 ####[facility] [address] [place], [address] Urea nitrogen [Mass/Vol] 9 mg/dL Normal 7-18 [facility] Comment on above: Order Comment: Order Date: 07/22/24Order Info: 785-1 - CMPOrder Info: 3 - TSHOrder Info: [id number] - IBCOrder Info: 2275-11 - MAXIM Performed By: #### L 500.4050, L503.6550, L506.1000, L503.6030, L501.9520, L100.0100 ####[facility] [address] [place], [address] Ferritinon 07-22-2024 Ferritin [Mass/Vol] 17 ng/mL Normal 8-252 [facility] Comment on above: Order Comment: Order Date: 07/22/24Order Info: 0786-1 - CMPOrder Info: 3015-10 - TSHOrder Info: [id number] - IBCOrder Info: 2275-11 - MAXIM Performed By: #### L 500.4050, L503.6550, L506.1000, L503.6030, L501.9520, L100.0100 ####[facility] [address] [place], [address] Iron+Iron Binding Capacityon 07-22-2024 Iron [Mass/Vol] 36 ug/dL Low 50-170 [facility] Comment on above: Order Comment: Order Date: 07/22/24Order Info: 785-08 - CMPOrder Info: 3015-10 - TSHOrder Info: [id number] - IBCOrder Info: 2275-11 - MAXIM Performed By: #### L 500.4050, L503.6550, L506.1000, L503.6030, L501.9520, L100.0100 ####[facility] [address] [place], [address] IRON SATURATION 12.7 Low 15.0-55.0 [facility] Comment on above: Order Comment: Order Date: 07/22/24Order Info: 0786- - CMPOrder Info: 3015-10 - TSHOrder Info: [id number] - IBCOrder Info: 2275-11 - MAXIM Performed By: #### L 500.4050, L503.6550, L506.1000, L503.6030, L501.9520, L100.0100 ####[facility] [address] [place], [address] TIBC 284 ug/dL Normal 250-450 [facility] Comment on above: Order Comment: Order Date: 07/22/24Order Info: 0786- - CMPOrder Info: 3015-10 - TSHOrder Info: [id number] - IBCOrder Info: 2275-11 - MAXIM Performed By: #### L 500.4050, L503.6550, L506.1000, L503.6030, L501.9520, L100.0100 ####[facility] [address] [place], [address] Thyroid Stim Hormone (TSH)on 07-22-2024 TSH 4.140 uIU/mL High 0.358-3.740 [facility] Comment on above: Order Comment: Order Date: 07/22/24Order Info: 0786-1 - CMPOrder Info: 3016-3 - TSHOrder Info: [id number] - IBCOrder Info: 2275-11 - MAXIM Performed By: #### L 500.4050, L503.6550, L506.1000, L503.6030, L501.9520, L100.0100 ####[facility] [address] [place], [address] Vitamin D,25 Hydroxyon 07-22 Vitamin D 25-OH 4.6 ng/mL Normal [facility] Comment on above: Order Comment: Order Date: 07/22/24Order Info: [id number] - VITD25 Result Comment: Annetta min D 25(OH) Status Range Deficiency <20 ng/mL (50nmol/L) Insufficiency 20 - 30 ng/mL (50 - 75 nmol/L) Sufficiency 30 - 100 ng/mL (75 - 250 nmol/L) Toxicity >100 ng/mL (>250 nmol/L) Performed By: #### L 500.4050, L503.6550, L506.1000, L503.6030, L501.9520, L100.0100 ####[facility] [address] [place], [address] Office Visiton 09-23-2023 Follow-up visit [id number] Shannon Dunn 1985 F Date Provider Department Center 09/23/2023 20857-MOFYNHEIDI HERNANDEZ [facility] Family History Problem Relation Age of Onset No Known Problems Mother No Known Problems Father Family Status - Relation Status Age at Mother Alive Father Alive Brother Alive Paternal Grandfather Maternal Grandmother Alive Maternal Grandfather Paternal Grandmother Level of Service:[address] [place] OFFICE/OUTPATIENT ESTABLISHED LOW MDM 20 MIN Reason for Visit and Comments: Med Refill [448050] [facility] Progress Noteon 09-23-2023 Progress Note - Chronic/stable. - Continue Lamictal and Celexa. - F/u in 6 months at [facility]. Normal [facility] Progress Note [facility] [address] [facility] [address] [facility] [address] Dept: [phone] Dept Reason for Visit: Med Refill Assessment and Plan 1. Adjustment reaction with anxiety and depression Assessment & Plan: - Chronic/stable. - Continue Lamictal and Celexa. - F/u in 6 months at [facility]. Orders: - lamoTRIgine (LaMICtal) 200 MG tablet; [...] normal. Data Reviewed and Summarized Labs: Imaging/Testing: Heidi Hernandez PA-C [place] [address]on 09-22-2023 36 Patient scheduled 09/23/23 [place] [address]on 09-19-2023 36 Lmom asking pt to ca ll back to schedule for Rx refill, or to schedule through [facility] [place] [address]on 09-18-2023 36 Pt needs an appt for physical Pls call to schedule [facility] GABAPENTIN,URINEon 3 GABAPENTIN,URINE <5.0 Normal [facility] Comment on above: Result Comment: INTE [...] developed and its performance characteristics determined by [facility]. It has not been cleared or approved by the [place] Food and Drug Administration. This test was performed in a CLIA certified laboratory and is intended for clinical purposes. Performed By: [facility] [address] [place] [id number] [employer]: Prashanth Alfonso MD, PhD Performed By: #### G ABAU #### [facility] [address] [place] [address] T-SPOT TBon 01-22-2023 NIL[NEG]CONTROL SPOT COUNT Passed Normal [facility] Comment on above: Performed By: #### T SPOT #### [facility] [address] [place] [address] PANEL A SPOT COUNT 0 Normal [place] on/[facility] Comment on above: Performed By: #### T SPOT #### [facility] [address] [place] [address] PANEL B SPOT COUNT 1 Normal [place] on/[facility] Comment on above: Performed By: #### T SPOT #### [facility] [address] [place] [address] POS CONTROL SPOT COUNT Passed Normal [facility] Comment on above: Performed By: #### T SPOT #### [facility] [address] [place] [address] T-SPOT.TB INTERP Negative Normal Normal Valu e: Negative [facility] Comment on above: Result Comment: A ne [...] test. Performed By: #### T SPOT #### [facility] [address] [place] [address] BUPRENORPHINE SCREEN TO CONF IRM,URINEon 01-21-2023 BUPRENORPHINE SCREEN,INTERP. See Note Normal [facility] Comment on above: Result Comment: INTE [...] not valid for forensic use. Performed By: [facility] [address] [place] [address] Manager Retail Store: Prashanth Alfonso MD, PhD Performed By: #### B UPRS #### [facility] [address] [place] [address] BUPRENORPHINE SCREEN,URINE Negative Normal [place] [address] [facility] Comment on above: Performed By: #### B UPRS #### [address] [place] [address] ALCOHOLon 01-20-2023 Ethanol [Mass/Vol] mg/dL Normal [place] [facility] Comment on above: Result Comment: FOR MEDICAL USE ONLY. . REF VALUES <10 Performed By: #### A LC #### [place] [address] CBC AND DIFFERENTIALon 01-20 % AUTOMATED IMMATURE GRAN 0.2 % Normal 0.0 - 0.9 [facility] Comment on above: Result Comment: Hannah ture Granulocyte Count (IG) includes promyelocytes, myelocytes and metamyelocytes but does not include bands. Percent differential counts (%) should be interpreted in the context of the absolute cell counts (cells/L). Performed By: #### C BCDF #### [place] [address] Basophils (Bld) [#/Vol] 0.06 10*3/uL Normal 0.00 - 0.10 [facility] Comment on above: Performed By: #### C BCDF #### [place] [address] Basophils/100 WBC (Bld) 1.2 % Normal 0.0 - 2.0 [place] Comment on above: Performed By: #### C BCDF #### [place] [address] Eosinophils (Bld) [#/Vol] 0.05 10*3/uL Normal 0.00 - 0.70 [place] Comment on above: Performed By: #### C BCDF #### [address] [address] Eosinophils/100 WBC (Bld) 1.0 % Normal 0.0 - 6.0 [place] Comment on above: Performed By: #### C BCDF #### [place] [address] Erythrocyte distribution width (RBC) [Ratio] 12.0 % Normal 11.5 - 14.5 [facility] Comment on above: Performed By: #### C BCDF #### [place] [address] Hematocrit (Bld) [Volume fraction] 41.4 % Normal 36.0 - 46.0 [facility] Comment on above: Performed By: #### C BCDF #### [place] [address] Hemoglobin (Bld) [Mass/Vol] 13.7 g/dL Normal 12.0 - 16.0 [place] Comment on above: Performed By: #### C BCDF #### [place] [address] Lymphocytes (Bld) [#/Vol] 1.94 10*3/uL Normal 1.20 - 4.80 [place] Comment on above: Performed By: #### C BCDF #### [address] [address] Lymphocytes/100 WBC (Bld) 39.8 % Normal 13.0 - 44.0 [place] Comment on above: Performed By: #### C BCDF #### [address] [place] [address] MCHC (RBC) [Mass/Vol] 33.1 g/dL Normal 32.0 - 36.0 [place] Comment on above: Performed By: #### C BCDF #### [address] [address] MCV (RBC) [Entitic vol] 90 fL Normal 80 - 100 [place] Comment on above: Performed By: #### C BCDF #### [address] [address] Monocytes (Bld) [#/Vol] 0.33 10*3/uL Normal 0.10 - 1.00 [place] Comment on above: Performed By: #### C BCDF #### [address] [address] Monocytes/100 WBC (Bld) 6.8 % Normal 2.0 - 10.0 [place] Comment on above: Performed By: #### C BCDF #### [address] [address] Neutrophils (Bld) [#/Vol] 2.49 10*3/uL Normal 1.20 - 7.70 [place] Comment on above: Performed By: #### C BCDF #### [address] [address] Neutrophils/100 WBC (Bld) 51.0 % Normal 40.0 - 80.0 [place] Comment on above: Performed By: #### C BCDF #### [address] [address] Platelets (Bld) [#/Vol] 273 10*3/uL Normal 150 - 450 [place] Comment on above: Performed By: #### C BCDF #### [address] [address] RBC 4.60 x10E12/L Normal 4.00 - 5.20 [place]/P or [facility] Comment on above: Performed By: #### C BCDF #### [address] [address] WBC (Bld) [#/Vol] 4.9 10*3/uL Normal 4.4 - 11.3 [place] [facility] Comment on above: Performed By: #### C BCDF #### [address] [address] COMPREHENSIVE PANELon 2022 Albumin [Mass/Vol] 4.3 g/dL Normal 3.4 - 5.0 [place] [facility] Comment on above: Performed By: #### C MP #### [address] [address] ALP [Catalytic activity/Vol] 49 U/L Normal 33 - 110 [facility] Comment on above: Performed By: #### C MP #### [address] [address] ALT [Catalytic activity/Vol] 26 U/L Normal 7 - 45 [facility] Comment on above: Result Comment: Kayla ents treated with Sulfasalazine may generate falsely decreased results for ALT. Performed By: #### C MP #### [address] [address] Anion gap [Moles/Vol] 11 mmol/L Normal 10 - 20 [facility] inson/[facility] Comment on above: Performed By: #### C MP #### [address] [address] AST [Catalytic activity/Vol] 21 U/L Normal 9 - 39 [facility] Comment on above: Performed By: #### C MP #### [address] [address] Bilirubin [Mass/Vol] 0.5 mg/dL Normal 0.0 - 1.2 [place] Comment on above: Performed By: #### C MP #### [address] [address] Calcium [Mass/Vol] 8.9 mg/dL Normal 8.6 - 10.3 [place] [facility] Comment on above: Performed By: #### C MP #### [address] [address] Chloride [Moles/Vol] 106 mmol/L Normal 98 - 107 [place]/[facility] Comment on above: Performed By: #### C MP #### [address] [address] Creatinine [Mass/Vol] 0.70 mg/dL Normal 0.50 - 1.05 [place] Comment on above: Performed By: #### C MP #### [address] [address] eGFR FEMALE >90 Normal >90 [place]/[facility] Comment on above: Result Comment: CALC ULATIONS OF ESTIMATED GFR ARE PERFORMED USING THE 2020 CKD-EPI STUDY REFIT EQUATION WITHOUT THE RACE VARIABLE FOR THE IDMS-TRACEABLE CREATININE METHODS. https://jasn.asnjournals.org/content/early/ASN.50588 86373 Performed By: #### C MP #### [address] [address] Glucose [Mass/Vol] 89 mg/dL Normal 74 - 99 [place] on/[facility] Comment on above: Performed By: #### C MP #### [address] [address] HCO3 (Bld) [Moles/Vol] 26 mmol/L Normal 21 - 32 [place]/[facility] Comment on above: Performed By: #### C MP #### [address] [address] Potassium [Moles/Vol] 3.8 mmol/L Normal 3.5 - 5.3 [place] inson/Por [facility] Comment on above: Performed By: #### C MP #### [address] [address] Protein [Mass/Vol] 6.8 g/dL Normal 6.4 - 8.2 [place] [facility] Comment on above: Performed By: #### C MP #### [place] [id number] [place] [address] Sodium [Moles/Vol] 139 mmol/L Normal 136 - 145 [place] on/[facility] Comment on above: Performed By: #### C MP #### [address] [address] Urea nitrogen [Mass/Vol] 7 mg/dL Normal 6 - 23 [facility] Comment on above: Performed By: #### C MP #### [address] [address] HEPATITIS PANEL,ACUTE (HCFA) on 01-20-2023 HEPATITIS A AB-IGM Non-Reactive Normal NONREACTIVE [facility] Comment on above: Result Comment: Biot in interference may cause falsely decreased results. Patients taking a Biotin dose of up to 5 mg/day should refrain from taking Biotin for 24 hours before sample collection. Providers may contact their local laboratory for further information. Performed By: #### H EPA2 #### [facility] [address] [place] [id number] HEPATITIS B CORE AB,IGM Non-Reactive Normal NONREACTIVE [facility] Comment on above: Result Comment: Resu lts from patients taking biotin supplements or receiving high-dose biotin therapy should be interpreted with caution due to possible interference with this test. Providers may contact their local laboratory for further information. Performed By: #### H EPA2 #### [facility] [address] [place] [address] HEPATITIS C AB Non-Reactive Normal NONREACTIVE [facility] Comment on above: Result Comment: Resu lts from patients taking biotin supplements or receiving high-dose biotin therapy should be interpreted with caution due to possible interference with this test. Providers may contact their local laboratory for further information. Performed By: #### H EPA2 #### [facility] [address] [place] [address] HEP.B SURFACE AG Non-Reactive Normal NONREACTIVE [facility] son/[facility] Comment on above: Result Comment: Biot in interference may cause falsely decreased results. Patients taking a Biotin dose of up to 5 mg/day should refrain from taking Biotin for 24 hours before sample collection. Providers may contact their local laboratory for further information. Performed By: #### H EPA2 #### [facility] [address] [place] [id number] HIV 1/2 ANTIGEN/ANTIBODY SCR EEN WITH REFLEX TO CONFIRMATIONon 01-20-2023 HIV 1/2 AG/AB SCREEN Non-Reactive Normal NONREACTIVE R [facility] Comment on above: Result Comment: HIV Ag/Ab screen is performed using the Siemens FanTrailllCardiaLen HIV Ag/Ab Combo assay which detects the presence of HIV p24 antigen as well as antibodies to HIV-1 (Group M and O) and HIV-2. . No laboratory evidence of HIV infection. If acute HIV infection is suspected, consider testing for HIV RNA by PCR (viral load). Performed By: #### H IV #### [facility] [address] [place] [id number] SYPHILIS SCREENING WITH REFL EXon 01-20-2023 SYPHILIS TOTAL AB Non-Reactive Normal NONREACTIVE [facility] Comment on above: Result Comment: No s erologic evidence of syphilis infection. If recent exposure is suspected, repeat syphilis testing is recommended in 2 to 4 weeks. Performed By: #### S YPHR #### [facility] [address] [place] [id number] Lab Specimen Source Normal [facility] Comment on above: Performed By: #### S YPHR #### [facility] [address] [place] [id number] Performed By: #### H IV #### [facility] [address] [place] [id number] Performed By: #### H EPA2 #### [facility] [address] [place] [address] DRUG SCREEN,URINEon 01-18-20 23 AMPHETAMINE SCREEN,U Negative Normal NEGATIVE [facility] Comment on above: Result Comment: CUTO FF LEVEL: 500 NG/ML Cross-reactivity has been reported with high concentrations of the following drugs: buproprion, chloroquine, chlorpromazine, ephedrine, mephentermine, fenfluramine, phentermine, phenylpropanolamine, pseudoephedrine, and propranolol. Performed By: #### D RUG3 #### [address] [address] BARBITURATES SCREEN,U Negative Normal NEGATIVE [place] [facility] Comment on above: Result Comment: CUTO FF LEVEL: 200 NG/ML Performed By: #### D RUG3 #### [address] [address] BENZODIAZEPINES SCREEN,U Positive Abnormal NEGATIVE [place]/[facility] Comment on above: Result Comment: CUTO FF LEVEL: 200 NG/ML Performed By: #### D RUG3 #### [address] [address] CANNABINOIDS SCREEN,U Negative Normal NEGATIVE [place] [facility] Comment on above: Result Comment: CUTO FF LEVEL: 50 NG/ML Performed By: #### D RUG3 #### [place] [address] COCAINE METABOLITE SCREEN,U Negative Normal NEGATIVE [place]/[facility] Comment on above: Result Comment: CUTO FF LEVEL: 150 NG/ML Performed By: #### D RUG3 #### [place] [address] DRUG SCREEN COMMENT SEE BELOW Normal [facility] son/[facility] Comment on above: Result Comment: Drug screen results are presumptive and should not be used to assess compliance with prescribed medication. Contact the performing [facility] laboratory to add-on definitive confirmatory testing if [...] directors. Performed By: #### D RUG3 #### [place] [address] FENTANYL SCREEN,URINE Negative Normal NEGATIVE [place] [facility] Comment on above: Result Comment: CUTO FF LEVEL: 5 NG/ML Performed By: #### D RUG3 #### [place] [address] METHADONE SCREEN,U Negative Normal NEGATIVE [place] on/[facility] Comment on above: Result Comment: CUTO FF LEVEL: 150 NG/ML The metabolite N-xqfbt-mljrtdntyywcmo (LAAM) is not detected by this method in concentrations that would be found in the urine of patients on LAAM therapy. Performed By: #### D RUG3 #### [place] [address] OPIATES SCREEN,U Negative Normal NEGATIVE [place] /[facility] Comment on above: Result Comment: CUTO FF LEVEL: 300 NG/ML The opiate screen does not detect fentanyl, meperidine, or tramadol. Oxycodone is not consistently detected (refer to Oxycodone Screen, Urine result). Performed By: #### D RUG3 #### [place] [address] OXYCODONE SCREEN,U Negative Normal NEGATIVE [place] on/Por [facility] Comment on above: Result Comment: CUTO FF LEVEL: 100 NG/ML This test will accurately detect both oxycodone and oxymorphone. Performed By: #### D RUG3 #### [place] [address] PCP SCREEN,U Negative Normal NEGATIVE [facility] Comment on above: Result Comment: CUTO FF LEVEL: 25 NG/ML Cross-reactivity has been reported with dextromethorphan. Performed By: #### D RUG3 #### [place] [address] CR Hand Complete 3+ Views [place] 01-03-2020 CR Hand Complete 3+ Views Left Patient Name: SHANNON DUNN Diagnostic Radiology Exam Date/Time 01/03/2020 15:54:15 EDT Exam CR Hand Complete 3+ Views Left Ordering Physician [id number] ZHANE THURMAN Accession Number [id number] CPT4 Codes 38330 () Reason For Exam pain and swelling [...] Transcribed Date and Time: 01/03/2020 6:29 Normal [facility] XR HAND LEFT (MIN 3 VIEWS)on 01-03-2020 Patient Name: SHANNON DUNN ---Diagnostic Radiology--- Exam Date/Time 01/03/2020 15:54:15 EDT Exam CR Hand Complete 3+ Views Left Ordering Physician [id number] BRUNSON Accession Number [id number] CPT4 Codes 62136 () Reason For Exam pain and swelling [...] R Transcribed Date and Time: 01/03/2020 6:29 [facility] [place] Junior, [facility] Incoming Radiology Results From [facility] - 01/03/2020 6:31 PM EDT Patient Name: SHANNON DUNN ---Diagnostic Radiology--- Exam Date/Time 01/03/2020 15:54:15 EDT Exam CR Hand Complete 3+ Views Left Ordering Physician [id number] JairZHANE HANSEN Accession Number [id number] CPT4 Codes 79698 () Reason For Exam pain and swelling [...] R Transcribed Date and Time: 01/03/2020 6:29 [employer] Vital Signs Date Time Vital Sign Value Performing Clinician [facility] 12-10-2024 12:53-0400 Body height 160 cm Neptali Murray MD Work Phone: [facility] 12-10-2024 12:53-0400 Body mass index (BMI) [Ratio] 18.42 kg/m2 Neptali Murray MD Work Phone: [facility] 12-10-2024 12:53-0400 Body weight 47.17 kg Neptali Murray MD Work Phone: [facility] 12-10-2024 12:53-0400 Respiratory rate 20 /min Neptali Murray MD Work Phone: [facility] 09-17-2024 10:39-0500 Body height 160 cm Neptali Murray MD Work Phone: [facility] 09-17-2024 10:39-0500 Body mass index (BMI) [Ratio] 18.42 kg/m2 Neptali Murray MD Work Phone: [facility] 09-17-2024 10:39-0500 Body temperature 98.29 [degF] Neptali Murray MD Work Phone: [facility] 09-17-2024 10:39-0500 Body weight 47.17 kg Neptali Murray MD Work Phone: [facility] 09-23-2023 08:39-0500 Body height 160 cm Heidi Hernandez PA-C Work Phone: [facility] [place] 09-23-2023 08:39-0500 Body mass index (BMI) [Ratio] 21.08 kg/m2 Heidi Hernandez PA-C Work Phone: [facility] 09-23-2023 08:39-0500 Body weight 53.98 kg Heidi Hernandez PA-C Work Phone: [facility] 09-23-2023 08:39-0500 Diastolic blood pressure 73 mm[Hg] Heidi Hernandez PA-C Work Phone: [facility] 09-23-2023 08:39-0500 Heart rate 91 /min Heidi Hernandez PA-C Work Phone: [facility] 09-23-2023 08:39-0500 SaO2% (BldA) [Mass fraction] 99 % Heidi Hernandez PA-C Work Phone: [facility] [place] 09-23-2023 08:39-0500 Systolic blood pressure 113 mm[Hg] Heidi Hernandez PA-C Work Phone: [facility] [place] 08-26-2022 10:17-0500 Body height 160 cm Latrice Horner MD Work Phone: [facility] [place] 08-26-2022 10:17-0500 Body mass index (BMI) [Ratio] 22.25 kg/m2 Latrice Horner MD Work Phone: [facility] [place] 08-26-2022 10:17-0500 Body temperature 97.9 [degF] Latrice Horner MD Work Phone: [facility] [place] 08-26-2022 10:17-0500 Body weight 56.97 kg Latrice Horner MD Work Phone: [facility] 08-26-2022 10:17-0500 Diastolic blood pressure 74 mm[Hg] Latrice Horner MD Work Phone: [facility] 08-26-2022 10:17-0500 Heart rate 98 /min Latrice Horner MD Work Phone: [facility] 08-26-2022 10:17-0500 SaO2% (BldA) [Mass fraction] 99 % Latrice Horner MD Work Phone: [facility] 08-26-2022 10:17-0500 Systolic blood pressure 117 mm[Hg] Latrice Horner MD Work Phone: [facility] Encounters Encounter Date Encounter Type Care Provider Facility Start: 02-10-2025 ambulatory Yokasta [facility] Facility:[facility] Start: 2025 ambulatory [facility] Start: 01-25-2025 End: 01-25-2025 ambulatory Yokasta Miller MD Work Phone: -[facility] Start: 01-25-2025 End: 01-25-[address] Yokasta Miller MD -Outpatient Breast Imaging Work Phone: Start: 01-25-2025 End: 01-25-2025 ambulatory Yokasta Miller Facility:[facility] Start: 01-18-2025 End: 01-18-2025 ambulatory Yokasta Miller MD Work Phone: [facility] Work Phone: Start: 01-18-2025 End: 01-18-[address] Yokasta Miller MD -Laboratory [facility] Start: 01-18-2025 End: 01-18-2025 ambulatory Yokasta Miller Facility:[facility] Start: 12-10-2024 End: 12-10-2024 Patient encounter procedure Neptali Murray MD Work Phone: [facility] Comment on above: Pain in left hand Start: 12-10-2024 End: 12-10-2024 ambulatory NEPTALI MURRAY Facility[facility] Start: 11-01-2024 ambulatory NEPTALI MURRAY Fa cility:[facility] Start: 11-01-2024 End: 11-01-2024 Subsequent hospital visit by physician Mri [facility] (1.5t/Lg Bore 70cm) Work Phone: [facility] Comment on above: Localized swelling, mass, or lump of left upper extremity [R22.32] Start: 10-07-2024 End: 10-07-2024 Orders Only Neptali Murray MD Work Phone: [facility] Comment on above: Mass of left hand (P rimary Dx); Localized swelling, mass, or lump of left upper extremity Start: 10-05-2024 End: 10-05-2024 ambulatory Neptali Murray MD Work Phone: [facility] Comment on above: Vein ultrasound resu lts Start: 09-24-2024 ambulatory Chalon Maico Facility:[facility] Start: 09-24-2024 End: 09-24-2024 ambulatory Shayla Kauffman Facility:[facility] Start: 09-17-2024 End: 09-17-2024 Patient encounter procedure Neptali Murray MD Work Phone: [facility] Comment on above: Mass of left hand (P rimary Dx) Start: 09-17-2024 End: 09-17-2024 ambulatory NEPTLAI MURRAY [facility] Start: 09-09-2024 End: 09-09-2024 Telephone encounter Neptali Murray MD Work Phone: [facility] Comment on above: Consult Start: 08-31-2024 End: 08-31-2024 ambulatory Shayla Kauffman Facility:[facility] Start: 08-31-2024 End: 08-31-2024 ambulatory Chalon Maico Facility:[facility] Start: 08-05-2024 End: 08-05-2024 ambulatory Chalon Maico Facility:[facility] Start: 07-22-2024 End: 07-22-2024 ambulatory Chalon Maico Facility:[facility] Start: 09-23-2023 End: 09-23-2023 ambulatory HEIDI HERNANDEZ [facility] Start: 09-23-2023 End: 09-23-2023 Office outpatient visit 15 minutes Heidi Hernandez PA-C Work Phone: [facility] Comment on above: Adjustment reaction with anxiety and depression Start: 09-18-2023 Refill Latrice huff MD Work Phone: [facility] Comment on above: Adjustment reaction with anxiety and depression Start: 01-20-2023 ambulatory [id number] Start: 01-17-2023 ambulatory Ms[id number] Start: 09-26-2022 Refill Latrice huff MD Work Phone: [facility] Comment on above: Adjustment reaction with anxiety and depression Start: 08-26-2022 End: 08-26-2022 Office outpatient visit 15 minutes Latrice Horner MD Work Phone: [facility] Comment on above: Adjustment reaction with anxiety and depression (Primary Dx) Start: 01-03-2020 End: 01-03-2020 Subsequent hospital visit by physician Zhane Hansen Work Phone: [facility] Comment on above: Hand pain, left; Thumb pain, left Procedures Date Procedure Procedure Detail Performing Clinician Start: 01-18-2025 Vitamin D, 25-hydrox y measurement Yokasta Miller MD Work Phone: Comment on above: Vitamin D StatusDefi ciency: <20 ng/mL (50nmol/L)Insufficiency: 20-30 ng/mL (50-75 nmol/L)Sufficiency: 30-100 ng/mL (75-250 nmol/L)Toxicity: >100 ng/mL (>250 nmol/L) Start: 01-03-2020 Radex hand minimum 3 views Zhane Hansen Work Phone: Plan of Treatment Date Care Activity Detail Author Start: 06-30-2044 RSV Immunization age d 60 or older (1 - 1-dose 60+ series) RSV Immunization aged 60 or older (1 - 1-dose 60+ series) [facility] Start: 01-31-2034 Zoster Vaccines (1 o f 2) Zoster Vaccines (1 of 2) [facility] Start: 04-04-2025 Influenza vaccination Influenz a Vaccine (Season Ended) [facility] Start: 01-25-2025 MG Breast - bilatera l Screening [facility] Start: 01-25-2025 Screening mammography SCRN GISSELL M (CAD)W/LIZA BILAT [facility] Start: 12-22-2024 End: 12-22-2024 Patient encounter procedure 12/22/2024 1:00 PM EDT Office Visit [facility] [address] [place], [place] [phone] Jada Gerard DO [address] [place], [place] [id number] New Hospital Discharge F/up - Second opinion regarding hand pain with Dr. Gerard [facility] Comment on above: New Hospital Dischar ge F/up - Second opinion regarding hand pain with Dr. Gerard Start: 12-10-2024 End: 12-10-2024 Patient encounter procedure 12/10/2024 1:00 PM EDT Office Visit [facility] [address] [place], [place] [address] Neptali Murray MD [address] [place], [place] [phone] EST - L HAND MASS - MRI F/U 11/01/24 -LG [facility] Comment on above: EST - L HAND MASS - MRI F/U 11/01/24 -LG Start: 09-17-2024 End: 09-17-2024 Patient encounter procedure 09/17/2024 11:00 AM EST Office Visit [facility] [address] [place], [place] [id number] Neptali Murray MD [address] [place], [place] [phone] L HAND/ARTERY PAIN REF BY VASCULAR [facility] Comment on above: L HAND/ARTERY PAIN R EF BY VASCULAR Start: 04-04-2024 Covid-19 Vaccine ( season) Covid-19 Vaccine ( season) [facility] Start: 04-04-2024 Influenza vaccination Influenza Vacc ine (#1) [facility] Start: 03-22-2024 End: 03-22-2024 Patient encounter procedure 03/22/2024 8:40 AM EDT Office Visit [facility] [address] [place] [phone] Heidi Hernandez PA-C [address] [place], [place] [phone] [facility] Start: 2024 Screening for malign ant neoplasm of breast Mammogram Screening [facility] Start: 09-23-2023 End: 09-23-2023 Patient encounter procedure 09/23/2023 8:40 AM EST Office Visit [facility] [address] [place] [phone] Heidi Hernandez PA-C [address] [place] [address] [facility] Start: 04-04-2023 Influenza vaccination Influenza Vacc ine (#1) [facility] Start: 04-04-2022 Influenza vaccination Influenza Vacc ine (#1) [facility] Start: 12-10-2020 Screening for malign ant neoplasm of cervix Cervical cancer screen [employer] Start: 04-04-2020 Influenza vaccination Flu vacc ine (Season Ended) [employer] Start: 01-31-2014 Screening for malign ant neoplasm of cervix [facility] Start: 01-31-2005 Screening for malign ant neoplasm of cervix [facility] Start: 01-31-2003 DTaP/Tdap/Td vaccine (1 - Tdap) DTaP/Tdap/Td vaccine (1 - Tdap) [employer] Start: 01-31-2003 DTaP/Tdap/Td Vaccine s (1 - Tdap) DTaP/Tdap/Td Vaccines (1 - Tdap) [facility] Start: 01-31-2003 Hepatitis B Vaccine (1 of 3 - 19+ 3-dose series) Hepatitis B Vaccine (1 of 3 - 19+ 3-dose series) [facility] Start: 01-31-2003 Urine microalbumin profile DTaP,Tdap,Td Vaccine (1 - Tdap) [facility] Start: 01-31-2002 Anxiety Screening Anxiety Screening [facility] Start: 01-31-2002 Depression Screening Depression Scre ening [facility] Start: 01-31-2002 Hepatitis C screening Hepatitis C Sc reening [facility] Start: 01-31-2002 HIV screening HIV Screening [facility] Start: 01-31-1999 [facility] [place] [place] Start: 1996 Depression Screening Depression Scre ening [facility] Start: 01-31-1985 MMR Vaccines (1 of 1 - Standard series) MMR Vaccines (1 of 1 - Standard series) [facility] Start: 01-31-1985 Varicella vaccination Varicell a Vaccines (1 of 2 - 2-dose childhood series) [facility] Start: 01-31-1985 Varicella vaccine (1 of 2 - 2-dose childhood series) Varicella vaccine (1 of 2 - 2-dose childhood series) [employer] Start: 1984 COVID-19 Vaccine (#1) COVID-19 Vacci ne (#1) [facility] Start: 1984 Hepatitis B Vaccines (1 of 3 - 3-dose series) Hepatitis B Vaccines (1 of 3 - 3-dose series) [facility] Start: 1984 HIV screening HIV Screening [facility] End: 11-06-2025 MR Hand - left WO contrast MRI HAND WO IVCON LEFT Radiology Routine Localized swelling, mass, or lump of left upper extremity 1 Occurrences starting 10/07/2024 until 11/06/2025 [facility] Work Phone: Comment on above: 1 Occurrences starti ng 10/07/2024 until 11/06/2025 End: 11-01-2024 MR Hand - left WO contrast [facility] Work Phone: Comment on above: 1 Occurrences starti ng 11/01/2024 until 11/01/2024 XR Hand - left PA an d Lateral and Oblique XR HAND GENERAL 3V PA/LAT/OBL LEFT Radiology Routine Mass of left hand Ordered: 09/18/2024 [facility] Work Phone: Comment on above: Ordered: 09/18/2024 Payers Date Payer Category Payer Self-pay 2023 Medicaid [id number] 2023 Medicaid [id number] 1985 Unknown [id number] 2.16.8 [id number] 1984 Unknown [id number] 2.16.8 [id number] Unknown [id number] 2.16.8 [id number] Unknown [id number] 2.16.8 [id number] Unknown [id number] 2.16.8 [id number] Unknown [id number] 2.16.8 [id number] Unknown [id number] 2.16.8 [id number] Unknown [id number] 2.16.8 [id number] Unknown [id number] 2.16.8 [id number] Unknown [id number] 2.16.8 [id number] Unknown [id number] 2.16.8 [id number] Unknown [id number] 2.16.8 [id number] Social History Date Type Detail Facility Start: 01-03-2020 End: 09-17-2024 Tobacco smoking status NHIS Former smoker [facility] [place] History of tobacco use [facility] Start: 01-03-2020 End: 09-17-2024 Cigarettes smoked current (pack per day) - Reported [facility] Start: 01-03-2020 Alcohol intake 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 Patient declined [facility] Are you now , , , , never or living with a partner? [facility] How often to you hav e a drink containing alcohol? Never [facility] How hard is it for y ou to pay for the very basics like food, housing, medical care, and heating Not very hard [facility] Do you feel stress - tense, restless, nervous, or anxious, or unable to sleep at night because your mind is troubled all the time - these days [OSQ] Only a little [facility] (I/We) worried wheth er (my/our) food would run out before (I/we) got money to buy more. Never true [facility] In the past 12 month s, was there a time when you were not able to pay the mortgage or rent on time? No [facility] Start: 08-26-2022 History SDOH Alcohol Frequency 1 [facility] Start: 08-26-2022 History SDOH Alcohol Std Drinks 0 [facility] Start: 08-26-2022 History SDOH Social Connections Phone 2 [facility] Start: 08-26-2022 History SDOH Social Connections Christian 98 [facility] Start: 08-26-2022 History SDOH Social Connections Living 5 [facility] Start: 08-26-2022 History SDOH Physica l Activity MPS 6 [facility] Start: 08-26-2022 History SDOH Financial 4 [facility] Start: 08-16-2022 End: 08-26-2022 Exposure to SARS-CoV-2 (event) Not sure [facility] Start: 12-04-2015 [facility] Start: 09-17-2024 Tobacco use and exposure Smoke less tobacco non-user [facility] Start: 09-18-2024 End: 12-10-2024 Alcoholic beverage intake Ex-drinker (finding) [facility] Start: 08-02-2024 [facility] Never smoked tobacco (finding) [facility] Start: 1985 Sex Assigned At Female W [facility] Clinical Notes 08-26-2022 to 12-10-2024 Neptali Murray MD - 12/10/2024 4:02 PM Danyelle Cuevas, hot wort settler - 11/01/2024 5:15 PM Neptali Toussaint MD - 09/18/2024 11:55 AM Adrian Hermosillo Tech - 09/17/2024 10:35 AM EST Note Date & Type Note Facility 12-10-2024 Note HNO ID: [id number] Author: NEPTALI MURRAY MD Service: ? Author [...] *The patient consented to the use of ambient xoompark software for draft documentation of the visit consistent with [facility]?s Notice of Privacy Practices.* [facility] 12-10-2024 History of Presen t illness [...] *The patient consented to the use of RIISnet software for draft documentation of the visit consistent with [facility] s Notice of Privacy Practices.* documented in this encounter [facility] 11-01-2024 History of Presen t illness [...] PATIENT PRESENTS WITH AN IMPLANTABLE OR ATTACHED BOAT HOP: No RADIOLOGY DEPARTMENT: MR; Exam(s) Completed: Upper MSK: Hand, left PERIPHERAL IV DATA: Not applicable SIGNED BY: ROSEMARIE Bernal November 01, 2024 5:25 PM documented in this encounter [facility] 11-01-2024 Note HNO ID: [id number] Author: DANYELLE LOPEZ MRI Tech Service: ? [...] PATIENT PRESENTS WITH AN IMPLANTABLE OR ATTACHED BOAT HOP: No RADIOLOGY DEPARTMENT: MR; Exam(s) Completed: Upper MSK: Hand, left PERIPHERAL IV DATA: Not applicable SIGNED BY: ROSEMARIE Bernal November 01, 2024 5:25 PM [facility] 09-18-2024 Note HNO ID: [id number] Author: NEPTALI MURRAY MD Service: ? Author Type: Physician Type: Progress Notes Filed: 09/18/2024 11:59 Note Text: Hand Surgery New Pt Note HPI: 39-year-old female ixycu-mlqi-oeyloprh not working No diabetes, no smoking She thinks that in 2019 this thenar mass arose and it has been worked up at [facility] Never had an MRI Never had an [...] she is scheduled for vein ultrasound at [place] and I think she should get this [...] words or phrases that may be inappropriate.* [facility] 09-18-2024 History of Presen t illness Narrative Hand Surgery New Pt Note HPI: 39-year-old female ylafb-mwgc-iyiozqea not working No diabetes, no smoking She thinks that in 2019 this thenar mass arose and it has been worked up at [facility] Never had an MRI Never had an [...] she is scheduled for vein ultrasound at [place] and I think she should get this [...] clots, bleeding disorders. documented in this encounter [facility] 09-17-2024 Note HNO ID: [id number] Author: ADRIAN GUILLORY Tech Service: ? 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 [facility] 09-09-2024 Telephone encount er Note APPT ,MADE [facility] 09-09-2024 Telephone encount er Note ----- Message [...] other than patient: no Best contact number: [phone] Thank you, Shayla Gunderson September 09, 2024 12:55 PM [facility] 09-09-2024 Miscellaneous Notes Formattin g of this [...] other than patient: no Best contact number: [phone] Thank you, Shayla Jalyn September 09, 2024 12:55 PM documented in this encounter [facility] 09-23-2023 Evaluation + Plan note Associated Problem(s): 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 - Continue Lamictal and Celexa. - F/u in 6 months at [facility]. [facility] 09-23-2023 Miscellaneous Notes Associate d Problem(s): 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 - Continue Lamictal and Celexa. - F/u in 6 months at [facility]. documented in this encounter [facility] 09-23-2023 History of Presen t illness Narrative Images from the original note were not included. [facility] [address] [facility] [facility] [address] Dept: [phone] Dept Reason for Visit: Med Refill Assessment [...] normal. Data Reviewed and Summarized Labs: Imaging/Testing: Heidi Hernandez PA-C documented in this encounter [facility] 09-22-2023 Telephone encount er Note Patient scheduled 09/23/23 [facility] 09-22-2023 Miscellaneous Notes Formattin g of this note might be different from the original. Patient scheduled 09/23/23 Lmom asking pt to call back to schedule for Rx refill, or to schedule through [facility] Pt needs an appt for physical Pls call to schedule documented in this encounter [facility] 09-19-2023 Telephone encount er Note Lmom asking pt to call back to schedule for Rx refill, or to schedule through [facility] 09-18-2023 Telephone encount er Note Pt needs an appt for physical Pls call to schedule [facility] 08-26-2022 Evaluation + Plan note Associated Problem(s): Adjustment reaction with anxiety and depression Chronic, stable Tolerates the lamotrigine and citalopram Checked the labs last year Patient is self pay. Will repeat next year Adjust the dose as indicated [facility] 08-26-2022 Miscellaneous Notes Associate d Problem(s): Adjustment reaction with anxiety and depression Chronic, stable Tolerates the lamotrigine and citalopram Checked the labs last year Patient is self pay. Will repeat next year Adjust the dose as indicated documented in this encounter [facility] 08-26-2022 History of Presen t illness Narrative [...] 200 MG tablet documented in this encounter [facility] Evaluation note Diagnosis Adjustment reaction with anxiety and depression Adjustment disorder with mixed anxiety and depressed mood documented in this encounter [facility] HealthEvaluation note* Diagnosis Adjustment reaction with anxiety and depression Adjustment disorder with mixed anxiety and depressed mood [facility] Diagnosis Adjustment reaction with anxiety and depression- Primary Adjustment disorder with mixed anxiety and depressed mood [facility] Diagnosis Adjustment reaction with anxiety and depression Adjustment disorder with mixed anxiety and depressed mood [facility] Diagnosis Mass of left hand- Primary documented in this encounter [facility] note* Diagnosis Mass of left hand- Primary Localized swelling, mass, or lump of left upper extremity documented in this encounter [facility] note* Diagnosis Localized swelling, mass, or lump of left upper extremity documented in this encounter [facility] note* Diagnosis Pain in left hand [facility] noteNo assessment information availableWSelect [facility] [place] Work Phone: Reason for referral (narrative)No reason for referral information availableWSelect [facility] [place] Work Phone: Reason for visit Narrative* MRI/CT (Routine) - Closed Specialty Diagnoses / Procedures Referred By Contjabier t Referred To Contact MR IMAGING Diagnoses Localized swelling, mass, or lump of left upper extremity Procedures MRI HAND WO IVCON LEFT MRI UPPER EXTREMITY OTH THAN JT W/O CONTR MATRNeptali Crawley MD [address] [facility] [address] [place] [address] Phone: tel: fax: [place] [id number] Referral ID Status Reason Start Date Expiration Date V isits Requested Visits Authorized [id number] Closed Auto-Generate d Referral 10/19/2024 12/18/2024 1 1 [facility] Assessments Diagnosis Hand pain, left Pain in limb Thumb pain, left Advance Directives No Advanced Directives Records FoundDocuments on File Type Date Recorded 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 Advance Directives and Living Will Power of Cloud Security Architect Summary Purpose Family History No Family History [...] section and content) DATE CREATED AUTHOR [facility]04[facility]2020 [facility] DATE CREATED AUTHOR AUTHOR'S ORGANIZ ATION 01/23/2023 [facility] DATE CREATED AUTHOR AUTHOR'S ORGANIZ ATION 09/23/2023 [facility] DATE CREATED AUTHOR AUTHOR'S ORGANIZ ATION 12/12/2024 [facility] DATE CREATED AUTHOR AUTHOR'S ORGANIZ ATION 02/03/[address] [facility] Reason for Visit (unrecogniz ed section and content) Reason Comments Med Refill Reason Comments Med Refill Medications are pend ing. No questions or concerns when asked. Reason Comments Consult Reason Comments New Pain Reason Comments Pain Established Patient Swelling Care Teams (unrecognized sec tion and content) Instructor Of Spanish Relationship Specialty Start Date End Date Latrice Horner MD [address] [place], [place] [id number] PCP - General 11/02/15 Instructor Of Spanish Relationship Specialty Start Date End Date Latrice Horner MD [address] [place] [address] PCP - General 11/02/15 Instructor Of Spanish Relationship Specialty Start Date End Date Latrice Horner MD [address] [place], [place] [id number] PCP - General 11/02/15 Instructor Of Spanish Relationship Specialty Start Date End Date Latrice Horner MD [address] [place] [address] PCP - General 11/02/15 Instructor Of Spanish Relationship Specialty Start Date End Date Yokasta Miller MD [address] [place] [address] PCP - General Internal Medicine 09/09/24 Instructor Of Spanish Relationship Specialty Start Date End Date Yokasta Miller MD [address] [facility] [address] [place] [address] PCP - General Internal Medicine 09/09/24 Instructor Of Spanish Relationship Specialty Start Date End Date Yokasta Miller MD [address] [place] [address] PCP - General Internal Medicine 09/09/24 Instructor Of Spanish Relationship Specialty Start Date End Date Yokasta Miller MD [address] [facility] [address] [place] [address] PCP - General Internal Medicine 09/09/24 Instructor Of Spanish Relationship Specialty Start Date End Date Yokasta Miller MD [address] [facility] [address] [place] [address] PCP - General Internal Medicine 09/09/24 Team [...] 2025 Team Status: Inactive Member Role/Relationship Status Dates Yokasta Miller MD Primary Care Provider Active St [...] or prosecute any alcohol or drug abuse patient.[facility] HospitalIn the event this information is protected by the Federal Confidentiality of Alcohol and Drug Abuse Patient Records regulations: The Federal rules restrict any use of the information to criminally investigate or prosecute any alcohol or drug abuse patient.[facility] Hospital[facility] the event this information is protected by the Federal Confidentiality of Alcohol and Drug Abuse Patient Records regulations: The Federal rules restrict any use of the information to criminally investigate or prosecute any alcohol or drug abuse patient.[facility] HospitalIn the event this information is protected by the Federal Confidentiality of Alcohol and Drug Abuse Patient Records regulations: The Federal rules restrict any use of the information to criminally investigate or prosecute any alcohol or drug abuse patient.[facility] HospitalIn the event this information is protected by the Federal Confidentiality of Alcohol and Drug Abuse Patient Records regulations: The Federal rules restrict any use of the information to criminally investigate or prosecute any alcohol or drug abuse patient.[facility] HospitalIn the event this information is protected by the Federal Confidentiality of Alcohol and Drug Abuse Patient Records regulations: The Federal rules restrict any use of the information to criminally investigate or prosecute any alcohol or drug abuse patient.[facility] Goals (unrecognized section and content) Goals [...] BE BASED ON THE PRIMARY CLINICAL RECORDS. [facility]. provides no warranty or guarantee of the accuracy or completeness of information in this document.
== END | disposition home or self-care (01) ==
LOC: OPBI 09:19
PROVIDERS: PCP Family Medicine; Referring Provider Family Medicine; Visit Provider Family Medicine
DX: N64.89 Other specified disorders of breast (principal); R92.8 Other abnormal and inconclusive findings on diagnostic imaging of breast
CPT/HCPCS: 77062; 76642; 77065; G0279